=== PATIENT | female | born 2000 | race Caucasian/White ===

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

== ENCOUNTER 2020-01-24 13:31 | Emergency (ER) | payer MEDICAID, OTHER ==
--- OUTSIDE RECORDS SUMMARY | 2020-01-24 13:38 | XMS REPORT | Continuity of Care Document ---
:2000 Author Organization [facility] Address [address] [place] [address] Phone Care Team Providers Name Role Phone Ignacio Pickens STAFFING RN, Steffanie Unavailable Unavailable Allergies, Adverse Reactions, Alerts Substance Reaction Status morphine Active lorazepam SeizureStop breathing Active Medications Medication Instructions Dosage Effective Dates Status Comments (start - stop) MAGNESIUM (unknown Not Available - Active strength) LANTUS (unknown Not Available - Active strength) Humalog 100 unit/mL inject by - Active subcutaneous subcutaneous route solution as per insulin sliding scale protocol Problems Condition Effective Dates (start - Clinical Status Comments stop) Human immunodeficiency virus [HIV] - counseling Encounter for test, result negative Human immunodeficiency virus [HIV] - counseling Encounter for test, result negative Human immunodeficiency virus [HIV] - counseling Encounter [...] PREVENTIVE COUNSELING, Under 8 Minutes URINE TEST MA ONLY VISIT EST OTHER Medical Services Contraceptive 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 Other 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 STI Results Test Name Date and Time Measure Units Reference Range Abnormal Flag Status Comments Panel Description: High Sensitivity Urine Test Final High Sensitivity Urine 14:39:56 NegativeInternal Quality Final Test Control: Positive Advance Directives Directive Yes / No Effective Date File Name No information Encounters Encounter Practice Location Reason(s) Diagnoses Date Provider Providers Description For Visit Copied on Encounter [facility] [place] [facility] [place] Test immunodeficienc [facility] Provider: Of [facility] (chief y virus [HIV] 0 [facility]. [address] [place], [facility] counselingEncou [address], [place] [address] [place], [place], [facility], , [place], [address]. [address] [place], [place], result negative tel:[phone], [id number], [address] [place], [place] [address]. tel:[phone] tel:[phone] [facility] Charissa Nell. Referring [facility] [place] immunodeficienc [address] Provider: Of Greater y virus [HIV] 0 [facility], [place], [address], [place], [address] for [place]. [address], [place], , [place], [place], [place], [id number], [id number].Consu [place] lting tel:[phone] Provider: [id number] [place] [facility]. [facility]- Charissa Camejo. Referring [facility] [place] immunodeficienc [address] Provider: Of Greater y virus [HIV] 9 , [facility], [place], [address], [place], [address] for [place]. [address], [place], , [place], [place], [place], [id number], [address].Consu [place] l[place] tel:+ Provider: [id number] [place] [facility]. [facility] Encounter for Charissa Camejo. Referring [facility] [place] test, [address] Provider: Of Greater result [address], [place], [place], [address], [place], [address] for oth [place]. [address], [address], [place], [place], [place], [place], [address]. [id number], contraceptionEn [place] cntr screen for tel:[phone] w [phone] sexl mode of transmissCandid iasis of vulva and vaginaType 1 diabetes mellitus with unspecified complicationsDy suriaFrequency of micturition [facility] Encounter for Charissa Camejo. [facility] [place] [facility], [address] Of Greater [address], [place], [place], [place], [address], [address] [place], [place], [place], and advice on [id number], contraceptionEn [place] cntr screen for tel:[phone] infections w [phone] sexl mode of transmissUlcera tion of vulvaCandidiasi s of vulva and vagina [facility] Encounter for Charissa Camejo. [facility] [place] test, [address] Provider: Of Greater result negative [address], [place], [place], [address], [facility]. [address], [place], [place], [id number], [place] tel:[phone] [facility] Encounter for Jose L Referring [facility] [place] test, Julia. [address] Provider: Of Greater result [address], [place], negativeEncntr [place], [place], [place]anksha R, [address] [place] [address], New infections w tel:[phone] [address] , [place], [place], [place] [address] [place], [place], [id number], transmissEncoun [address] for initial tel:[phone] tel:[phone] prescription of [id number] injectable contracep [facility] Encounter for Charissa Camejo. [facility] [place] [facility], [address] Provider: Of [facility] result negative [address], [place], [place], [address], [facility]. [address] [place], [place], [id number], tel:[phone] [facility] PT, NegativeSTI [place] José. [facility] [place] Screening [address] Provider: Of [facility] [address], [place], [address]. [facility]. [address] tel:[phone], [id number], tel:[phone] Family History Family Member Diagnosis Age At [...] information Payers Payer name Insurance type Covered democrat ID Authorization(s) [facility] CI [id number] Social History Type Description Quantity Date Captured Comments Alcohol Use Details Unknown Caffeine Use Details Unknown Tobacco Use Status Unknown Smoking Status Former smoker Non-Smoking Tobacco : No Details Available : No Details Available 2019 Use Details Sex Female Vital Signs Date / Height Weight BMI Pulse Blood Temperature Respiratory Body Head BMI Pulse Inhaled Time: Rate Pressure Rate Surface Circumference percentile Ox Ox Area No information Chief Complaint And Reason For Visit Most recent encounter only, dated '01/18/2020 14:30'. Test ( chief complaint) Reason For Referral Reason For Referral No information Plan Of Treatment Date Type Action Status Appointment ZHANG COOK, PUMA. CHCitlaly BOOKED History Of Present Illness Encounter Date Complaint [...] Date No information Medical Equipment Description Device [place] Device Identifier Effective Dates (start - stop ) Status No information Mental Status Date Cognitive Assessment No information Health Concerns Observation Date No information Concern Status Date No information
--- OUTSIDE RECORDS SUMMARY | 2020-01-24 13:39 | XMS REPORT | Continuity of Care Document ---
:2000 External Reference #:[id number] Author Name Jaci Chowdhury Care Team Providers Name Role Phone Ac Espinoza DO - Family Care Team Information [employer] Medicine Problems Active Problems Provider Date Ketoacidosis [...] SIG Qnty Indications Ordering Date Provider Admelog for use in Insulin 30ml E10.65 Yogesh Mejia MD 01/01/2020 100Unit/ML pump, MDD 100 units Solution Humalog use with insulin 30ml Yogesh Mejia MD 10/10/2019 100Unit/ML pump, sliding scale Solution Minimed Guardian use with insulin 8units E10.65 Yogesh Mejia MD 10/10/2019 Sensor 3 pump, change every Misc 3-4 days as needed Minimed Pump use with insulin 10units E10.65 Yogesh Mejia MD 10/10/2019 Archbald 3ML pump every 3 days Res 3ML Misc Guardian Link 3 use with guardian 1units E10.65 Yogesh Mejia MD 10/10/2019 Transmitter sensors Link 3 Misc Freestyle Lite use to check your 1units E10.9 Nadine Umaña, 09/12/2019 Blood Glucose glucose 4 x/day DOORPERSON OR LU[employer]AGE PORTER-Cde Monitoring System Device Freestyle Precision test sugar as 75units E10.9 Nadine Fabiankins, 09/12/2019 Tacho Blood Glucose needed at least DOORPERSON OR LUGGAGE PORTER-Cde Test Strips 4x/day Strips Freestyle Unistick Use 4x/day 100units E10.9 Nadine Fabiankins, 09/12/2019 II Lancets DOORPERSON OR LUGGAGE PORTER-Cde Misc Freestyle Lite Test test blood sugar 4 200units E10.9 Nadine Chasidy, 09/12 times daily and as DOORPERSON OR LUGGAGE PORTER-Cde Strips needed Contour Next Link use to check blood 1units Yogesh Mejia MD 02/17/2019 Wireless Blood 6-8 times daily. Glucose Monitoring for use with Neronote 670g w/Device Kit insulin pump. Contour Next [...] (5000 Ut) Capsules seven capsules once weekly [place] Carbonate 1 capsule by mouth Unknown 3 times a day for 300mg Capsules manic-depression Thrivite 19 1 tablet by mouth Unknown 29-1mg once daily Tablets History Medications Admelog per day as 20ml Yogesh Mejia MD 09/26/2019 - 100Unit/ML directed in 10/04/2019 Solution insulin pump MDD 40 units daily Humalog Kwikpen 1:8 carb ratio, 30ml E10.9 Nadine Chasidy, 08/30/2019 - use with meals and DOORPERSON [employer] LU[employer]AGE PORTER-Cde 09/26/2019 100Unit/ML Solution snacks MDD 40 Pen-Inject [...] % Weight Percentile >97th Results Test Acquired Facility Test Result H/L Range Note Date Laboratory 01/03/2020 [facility] D Dimer < 200 Normal Less Than 1 test finding [address] Quantitative ng/mL [address] [place] [address] [phone] Troponin-I (TnI) 0.00 ng/mL <0.03 2 Lipid Panel - 01/03/2020 [facility] Creatine 71 U/L Normal 10- [address] Kinase(CK) [place] [address] [phone] Comp Metabolic 01/03/2020 [facility] Sodium 136 Normal 135- [address] mmol/[place] [address] [phone] Potassium 4.3 mmol/L Normal 3.5-5.0 Chloride 103 mmol/L Normal 101-111 Co2 Carbon Dioxide 26 mmol/L Normal 22-32 Anion Gap 7 mmol/L Normal 2-11 Glucose 230 mg/dL High 70-100 Blood Urea Nitrogen 15 mg/dL Normal 6-24 Creatinine 0.65 mg/dL Normal 0.51-0.95 BUN/Creatinine Ratio 23.1 High 8-20 Calcium 9.4 mg/dL Normal 8.6-10.3 Total Protein 6.5 g/dL Normal 6.4-8.9 Albumin 4.2 g/dL Normal 3.2-5.2 Globulin 2.3 g/dL Normal 2-4 Albumin/Globulin Ratio 1.8 Normal 1-3 Total Bilirubin 0.80 mg/dL Normal 0.2-1.0 Alkaline Phosphatase 81 U/L Normal 34-104 Alt 22 U/L Normal 7-52 Ast 17 U/L Normal 13-39 Egfr Non- 117.4 >60 Egfr 142.1 >60 3 Lipid Profile 01/03/2020 [facility] Triglycerides 118 mg/dL 4 (Trig/Chol/HDL) [address] [place] [address] [phone] Cholesterol 170 mg/dL 5 HDL Cholesterol 46.9 mg/dL 6 LDL Cholesterol 100 mg/dL 7 Laboratory test 01/03/2020 [facility] Phosphorus 4.2 mg/dL Normal 2.5-5.[address] [place] [address] [phone] Magnesium 1.9 mg/dL Normal 1.9-2.7 [place] 0.84 mmol/L Normal 0.6-1.2 Laboratory 12/15/2019 [facility] D Dimer < 200 Normal Less [address] Quantitative ng/mL Than [address] [place] [address] [phone] CBC Auto Diff 12/15/2019 [facility] White Blood 11.2 High 3.5- 10.8 101 Count 10^3/[place] [address] [phone] Red Blood Count 4.76 10^6/uL Normal 3.70-4.87 Hemoglobin 14.3 g/dL Normal 12.0-16.0 Hematocrit 41 % Normal 35-47 Mean Corpuscular Volume 85 fL Normal 80-97 Mean Corpuscular Hemoglobin 30 pg Normal 27-31 Mean Corpuscular HGB Conc 35 g/dL Normal 31-36 Red Cell Distribution Width 13 % Normal 10-15 Platelet Count 271 10^3/uL Normal 150-450 Mean Platelet Volume 9.3 fL Normal 7.4-10.4 Abs Neutrophils 8.2 10^3/uL High 1.5-7.7 Abs Lymphocytes 2.2 10^3/uL Normal 1.0-4.8 Abs Monocytes 0.7 10^3/uL Normal 0-0.8 Abs Eosinophils 0.1 10^3/uL Normal 0-0.6 Abs Basophils 0.0 10^3/uL Normal 0-0.2 Abs Nucleated RBC 0.0 10^3/uL Granulocyte % 72.7 % Lymphocyte % 19.6 % Monocyte % 6.4 % Eosinophil % 0.9 % Basophil % 0.4 % Nucleated Red Blood Cells % 0.1 Laboratory test 12/15/2019 [facility] Troponin-I (TnI) 0.01 ng/ mL <0.[address] [place] [address] [phone] Lipid Profile 12/15/2019 [facility] Triglycerides 116 mg/dL 10 (Trig/Chol/HDL) [address] [place] [address] [phone] Cholesterol 176 mg/dL 11 HDL Cholesterol 57.9 mg/dL 12 LDL Cholesterol 95 mg/dL 13 Laboratory test 12/15/2019 [facility] Creatine 133 U/L Normal 10-[address] Kinase(CK) [place] [address] [phone] Comp Metabolic 12/15/2019 [facility] Sodium 137 Normal 135- [address] mmol/[place] [address] [phone] Potassium 4.5 mmol/L Normal 3.5-5.0 Chloride 102 mmol/L Normal 101-111 Co2 Carbon Dioxide 27 mmol/L Normal 22-32 Anion Gap 8 mmol/L Normal 2-11 Glucose 323 mg/dL High 70-100 Blood Urea Nitrogen 12 mg/dL Normal 6-24 Creatinine 0.68 mg/dL Normal 0.51-0.95 BUN/Creatinine Ratio 17.6 Normal 8-20 Calcium 9.4 mg/dL Normal 8.6-10.3 Total Protein 6.6 g/dL Normal 6.4-8.9 Albumin 4.2 g/dL Normal 3.2-5.2 Globulin 2.4 g/dL Normal 2-4 Albumin/Globulin Ratio 1.8 Normal 1-3 Total Bilirubin 0.60 mg/dL Normal 0.2-1.0 Alkaline Phosphatase 93 U/L Normal 34-104 Alt 19 U/L Normal 7-52 Ast 13 U/L Normal 13-39 Egfr Non- 111.5 >60 Egfr 134.9 >60 14 Laboratory test 12/15/2019 [facility] Phosphorus 3.7 mg/dL Normal 2.5-5.0 finding [address] [place] [address] [phone] Magnesium 1.7 mg/dL Low 1.9-2.7 [place] < 0.10 mmol/L Low 0.6-1.2 HCG < 0.60 mIU/mL 15 Vitamin B12 485 pg/mL Normal 180-914 16 1 Please note: The following may produce a false positive D Dimer test: - Rheumatoid factor greater than 60 IU/ml - Plasma hemoglobin greater than 0.05 gm/dl - Bilirubin greater than 50 mg/dl - Lipids greater than 1000 mg/dl - FDP greater than 20 ug/ml 2 Troponin-I testing on Plasma Separator Tubes (PST) has a known false positive rate of 0.20-0.40%. All positive troponins reflex immediately to secondary confirmatory testing. Using the [employer] DxI 800 Access Immunoassay systems, the 99th percentile upper reference limit was demonstrated to be < 0.03 ng/mL. 3 Because ethnic data is not always readily [...] 15-29 5 Kidney failure <15 (or dialysis) 4 Desirable: <150 Borderline High: 150-199 High: 200-499 Very High: >500 5 Desirable: <200 Borderline High: 200-239 High: >239 6 Low: <40 Desirable: 40-60 High: >60 7 Desirable: <100 Near Optimal: 100-129 Borderline High: 130-159 High: 160-189 Very High: >189 8 Please note: The following may produce a false positive D Dimer test: - Rheumatoid factor greater than 60 IU/ml - Plasma hemoglobin greater than 0.05 gm/dl - Bilirubin greater than 50 mg/dl - Lipids greater than 1000 mg/dl - FDP greater than 20 ug/ml 9 Troponin-I testing on Plasma Separator Tubes (PST) has a known false positive rate of 0.20-0.40%. All positive troponins reflex immediately to secondary confirmatory testing. Using the [employer] DxI 800 Access Immunoassay systems, the 99th percentile upper reference limit was demonstrated to be < 0.03 ng/mL. 10 Desirable: <150 Borderline High: 150-199 High: 200-499 Very High: >500 11 Desirable: <200 Borderline High: 200-239 High: >239 12 Low: <40 Desirable: 40-60 High: >60 13 Desirable: <100 Near Optimal: 100-129 Borderline High: 130-159 High: 160-189 Very High: >189 14 Because ethnic data is not always readily [...] 15-29 5 Kidney failure <15 (or dialysis) 15 <5.0 Negative 5.0 - 25.0 Indeterminate (Repeat testing recommended after 72 hours) >25.0 Positive Perimenopausal women can display HCG levels of up to 20 mIU/mL 16 Normal Range 180 to 914 Indeterminate Range 145 to 180 Deficient Range <145 Procedures Date Code Description Status 12/13/2019 08887 EKG Tracing & Interpretation Completed 12/07/2019 19561 ECHO Transthoracic, Real-Time 2D With Doppler And Color Completed Flow 12/07/2019 43380 ECHO Transthoracic, Real-Time 2D With Doppler And Color Completed Flow 11/10/2019 50956 EEG Recording Awake & Asleep Completed Medical Devices Description No Information Available Encounters Type Date Location Provider Dx Diagnosis Office Visit 12/13/2019 [facility] Jose Perez R55 Syncope and 10:20a Pj Scruggs collapse E10.65 Type 1 diabetes mellitus with hyperglycemia Z79.4 director information security (current) use of insulin F31.31 Bipolar disorder, current episode depressed, mild R07.89 Other chest pain E83.39 Other disorders of phosphorus metabolism E83.42 Hypomagnesemia E66.9 Obesity, unspecified Office Visit 11/10/2019 [facility] 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 Office Visit 10/10/2019 [facility] Yogesh E10.65 Type 1 diabetes 3:40p [facility] MD Roberto mellitus with hyperglycemia Z79.4 director information security (current) use of insulin F31.31 Bipolar disorder, current episode depressed, mild Office Visit 09/26/2019 [facility] and Yogesh Mejia, E10.65 Type 1 diabetes 9:20a Endocrinology of mellitus with Semiautomatic Taper Operator hyperglycemia Z79.4 director information security (current) use of insulin F53.0 depression Office Visit 09/12/2019 [facility] and Nadine Umaña, E10.9 Type 1 diabetes 11:00a Endocrinology of [employer]PERSON [employer]AGE PORTER-Cde mellitus without Semiautomatic Taper Operator complications Office Visit 08/09/2019 [facility] and Yogesh Mejia, E10.9 Type 1 diabetes 3:13p Endocrinology of mellitus without Semiautomatic Taper Operator complications Assessments Date Code Description Provider 12/13/2019 R55 Syncope and collapse Jose Scruggs M.D. 12/13/2019 E10.65 Type 1 diabetes mellitus with Jose Scruggs M.D. hyperglycemia 12/13/2019 Z79.4 director information security (current) use of insulin Jose Scruggs M.D. 12/13/2019 F31.31 Bipolar disorder, current episode Jose Scruggs M.D. depressed, mild 12/13/2019 R07.89 Chest discomfort Jose Scruggs M.D. 12/13/2019 E83.39 Hypophosphatemia Jose Scruggs M.D. 12/13/2019 E83.42 Hypomagnesemia Jose Scruggs M.D. 12/13/2019 E66.9 Obesity, unspecified Jose Scruggs M.D. 12/07/2019 R55 Syncope and collapse Jose Scruggs M.D. 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 10/10/2019 E10.65 Type 1 diabetes mellitus with Yogesh Mejia MD hyperglycemia 10/10/2019 Z79.4 alf (current) use of insulin Yogesh Mejia MD 10/10/2019 F31.31 Bipolar disorder, current episode Yogesh Mejia MD depressed, mild 09/26/2019 E10.65 Type 1 diabetes mellitus with Yogesh Mejia MD hyperglycemia 09/26/2019 Z79.4 director information security (current) use of insulin Yogesh Mejia MD 09/26/2019 F53.0 depression Yogesh Mejia MD 09/12/2019 E10.9 Type 1 diabetes mellitus without KATHRYN Hanna-Tani complications 08/09/2019 E10.9 Type 1 diabetes mellitus without Yogesh Mejia MD complications 08/08/2019 O24.019 Pre-existing type 1 diabetes mellitus, in Abi Aguilera D.O. , unspecified trimester Plan of Treatment Future Appointment(s):01/09/2020 1:20 pm - Yogesh Mejia MD at [facility]01/18/2020 11:00 am - [place] ECHO Schedule at [facility]01/18/2020 11:30 am - Jose Scruggs M.D. at [facility] - Jose Scruggs M.D.R55 Syncope and vdnueyjwG90.65 Type 1 diabetes mellitus with qtmapmklqcalhO90.4 director information security (current) use of pmdxopfX58.31 Bipolar disorder, current episode depressed, mildR07.89 Chest discomfortNew Orders:Stress Test, Exercise Echocardiogram, Scheduled: E83.39 NklebnsshwzvobjpA61.42 KcjgdmfncsuwazJ52.9 Obesity, unspecified Functional Status Description No Information Available Mental Status Description No Information Available Referrals Description No Information Available
--- OUTSIDE RECORDS SUMMARY | 2020-01-24 13:39 | XMS REPORT | Continuity of Care Document ---
:2000 Author Organization [facility] Address [address] [place] [address] Phone Care Team Providers Name Role Phone Charissa SPOT REMOVERNell Unavailable Unavailable [facility], NURSE [place] Unavailable [...] ONLY VISIT EST OTHER Medical Services Contraceptive Harvester Operator.Svc. Other Harvester Operator.Svc. STI Results Test Name Date and Time Measure Units Reference Range Abnormal Flag Status Comments Panel Description: High Sensitivity Urine Test Final High Sensitivity Urine 11:45:03 NegativeInternal Quality Final Test Control: Positive Advance Directives Directive Yes / No Effective Date File Name No information Encounters Encounter Practice Location Reason(s) Diagnoses Date Provider Providers Description For Visit Copied on Encounter [facility] Charissa Camejo. [facility] [place] Test immunodeficienc [address] Provider: Of Greater (chief y virus [HIV] 0 , [place], [facility], complaint) [place], [address], [place], [address] for [address], [place], [place], [place], [place], [id number], [address].Consu [place] lting tel:[phone] Provider: [id number] NURSE [place] [facility]. [facility] Charissa Camejo. [facility] [place] immunodeficienc 3 [address] Provider: Of Greater y virus [HIV] [address] St, [place], [facility], [place], [address], [place], [address] for [place], [place], [place], [place], [place], [id number], [address].Consu [place] lting tel:[phone] Provider: [id number] NURSE [place] [facility]. [facility] Encounter for Charissa Camejo. [facility]erring [facility] [place] test, 2-201 [address] Provider: Of Greater result 8 , [facility], [place], [address], [place], [address] for oth [address], [facility] , [facility], [place], [place], [address]. [id number], contraceptionEn [place] cntr screen for tel:[phone] infections w [phone] sexl mode of transmissCandid iasis of vulva and vaginaType 1 diabetes mellitus with unspecified complicationsDy suriaFrequency of micturition [facility] Encounter for Charissa Camejo. [facility] [place] test, [address] Of Greater result [address], [place], [place], [place], [address], [address] for oth [place], [place] [facility] [place], [place], and advice on [id number], contraceptionEn [place] cntr screen for tel:[phone] infections w [phone] sexl mode of transmissUlcera tion of vulvaCandidiasi s of vulva and vagina [facility] Encounter for [facility]amejo. [facility], [address] Provider: Of Greater result negative [address], [place], [place], [address], [facility]. [address] [place], [id number], [place] tel:[phone] [facility] Encounter for Jose L Referring [facility] [place] test, Julia. [address] Provider: Of Greater result [address], [facility], negativeEncntr [place], [place], Akanksha R, [address] [place] [address], New infections w tel:[phone], [place], [place], [place] [address] [place], [place], [id number], transmissEncoun [address] for initial tel:[phone] tel:[phone] prescription of [phone] injectable contracep [facility] Encounter for Charissa Camejo. Consulting [facility] test, [address] Provider: Of Greater result negative [address], [place], [place], [address], [facility]. [address], [place], [place], [id number], [place] tel:[phone] [facility] PT, NegativeSTI Chilango José. Consulting [facility] Screening [address] Provider: Of Greater [address], [place], [place], [address]. [facility]PS[facility]. [address] tel:[phone] [facility] [id number] [place] [address], [id number], tel:[phone] Family History Family Member Diagnosis Age At [...] information Payers Payer name Insurance type Covered green party ID Authorization(s) Geraldo [facility] CI [id number] Social History Type Description Quantity Date Captured Comments Alcohol Use Details Unknown Caffeine Use Details Unknown Tobacco Use Status Unknown Smoking Status Unknown if ever smoked Non-Smoking Tobacco : No Details Available : No Details Available 2019 Use Details Sex Female Vital Signs Date / Height Weight BMI Pulse Blood Temperature Respiratory Body Head BMI Pulse Inhaled Time: Rate Pressure Rate Surface Circumference percentile [place] Area No information Chief Complaint And Reason For Visit Most recent encounter only, dated '12/21/2019 11:00'. Test ( chief complaint) Reason For Referral Reason For Referral No information Plan Of Treatment Date Type Action Status Appointment ZHANG COOK CANCELLED History Of Present Illness Encounter Date Complaint [...] Date No information Medical Equipment Description Device [place] Device Identifier Effective Dates (start - stop ) Status No information Mental Status Date Cognitive Assessment No information Health Concerns Observation Date No information Concern Status Date No information
--- OUTSIDE RECORDS SUMMARY | 2020-01-24 13:39 | XMS REPORT | Continuity of Care Document ---
:2000 External Reference #:[id number] Author Name Ac Espinoza D.O. Address [address] [place] [address] Care Team Providers Name Role Phone HCP given Care Team Information Head Of Human Resources Unavailable HCP given Care Team Information Head Of Human Resources Unavailable Problems Active Problems Provider Date Bipolar disorder Ac Espinoza D.O. Onset: 11/03/2019 Type 1 diabetes mellitus Ac Espinoza D.O. Onset: 11/03/2019 Attention deficit hyperactivity disorder Ac Espinoza D.O. Onset: 2018 Social History Type Date Description Comments Sex Unknown Tobacco Use Start: Unknown Patient is a current smoker, smokes every day Smoking Status Reviewed: 12/21/19 Patient is a current smoker, smokes every day Allergies, Adverse Reactions, Alerts Active Allergies Reaction Severity Comments Date Morphine difficulty breathing 11/03/2019 Medications Active Medications SIG Qnty Indications Ordering Date Provider Phospha 250 Neutral 2 by mouth every 180tabs Ac Espinoza, 12/21/2019 day D.O. [phone] Tablets Vitamin D3 take one capsule 90caps E55.9 [...] food as D.O. Tablets needed for pain [place] Carbonate take 2 capsules by 120caps F31.9 Ac Espinoza, 2018 mouth 2 times per D.O. 300mg Capsules day for manic-depression Amphetamine-Dextroam 1 by mouth twice 60tabs F90.9 Ac Espinoza, 2018 phetamine daily morning and D.O. 5mg Tablets night Formula 1 by mouth daily 90caps F31.9 Ac Espinoza, 11/03/2019 ok to switch to D.O. 28-0.8-235mg formulary Capsules formulation. Admelog for insulin pump Unknown 11/01/2019 100Unit/ML Solution Hall-Linyah Unknown 0.25-35mg-mcg Tablets History Medications Amoxicillin/Clavulanate 1 by mouth 20tabs K04.01 Olga, 11/17/2019 - Potassium twice a day Ac D.O. 11/27/2019 875-125mg Tablets Immunizations CPT Code Status Date Vaccine Lot # [id number] Given 09/07/2019 Influenza Virus Vaccine, Quadrivalent, Split, Preservative Free 73596 Given 07/22/2018 Influenza Virus Vaccine, Quadrivalent, Split, Preservative Free 15937 Given 08/07/2017 Influenza Virus Vaccine, Quadrivalent, Split, Preservative Free 96379 Given 07/06/2011 Varicella (Chicken Pox) Immunization 34670 Given 07/06/2011 Adacel or Boostrix, TDaP 63621 Given 07/03/2010 Rabies Immunization 86655 Given 06/29/2010 Rabies Immunization 87915 Given 06/26/2010 Rabies Immunization 00777 Given 06/26/2010 Rabies Immunization 71060 Given 03/12/2009 Hep A, Ped/Adolscent, 2 Dose 31687 Given 03/12/2009 Varicella (Chicken Pox) Immunization 27016 Given 02/22/2008 Menactra Menningitis Vaccine 13215 Given 02/22/2008 Hep A, Ped/Adolscent, 2 Dose 75538 Given 06/19/2005 Poliomyelitis Immunization 96338 Given 06/19/2005 MMR Virus Immunization 33558 Given 06/19/2005 Dtap Immunization (Tripedia) (Infanrix) 14500 Given 02/02/2002 MMR Virus Immunization 24184 Given 02/02/2002 Hib,HbOC,4 Dose Schedule 16246 Given 01/24/2002 Dtap Immunization (Tripedia) (Infanrix) 51959 Given 10/25/2001 Poliomyelitis Immunization 80399 Given 10/25/2001 Prevnar (Pneumococcal Conjugate) 79022 Given 04/27/2001 Prevnar (Pneumococcal Conjugate) 38867 Given 04/27/2001 Hib,HbOC,4 Dose Schedule 14315 Given 04/15/2001 Hep B Immunization, Ped/Adolescent To 11 Yrs 29342 Given 03/01/2001 Poliomyelitis Immunization 22407 Given 02/13/2001 Hib,HbOC,4 Dose Schedule 60498 Given 02/13/2001 Dtap Immunization (Tripedia) (Infanrix) 85802 Given 02/13/2001 Hep B Immunization, Ped/Adolescent To 11 Yrs 05084 Given 2000 Hep B Immunization, Ped/Adolescent To 11 Yrs 03411 Given 2000 Poliomyelitis Immunization 61571 Given 2000 Dtap Immunization (Tripedia) (Infanrix) 13918 Given 2000 Prevnar (Pneumococcal Conjugate) 25033 Given 2000 Hib,HbOC,4 Dose Schedule 99919 Given 2000 Dtap Immunization (Tripedia) (Infanrix) 71334 Given 2000 Hep B Immunization, Ped/Adolescent To 11 Yrs 45131 Given Unknown Prevnar (Pneumococcal Conjugate) Vital Signs Date Vital Result Comment 12/21/2019 2:38pm BP Systolic 120 mmHg BP Diastolic 70 mmHg Height 66 inches 5'6" Weight 262.00 lb BMI (Body Mass Index) 42.3 kg/m2 Body Mass Index Percentile 99 % 12/01/2019 3:22pm BP Systolic 126 mmHg BP Diastolic 80 mmHg Results Test Acquired Date Facility Test Result H/L Range Note Laboratory test 12/15/2019 [facility] [place] < 0.10 Low 0.6-1.2 finding [phone] mmol/L CBC Auto Diff 12/15/2019 [facility] White Blood 11.2 High 3.5-10.8 [phone] Count 10^3/uL Red Blood Count 4.76 10^6/uL Normal 3.70-4.87 [...] % Nucleated Red Blood Cells % 0.1 Comp Metabolic Panel 12/15/2019 [facility] Sodium 137 mmol/L Normal 135-145 [phone] Potassium 4.5 mmol/L Normal 3.5-5.0 Chloride 102 [...] Egfr Non- 111.5 >60 Egfr 134.9 >60 1 Laboratory test 12/15/2019 [facility] Vitamin B12 485 pg/mL Normal 180-914 2 finding [phone] Magnesium 1.7 mg/dL Low 1.9-2.7 HCG < 0.60 mIU/mL 3 Phosphorus 3.7 mg/dL Normal 2.5-5.0 D Dimer Quantitative < 200 ng/mL Normal Less Than 230 4 Troponin-I (TnI) 0.01 ng/mL <0.03 5 Lipid Profile (Trig/Chol/HDL) 12/15/2019 [facility] Triglycerides 116 mg/dL 6 [phone] Cholesterol 176 mg/dL 7 HDL Cholesterol 57.9 mg/dL 8 LDL Cholesterol 95 mg/dL 9 Laboratory test 12/15/2019 [facility] Creatine 133 U/L Normal 10-223 finding [phone] Kinase(CK) Laboratory test 12/13/2019 [facility] Point of Care 311 mg/dL High 70 -100 10 finding [phone] Glucose Laboratory test 12/12/2019 [facility] Point of Care 119 mg/dL High 70 -100 11 finding [phone] Glucose Laboratory test 12/12/2019 [facility] Point of Care 292 mg/dL High 70 -100 12 finding [phone] Glucose Urinalysis 12/12/2019 [facility] Urine Color Straw Profile [phone] Urine Appearance Clear Urine Specific Adolphus 1.031 High 1.010-1.030 Urine pH 5.0 Normal 5-9 Urine Urobilinogen Negative Negative Urine Ketones Negative Negative Urine Protein Negative Negative Urine Leukocytes Negative Negative Urine Blood Negative Negative Urine Nitrite Negative Negative Urine Bilirubin Negative Negative Urine Glucose 3+(>=500 mg/dL) Abnormal Negative Urine Drug 12/12/2019 [facility] Urine Amphetamine None Detected None Detect SCR ED & [phone] Screen Pain Clinic Urine Barbiturates Screen None Detected None Detect Urine Benzodiazepine Screen None Detected None Detect Urine Cannabinoids Screen None Detected None Detect Urine Cocaine Screen None Detected None Detect Urine Opiates Screen None Detected None Detect Urine Phencyclidine Screen None Detected None Detect 13 CBC Auto Diff 12/12/2019 [facility] White Blood 10.3 10^3/uL Normal 3.5-10.8 [phone] Count Red Blood Count 4.66 10^6/uL Normal 3.70-4.87 Hemoglobin 14.3 g/dL Normal 12.0-16.0 Hematocrit 39 % Normal 35-47 Mean Corpuscular Volume 84 fL Normal 80-97 Mean Corpuscular Hemoglobin 31 pg Normal 27-31 Mean Corpuscular HGB Conc 36 g/dL Normal 31-36 Red Cell Distribution Width 13 % Normal 10-15 Platelet Count 264 10^3/uL Normal 150-450 Mean Platelet Volume 8.9 fL Normal 7.4-10.4 Abs Neutrophils 6.2 10^3/uL Normal 1.5-7.7 Abs Lymphocytes 3.0 10^3/uL Normal 1.0-4.8 Abs Monocytes 0.7 10^3/uL Normal 0-0.8 Abs Eosinophils 0.3 10^3/uL Normal 0-0.6 Abs Basophils 0.1 10^3/uL Normal 0-0.2 Abs Nucleated RBC 0.0 10^3/uL Granulocyte % 60.3 % Lymphocyte % 28.9 % Monocyte % 7.0 % Eosinophil % 2.9 % Basophil % 0.9 % Nucleated Red Blood Cells % 0.0 Venous Blood Gas 12/12/2019 [facility] Venous Blood pH 7.39 Normal 7.32-7.43 [phone] Venous Pco2 37 mmHg Low 41-51 Venous Po2 54.0 mmHg High 35-45 Venous O2 Saturation 89.9 % High 70-80 Venous Blood Base Excess -2.2 mmol/L Low 0.0-4.0 14 Venous Bicarbonate Hco3 22.9 mmol/L Low 24-28 Laboratory 12/12/2019 [facility] Lactic Acid 2.2 mmol/L Critical 0.5- 2.0 15 test finding [phone] high Laboratory 11/20/2019 [facility] [place] 0.11 Low 0.6-1.2 test finding [phone] mmol/L CBC Auto Diff 11/20/2019 [facility] White Blood 10.1 Normal 3.5-10.8 [phone] Count 10^3/uL Red Blood Count 4.73 10^6/uL [...] Cells % 0.0 Comp Metabolic Panel 11/20/2019 [facility] Sodium 138 mmol/L Normal 135-145 [phone] Potassium 4.2 mmol/L Normal 3.5-5.0 Chloride 106 [...] Egfr Non- 133.9 >60 Egfr 162.0 >60 16 Laboratory test 11/20/2019 [facility] TSH (Thyroid 2.82 mcIU/mL Normal 0.34-5.60 finding [phone] Stim Horm) HCG < 0.60 mIU/mL 17 Vitamin B12 530 pg/mL Normal 180-914 18 Vitamin D Total 25(Oh) 14.5 ng/mL Low 20-50 19 Celiac Hla 11/20/2019 [facility] [id number] SEE BELOW 20 [phone] [id number] SEE BELOW 21 Celiac Gene Pairs Present? Yes Celiac Gene Interpretation See Comment 22 Celiac Panel 11/20/2019 [facility] Gliadin IgG <10.0 U 23 [phone] Gliadin IgA <10.0 U 24 Tissue Transglutaminase IgG Ab 1.6 U/mL 25 Tissue Transglutaminase IgA Ab <1.2 U/mL 26 Immunoglobulin A 55 mg/dL Abnormal 61 - 356 Celiac Interpretation See Comment 27 Laboratory test 11/20/2019 [facility] Magnesium 1.6 mg/dL Low 1.9- 2.7 finding [phone] Laboratory test 11/19/2019 [facility] Point of Care 235 mg/dL High 70 -100 28 finding [phone] Glucose Laboratory test 11/17/2019 In House Hemoglobin [...] 5 Kidney failure <15 (or dialysis) 2 Normal Range 180 to 914 Indeterminate Range 145 to 180 Deficient Range <145 3 <5.0 Negative 5.0 - 25.0 Indeterminate (Repeat testing recommended after 72 hours) >25.0 Positive Perimenopausal women can display HCG levels of up to 20 mIU/mL 4 Please note: The following may produce a false positive D Dimer test: - Rheumatoid factor greater than 60 IU/ml - Plasma hemoglobin greater than 0.05 gm/dl - Bilirubin greater than 50 mg/dl - Lipids greater than 1000 mg/dl - FDP greater than 20 ug/ml 5 Troponin-I testing on Plasma Separator Tubes (PST) has a known false positive rate of 0.20-0.40%. All positive troponins reflex immediately to secondary confirmatory testing. Using the [employer] DxI 800 Access Immunoassay systems, the 99th percentile upper reference limit was demonstrated to be < 0.03 ng/mL. 6 Desirable: <150 Borderline High: 150-199 High: 200-499 Very High: >500 7 Desirable: <200 Borderline High: 200-239 High: >239 8 Low: <40 Desirable: 40-60 High: >60 9 Desirable: <100 Near Optimal: 100-129 Borderline High: 130-159 High: 160-189 Very High: >189 10 Mandarin Tutor: [id number] Mandarin Tutor: [id number] Mandarin Tutor: [id number] 13 The urine specimen was tested at the listed cutoffs: Drug class test level (ng/mL) Amphetamines 500 Barbiturates 200 Benzodiazepine metabolites 200 Cocaine metabolites 150 Cannabinoids 50 Opiates 300 Pcp 25 Specimen was received without chain of custody. Results should be used for medical purposes only. 14 Reference ranges based on room air. 15 Critical Result LACT:2.2 Called to [id number] at: 23:09:07 by:[id number] Read back by:[id number] [facility] Severe Sepsis and Septic Shock Management Bundle Measure requires all lactic acids initially measuring >2.0 mmol/L be repeated. 16 Because ethnic data is not always readily [...] 15-29 5 Kidney failure <15 (or dialysis) 17 <5.0 Negative 5.0 - 25.0 Indeterminate (Repeat testing recommended after 72 hours) >25.0 Positive Perimenopausal women can display HCG levels of up to 20 mIU/mL 18 Normal Range 180 to 914 Indeterminate Range 145 to 180 Deficient Range <145 19 Total 25-Hydroxyvitamin D2 and D3 (25-OH-VitD) <10 ng/mL (severe deficiency) 10-19 ng/mL (mild to moderate deficiency) 20-50 ng/mL (optimum levels) 51-80 ng/mL (increased risk of hypercalciuria) >80 ng/mL (toxicity possible) 20 RESULT: 01:03,03 REFERENCE VALUE Not Applicable 21 RESULT: 03:02,06:03 DQ Serologic Equivalent: 8,6 REFERENCE VALUE Not Applicable 22 These genes are permissive for celiac disease. The absence of HLA celiac permissive genes would make the presence of celiac disease unlikely. However, these genes can also be present in the normal population. ADDITIONAL INFORMATION Method: Molecular typing of HLA antigens performed using reverse SSOP and/or SSP methods, reported as serological equivalents and low to medium resolution molecular values. Test Performed by: [facility] [address] [place] [address] Pattern Data Operator: Geovanni Forte M.D. Ph.D.; CLIA# [id number] 23 REFERENCE VALUE <20.0 (Negative) Test Performed by: [facility] [address] [place] [address] Pattern Data Operator: Geovanni Forte M.D. Ph.D.; CLIA# [id number] 24 REFERENCE VALUE <20.0 (Negative) Test Performed by: [place] [address] Pattern Data Operator: Geovanni Forte M.D. Ph.D.; CLIA# [id number] 25 REFERENCE VALUE <6.0 (Negative) Test Performed by: [place] [address] Pattern Data Operator: Geovanni Forte M.D. Ph.D.; CLIA# [id number] 26 REFERENCE VALUE <4.0 (Negative) Test Performed by: [place] [address] Pattern Data Operator: Geovanni Forte M.D. Ph.D.; CLIA# [id number] 27 Negative serology. Celiac disease unlikely. However, approximately 10% of patients with celiac disease are seronegative. Also, patients who are already adhering to a gluten-free diet may be seronegative. If celiac disease is highly clinically suspected, consider HLA-DQ typing. Test Performed by: [place] [address] Pattern Data Operator: Geovanni Forte M.D. Ph.D.; CLIA# [id number] 28 Mandarin Tutor: [id number] Procedures Description No Information Available Medical Devices Description No Information Available Encounters Type Date Location Provider Dx Diagnosis Office Visit 12/21/2019 Main Office Ac Espinoza, E10.9 Type 1 diabetes 2:30p D.O. mellitus without complications F31.9 Bipolar disorder, unspecified F90.9 Attention-deficit hyperactivity disorder, unspecified type Z96.41 Presence of insulin pump (external) (internal) R51 Headache R53.83 Other fatigue G40.89 Other seizures Z63.79 Other stressful life events affecting family and household Z68.41 Body mass index (BMI) 40.0-44.9, adult Office Visit 12/01/2019 2:45p Main Office Tj Espinozaon, E10.9 Type 1 diabetes D.O. mellitus without complications F31.9 Bipolar disorder, unspecified F90.9 Attention-deficit hyperactivity disorder, unspecified type Z96.41 Presence of insulin pump (external) (internal) R51 Headache R53.83 Other fatigue G40.89 Other seizures Office Visit 11/17/2019 4:00p Main Office Tj Espinozaon, E10.9 Type 1 diabetes D.O. mellitus without [...] 40.0-44.9, adult Assessments Date Code Description Provider 12/21/2019 E10.9 Type 1 diabetes mellitus without complications Nanik Ac, D.O. 12/21/2019 F31.9 Bipolar disorder, unspecified Sopchak, Ac, D.O. 12/21/2019 F90.9 Attention-deficit hyperactivity disorder, Sopchak, Ac, D.O. unspecified type 12/21/2019 Z96.41 Presence of insulin pump (external) (internal) Sopchak, Ac, D.O. 12/21/2019 R51 Headache Sopchak, Ac, D.O. 12/21/2019 R53.83 Other fatigue Sopchak, Ac, D.O. 12/21/2019 G40.89 Other seizures Sopchak, Ac, D.O. 12/21/2019 Z63.79 Other stressful life events affecting family Sopchak, Ac, D.O. and household 12/21/2019 Z68.41 Body mass index (BMI) 40.0-44.9, adult Tj Espinozaon, D.O. 12/01/2019 E10.9 Type 1 diabetes mellitus without complications Tj Espinozaon, D.O. 12/01/2019 F31.9 Bipolar disorder, unspecified Sopchak, Ac, D.O. 12/01/2019 F90.9 Attention-deficit hyperactivity disorder, SoprandakTjon, D.O. unspecified type 12/01/2019 Z96.41 Presence of insulin pump (external) (internal) TraychakTjon, D.O. 12/01/2019 R51 Headache SopchakTjon, D.O. 12/01/2019 R53.83 Other fatigue NanikTjon, D.O. 12/01/2019 G40.89 Other seizures SoprandakTjon, D.O. 11/17/2019 E10.9 Type 1 diabetes mellitus without complications Tj Espinozaon, D.O. 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 11/17/2019 F31.9 Bipolar disorder, unspecified Sopchak Ac, D.O. 11/17/2019 F90.9 Attention-deficit hyperactivity disorder, SoprandakTjon, D.O. unspecified type 11/17/2019 Z96.41 Presence of insulin pump (external) (internal) Tj Espinozaon, D.O. 11/03/2019 F31.9 Bipolar disorder, unspecified SopchakTjon, D.O. 11/03/2019 E10.9 Type 1 diabetes mellitus without complications NanikTjon, D.O. 11/03/2019 F90.9 Attention-deficit hyperactivity disorder, SoprandakTjon, D.O. unspecified type 11/03/2019 E66.9 Obesity, unspecified NanikTjon, D.O. 11/03/2019 Z68.41 Body mass index (BMI) 40.0-44.9, adult Ac Espinoza, D.O. Plan of Treatment Future Appointment(s):01/04/2020 2:45 pm - Ac Espinoza D.O. at Main Dxtpzn4912/21/2019 - Ac Espinoza D.O.E10.9 Type 1 diabetes mellitus without complicationsNew Labs:Phosphorus, Scheduled: 12/27/19F31.9 Bipolar disorder, unspecifiedNew Labs:[place], Scheduled: 12/27/19CBC Auto Diff, Scheduled: Comp Metabolic Panel, Scheduled: 12/27/19Vitamin B12, Scheduled: Magnesium, Scheduled: 12/27/19Phosphorus, Scheduled: 12/27/19Follow up:1 week labs drawn 2 weeks recheck bipolar, adhd, t1d Follow up with neurologist in [place] Attention-deficit hyperactivity disorder, unspecified typeNew Labs:Phosphorus, Scheduled: 12/27/19Z96.41 Presence of insulin pump (external) ( internal)R51 LidutpniV27.83 Other frlifhpS00.89 Other seizuresReferral:[facility], InohkqmtoE47.79 Other stressful life events affecting family and adglxzhygH13.41 Body mass index (BMI) 40.0-44.9, adult Functional Status Description No Information Available Mental Status Description No Information Available Referrals Refer to Dr Reason for Referral Status Appt Date [facility] recurrent episodes unsure if they are Created related to epileptic episodes. consider extended monitoring/eeg. [address] [place], [place] [id number] [phone] [facility] Syncopal episodes preceded by chest pain - Sent Originally seen in 2019. Frequency has increased about 1 month after of daughter Jul 2019. frequency daily - weekly. Consult and Treat [facility] [place] of [address] [address] [phone]
--- OUTSIDE RECORDS SUMMARY | 2020-01-24 13:39 | XMS REPORT | Continuity of Care Document ---
:2000 External Reference #:[id number] Author Name Jose Scruggs M.D. (transmitted by agent of provider Teodora Jacinto ) Address [address] [place] [id number] Care Team Providers Name Role Phone Ac Espinoza DO - Family Care Team Information [place] Supervisor [phone] Medicine Problems Active Problems Provider Date Ketoacidosis [...] insulin 10units E10.65 Yogesh Mejia MD 10/10/2019 [place] 3ML pump every 3 days Res 3ML Misc Guardian Link 3 use with guardian 1units E10.65 Yogesh Mejia MD 10/10/2019 Transmitter sensors Link 3 Misc Freestyle Lite use to check your 1units E10.9 Nadine Umaña, 09/12/2019 Blood Glucose glucose 4 x/day BRIM [employer] CROWN PRESSER-Cde Monitoring System Device Freestyle Precision test sugar as 75units E10.9 Nadine Umaña, 09/12/2019 Tacho Blood Glucose needed at least BRIM [employer] CROWN PRESSER-Cde Test Strips 4x/day Strips Freestyle Unistick Use 4x/day 100units E10.9 Nadine Fabiankins, 09/12/2019 II Lancets BRIM [employer] CROWN PRESSER-Cde Misc Freestyle Lite Test test blood sugar 4 200units E10.9 Nadine Fabiankins, 09/12 times daily and as BRIM AND CROWN PRESSER-Cde Strips needed Contour Next Link use to check blood 1units Yogesh Mejia MD 02/17/2019 Wireless Blood 6-8 times daily. Glucose Monitoring for use with [employer] 670g w/Device Kit insulin pump. Contour Next [...] (5000 Ut) Capsules seven capsules once weekly [place] Carbonate 1 capsule by mouth Unknown 3 times a day for 300mg Capsules manic-depression Thrivite 19 1 tablet by mouth Unknown 29-1mg once daily Tablets History Medications Admelog per day as 20ml Yogesh Mejia MD 09/26/2019 - 100Unit/ML directed in 10/04/2019 Solution insulin pump MDD 40 units daily Humalog Kwikpen 1:8 carb ratio, 30ml E10.9 Nadine Fabiankins, 08/30/2019 - use with meals and BRIM [employer] CROWN PRESSER-Cde 09/26/2019 100Unit/ML Solution snacks MDD 40 Pen-Inject [...] Result H/L Range Note Date Laboratory 01/03/2020 [facility] D Dimer < 200 Normal Less Than 1 test finding [address] Quantitative ng/mL 230 [place] [address] [phone] Troponin-I (TnI) 0.00 ng/mL <0.03 2 Lipid Panel - 01/03/2020 [facility] Creatine 71 U/L Normal 10- [address] Kinase(CK) [place] [address] [phone] Comp Metabolic 01/03/2020 [facility] Sodium 136 Normal 135- [address] mmol/[place] [address] [phone] Potassium 4.3 mmol/L Normal 3.5-5.0 Chloride 103 [...] Egfr 142.1 >60 3 Lipid Profile 01/03/2020 [facility] Triglycerides 118 mg/dL 4 (Trig/Chol/HDL) [address] [place] [address] [phone] Cholesterol 170 mg/dL 5 HDL Cholesterol 46.9 mg/dL 6 LDL Cholesterol 100 mg/dL 7 Laboratory test 01/03/2020 [facility] Phosphorus 4.2 mg/dL Normal 2.5-5.[address] [place] [address] [phone] Magnesium 1.9 mg/dL Normal 1.9-2.7 [place] 0.84 mmol/L Normal 0.6-1.2 Laboratory 12/15/2019 [facility] D Dimer < 200 Normal Less [address] Quantitative ng/mL Than [address] [place] [address] [phone] CBC Auto Diff 12/15/2019 [facility] White Blood 11.2 High 3.5- 10.[address] Count 10^3/[place] [address] [phone] Red Blood Count 4.76 10^6/uL Normal 3.70-4.87 [...] Blood Cells % 0.1 Laboratory test 12/15/2019 [facility] Troponin-I (TnI) 0.01 ng/ mL <0.[address] [place] [address] [phone] Lipid Profile 12/15/2019 [facility] Triglycerides 116 mg/dL 10 (Trig/Chol/HDL) [address] [place] [address] [phone] Cholesterol 176 mg/dL 11 HDL Cholesterol 57.9 mg/dL 12 LDL Cholesterol 95 mg/dL 13 Laboratory test 12/15/2019 [facility] Creatine 133 U/L Normal 10-223 finding 101 Kinase(CK) [place] [address] [phone] Comp Metabolic 12/15/2019 [facility] Sodium 137 Normal 135- [address] mmol/[place] [address] [phone] Potassium 4.5 mmol/L Normal 3.5-5.0 Chloride 102 [...] Egfr 134.9 >60 14 Laboratory test 12/15/2019 [facility] Phosphorus 3.7 mg/dL Normal 2.5-5.0 finding [address] [place] [address] [phone] Magnesium 1.7 mg/dL Low 1.9-2.7 [place] < 0.10 mmol/L Low 0.6-1.2 HCG < [...] immediately to secondary confirmatory testing. Using the [employer] 800 Access Immunoassay systems, the 99th percentile [...] immediately to secondary confirmatory testing. Using the [employer] DxI 800 Access Immunoassay systems, the 99th [...] Range <145 Procedures Date Code Description Status 01/18/2020 94861 ECHO Stress Test Incl Perf Contiuous ekg Monitoring W/Phys Completed Superv 12/13/2019 47655 EKG Tracing & Interpretation Completed 12/07/2019 00023 Mobile Cardiovascular Telemetry Over 24 HR Up To 30 Days Completed 12/07/2019 22098 ECHO Transthoracic, Real-Time 2D With Doppler And Color Completed Flow 12/07/2019 80771 ECHO Transthoracic, Real-Time 2D With Doppler And Color Completed Flow 11/10/2019 55067 EEG Recording Awake & Asleep Completed Medical Devices Description No Information Available Encounters Type Date Location Provider Dx Diagnosis Office Visit 12/13/2019 [facility] Jose Perez R55 Syncope and 10:20a Pj Scruggs collapse E10.65 Type 1 diabetes mellitus with hyperglycemia Z79.4 lobsterman (current) use of insulin F31.31 Bipolar disorder, current episode depressed, mild R07.89 Other chest pain E83.39 Other disorders of phosphorus metabolism E83.42 Hypomagnesemia E66.9 Obesity, unspecified Office Visit 11/10/2019 [facility] 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 Office Visit 10/10/2019 [facility] Yogesh E10.65 Type 1 diabetes 3:40p [facility] of [facility] MD Roberto mellitus with hyperglycemia Z79.4 intermediate (current) use of insulin F31.31 Bipolar disorder, current episode depressed, mild Office Visit 09/26/2019 [facility] Yogesh Mejia, E10.65 Type 1 diabetes 9:20a Endocrinology of MD mellitus with Acetylene Operator hyperglycemia Z79.4 lobsterman (current) use of insulin F53.0 depression Office Visit 09/12/2019 [facility] Nadine Umaña, E10.9 Type 1 diabetes 11:00a Endocrinology of [employer]OWN [employer]ESSER-Cde mellitus without Acetylene Operator complications Office Visit 08/09/2019 [facility] Yogesh Mejia, E10.9 Type 1 diabetes 3:13p Endocrinology of mellitus without Acetylene Operator complications Assessments Date Code Description Provider 01/18/2020 E10.65 Type 1 diabetes mellitus with [facility] hyperglycemia 01/18/2020 R06.00 Dyspnea, unspecified [facility] 01/18/2020 R07.89 Other chest pain [facility] 01/18/2020 R55 Syncope and collapse [facility] 12/13/2019 R55 Syncope and collapse Jose Scruggs M.D. 12/13/2019 E10.65 Type 1 diabetes mellitus with Jose Scruggs M.D. hyperglycemia 12/13/2019 Z79.4 lobsterman (current) use of insulin Jose Scruggs M.D. 12/13/2019 F31.31 Bipolar disorder, current episode Jose Scrgugs M.D. depressed, mild 12/13/2019 R07.89 Chest discomfort Jose Scruggs M.D. 12/13/2019 E83.39 Hypophosphatemia Jose Scruggs M.D. 12/13/2019 E83.42 Hypomagnesemia Jose Scruggs M.D. 12/13/2019 E66.9 Obesity, unspecified Jose Scruggs M.D. 12/07/2019 R55 Syncope and collapse Jose Scruggs M.D. 12/07/2019 R55 Syncope and collapse Jose Scruggs M.D. 12/07/2019 R00.0 Tachycardia, unspecified Jose Scruggs M.D. 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 10/10/2019 E10.65 Type 1 diabetes mellitus with Yogesh Mejia MD hyperglycemia 10/10/2019 Z79.4 intermediate (current) use of insulin Yogesh Mejia MD 10/10/2019 F31.31 Bipolar disorder, current episode Yogesh Mejia MD depressed, mild 09/26/2019 E10.65 Type 1 diabetes mellitus with Yogesh Mejia MD hyperglycemia 09/26/2019 Z79.4 lobsterman (current) use of insulin Yogesh Mejia MD 09/26/2019 F53.0 depression Yogesh Mejia MD 09/12/2019 E10.9 Type 1 diabetes mellitus without KATHRYN Hanna-Tani complications 08/09/2019 E10.9 Type 1 diabetes mellitus without Yogesh Mejia MD complications 08/08/2019 O24.019 Pre-existing type 1 diabetes mellitus, in Abi Aguilera D.O. , unspecified trimester Plan of Treatment 12/13/2019 - Jose Scruggs M.D.R55 Syncope and bzfdlqfwW56.65 Type 1 diabetes mellitus with poplmbusrdrkbT81.4 lobsterman (current) use of tqnenlqI32.31 Bipolar disorder, current episode depressed, mildR07.89 Chest discomfortNew Orders:Stress Test, Exercise Echocardiogram, Scheduled: E83.39 LpfcpkyujcnevxeoQ13.42 GzomjsiooracawP43.9 Obesity, unspecified Functional Status Description No Information Available Mental Status Description No Information Available Referrals Description No Information Available
--- OUTSIDE RECORDS SUMMARY | 2020-01-24 13:39 | XMS REPORT | Continuity of Care Document ---
:2000 External Reference #:[id number] Author Name Jose Scruggs M.D. (transmitted by agent of provider Yasmin Villar) Address [address] [place] [phone] Care Team Providers Name Role Phone Ac Espinoza DO - Family Care Team Information Envelope Sealer Operator [phone] Medicine Problems Active Problems Provider Date Ketoacidosis [...] insulin 10units E10.65 Yogesh Mejia MD 10/10/2019 [place] 3ML pump every 3 days Res 3ML Misc Guardian Link 3 use with guardian 1units E10.65 Yogesh Mejia MD 10/10/2019 Transmitter sensors Link 3 Misc Freestyle Lite use to check your 1units E10.9 Nadine Umaña, 09/12/2019 Blood Glucose glucose 4 x/day SECURITY ASSURANCE ANALYST-Cde Monitoring System Device Freestyle Precision test sugar as 75units E10.9 Nadine Umaña, 09/12/2019 [place] Blood Glucose needed at least SECURITY ASSURANCE ANALYST-Cde Test Strips 4x/day Strips Freestyle Unistick Use 4x/day 100units E10.9 Nadine Fabiankins, 09/12/2019 II Lancets SECURITY ASSURANCE ANALYST-Cde Misc Freestyle Lite Test test blood sugar 4 200units E10.9 Nadine Fabiankins, 09/12 times daily and as SECURITY ASSURANCE ANALYST-Cde Strips needed Contour Next Link use to check blood 1units Yogesh Mejia MD 02/17/2019 Wireless Blood 6-8 times daily. Glucose Monitoring for use with [employer] 670g w/Device Kit insulin pump. Contour Next [...] (5000 Ut) Capsules seven capsules once weekly [place] Carbonate 1 capsule by mouth Unknown 3 times a day for 300mg Capsules manic-depression Thrivite 19 1 tablet by mouth Unknown 29-1mg once daily Tablets History Medications Admelog per day as 20ml Yogesh Mejia MD 09/26/2019 - 100Unit/ML directed in 10/04/2019 Solution insulin pump MDD 40 units daily Humalog Kwikpen 1:8 carb ratio, 30ml E10.9 Nadine Fabiankins, 08/30/2019 - use with meals and SECURITY ASSURANCE ANALYST-Cde 09/26/2019 100Unit/ML Solution snacks MDD 40 Pen-Inject [...] Result H/L Range Note Date Laboratory 01/03/2020 [facility] D Dimer < 200 Normal Less Than 1 test finding [address] Quantitative ng/mL [address] [place] [address] [phone] Troponin-I (TnI) 0.00 ng/mL <0.03 2 Lipid Panel - 01/03/2020 [facility] Creatine 71 U/L Normal 10- [address] Kinase(CK) [place] [address] [phone] Comp Metabolic 01/03/2020 [facility] Sodium 136 Normal 135- [address] mmol/[place] [address] [phone] Potassium 4.3 mmol/L Normal 3.5-5.0 Chloride 103 [...] Egfr 142.1 >60 3 Lipid Profile 01/03/2020 [facility] Triglycerides 118 mg/dL 4 (Trig/Chol/HDL) [address] [place] [address] [phone] Cholesterol 170 mg/dL 5 HDL Cholesterol 46.9 mg/dL 6 LDL Cholesterol 100 mg/dL 7 Laboratory test 01/03/2020 [facility] Phosphorus 4.2 mg/dL Normal 2.5-5.[address] [place] [address] [phone] Magnesium 1.9 mg/dL Normal 1.9-2.7 [place] 0.84 mmol/L Normal 0.6-1.2 Laboratory 12/15/2019 [facility] D Dimer < 200 Normal Less [address] Quantitative ng/mL Than [address] [place] [address] [phone] CBC Auto Diff 12/15/2019 [facility] White Blood 11.2 High 3.5- 10.[address] Count 10^3/[place] [address] [phone] Red Blood Count 4.76 10^6/uL Normal 3.70-4.87 [...] Blood Cells % 0.1 Laboratory test 12/15/2019 [facility] Troponin-I (TnI) 0.01 ng/ mL <0.[address] [place] [address] [phone] Lipid Profile 12/15/2019 [facility] Triglycerides 116 mg/dL 10 (Trig/Chol/HDL) [address] [place] [address] [phone] Cholesterol 176 mg/dL 11 HDL Cholesterol 57.9 mg/dL 12 LDL Cholesterol 95 mg/dL 13 Laboratory test 12/15/2019 [facility] Creatine 133 U/L Normal 10-223 finding 101 [facility] Kinase(CK) [place] [address] [phone] Comp Metabolic 12/15/2019 [facility] Sodium 137 Normal 135- [address] mmol/[place] [address] [phone] Potassium 4.5 mmol/L Normal 3.5-5.0 Chloride 102 [...] Egfr 134.9 >60 14 Laboratory test 12/15/2019 [facility] Phosphorus 3.7 mg/dL Normal 2.5-5.0 finding [address] [place] [address] [phone] Magnesium 1.7 mg/dL Low 1.9-2.7 [place] < 0.10 mmol/L Low 0.6-1.2 HCG < [...] immediately to secondary confirmatory testing. Using the [employer] 800 Access Immunoassay systems, the 99th percentile [...] immediately to secondary confirmatory testing. Using the [employer] DxI 800 Access Immunoassay systems, the 99th [...] <145 Procedures Date Code Description Status 12/13/2019 72511 EKG Tracing & Interpretation Completed 12/07/2019 45304 Mobile Cardiovascular Telemetry Over 24 HR Up To 30 Days Completed 12/07/2019 47338 ECHO Transthoracic, Real-Time 2D With Doppler And Color Completed Flow 12/07/2019 71232 ECHO Transthoracic, Real-Time 2D With Doppler And Color Completed Flow 11/10/2019 14471 EEG Recording Awake & Asleep Completed Medical Devices Description No Information Available Encounters Type Date Location Provider Dx Diagnosis Office Visit 12/13/2019 [facility] Jose Perez R55 Syncope and 10:20a Pj Scruggs collapse E10.65 Type 1 diabetes mellitus with hyperglycemia Z79.4 [facility] (current) use of insulin F31.31 Bipolar disorder, current episode depressed, mild R07.89 Other chest pain E83.39 Other disorders of phosphorus metabolism E83.42 Hypomagnesemia E66.9 Obesity, unspecified Office Visit 11/10/2019 [facility] 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 Office Visit 10/10/2019 [facility] Zuñiga E10.65 Type 1 diabetes 3:40p [facility] MD Roberto mellitus with hyperglycemia Z79.4 MCC (current) use of insulin F31.31 Bipolar disorder, current episode depressed, mild Office Visit 09/26/2019 [facility] and Yogesh Mejia, E10.65 Type 1 diabetes 9:20a Endocrinology of MD mellitus with Parcel Post Truck Driver hyperglycemia Z79.4 MCC (current) use of insulin F53.0 depression Office Visit 09/12/2019 [facility] and Nadine Umaña, E10.9 Type 1 diabetes 11:00a Endocrinology of SECURITY ASSURANCE ANALYST-Cde mellitus without [employer] Truck Driver complications Office Visit 08/09/2019 [facility] Yogesh Mejia, E10.9 Type 1 diabetes 3:13p Endocrinology of MD mellitus without Parcel Post Truck Driver complications Assessments Date Code Description Provider 12/13/2019 R55 Syncope and collapse Jose Scruggs M.D. 12/13/2019 E10.65 Type 1 diabetes mellitus with Jose Scruggs M.D. hyperglycemia 12/13/2019 Z79.4 remote computer terminal operator (current) use of insulin Jose Scruggs M.D. [...] Scruggs M.D. 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 10/10/2019 E10.65 Type 1 diabetes mellitus with Yogesh Mejia MD hyperglycemia 10/10/2019 Z79.4 MCC (current) use of insulin Yogesh Mejia MD 10/10/2019 F31.31 Bipolar disorder, current episode Yogesh Mejia MD depressed, mild 09/26/2019 E10.65 Type 1 diabetes mellitus with Yogesh Mejia MD hyperglycemia 09/26/2019 Z79.4 MCC (current) use of insulin Yogesh Mejia MD 09/26/2019 F53.0 depression Yogesh Mejia MD 09/12/2019 E10.9 Type 1 diabetes mellitus without KATHRYN Hanna-Cdrosalba complications 08/09/2019 E10.9 Type 1 diabetes mellitus without Yogesh Mejia MD complications 08/08/2019 O24.019 Pre-existing type 1 diabetes mellitus, in Abi Aguilera D.O. , unspecified trimester Plan of Treatment Future Appointment(s):01/18/2020 11:00 am - [place] [facility] Schedule at [facility]01/18/2020 11:30 am - Jose Scruggs M.D. at [facility] - Jose Scruggs M.D.R55 Syncope and poqtajuuY08.65 Type 1 diabetes mellitus with mwflvlxfnkaytI35.4 remote computer terminal operator (current) use of gfnxjxiP94.31 Bipolar disorder, current episode depressed, mildR07.89 Chest discomfortNew Orders:Stress Test, Exercise Echocardiogram, Scheduled: E83.39 NullssvplucwpmlmC27.42 SceajlgljervtkN19.9 Obesity, unspecified Functional Status Description No Information Available Mental Status Description No Information Available Referrals Description No Information Available
--- OUTSIDE RECORDS SUMMARY | 2020-01-24 13:39 | XMS REPORT | Continuity of Care Document ---
:2000 External Reference #:[id number] Author Name Jaci Chowdhury Care Team Providers Name Role Phone Ac Espinoza DO - Family Care Team Information Cassandra Consultant Medicine Problems Active Problems Provider Date Ketoacidosis [...] insulin 10units E10.65 Yogesh Mejia MD 10/10/2019 [place] 3ML pump every 3 days Res 3ML Misc Guardian Link 3 use with guardian 1units E10.65 Yogesh Mejia MD 10/10/2019 Transmitter sensors Link 3 Misc Freestyle Lite use to check your 1units E10.9 Nadine Umaña, 09/12/2019 Blood Glucose glucose 4 x/day [employer] SERVICEPERSON-Cde Monitoring System Device Freestyle Precision test sugar as 75units E10.9 Nadine Fabiankins, 09/12/2019 [place] Blood Glucose needed at least [employer] SERVICEPERSON-Cde Test Strips 4x/day Strips Freestyle Unistick Use 4x/day 100units E10.9 Nadine Fabiankins, 09/12/2019 II Lancets [employer] SERVICEPERSON-Cde Misc Freestyle Lite Test test blood sugar 4 200units E10.9 Nadine Chasidy, 09/12 times daily and as [employer]IM[employer] SERVICEPERSON-Cde Strips needed Contour Next Link use to check blood 1units Yogesh Mejia MD 02/17/2019 Wireless Blood 6-8 times daily. Glucose Monitoring for use with Jobzella 670g w/Device Kit insulin pump. Contour Next [...] (5000 Ut) Capsules seven capsules once weekly [place] Carbonate 1 capsule by mouth Unknown 3 times a day for 300mg Capsules manic-depression Thrivite 19 1 tablet by mouth Unknown 29-1mg once daily Tablets History Medications Admelog per day as 20ml Yogesh Mejia MD 09/26/2019 - 100Unit/ML directed in 10/04/2019 Solution insulin pump MDD 40 units daily Humalog Kwikpen 1:8 carb ratio, 30ml E10.9 Nadine Chasidy, 08/30/2019 - use with meals and [employer] SERVICEPERSON-Cde 09/26/2019 100Unit/ML Solution snacks MDD 40 Pen-Inject [...] Test Result H/L Range Note Date Laboratory 12/15/2019 [facility] D Dimer < 200 Normal Less Than 1 test finding [address] Quantitative ng/mL [address] [place] [address] [phone] CBC Auto Diff 12/15/2019 [facility] White Blood 11.2 High 3.5- 10.[address] Count 10^3/[place] [address] [phone] Red Blood Count 4.76 10^6/uL Normal 3.70-4.87 [...] Blood Cells % 0.1 Laboratory test 12/15/2019 [facility] Troponin-I (TnI) 0.01 ng/ mL <0.[address] [place] [address] [phone] Lipid Profile 12/15/2019 [facility] Triglycerides 116 mg/dL 3 (Trig/Chol/HDL) [address] [place] [address] [phone] Cholesterol 176 mg/dL 4 HDL Cholesterol 57.9 mg/dL 5 LDL Cholesterol 95 mg/dL 6 Laboratory test 12/15/2019 [facility] Creatine 133 U/L Normal 10-[address] Kinase(CK) [place] [address] [phone] Comp Metabolic 12/15/2019 [facility] Sodium 137 Normal 135- [address] mmol/[place] [address] [phone] Potassium 4.5 mmol/L Normal 3.5-5.0 Chloride 102 [...] Egfr Non- 111.5 >60 Egfr 134.9 >60 7 Laboratory test 12/15/2019 [facility] Phosphorus 3.7 mg/dL Normal 2.5-5.[address] [place] [address] [phone] Magnesium 1.7 mg/dL Low 1.9-2.7 [place] < 0.10 mmol/L Low 0.6-1.2 HCG < 0.60 mIU/mL 8 Vitamin B12 485 pg/mL Normal 180-914 9 1 Please note: The following may produce [...] immediately to secondary confirmatory testing. Using the [employer] Card Access Immunoassay systems, the 99th percentile upper reference limit was demonstrated to be < 0.03 ng/mL. 3 Desirable: <150 Borderline High: 150-199 High: 200-499 Very High: >500 4 Desirable: <200 Borderline High: 200-239 High: >239 5 Low: <40 Desirable: 40-60 High: >60 6 Desirable: <100 Near Optimal: 100-129 Borderline High: 130-159 High: 160-189 Very High: >189 7 Because ethnic data is not always readily [...] 15-29 5 Kidney failure <15 (or dialysis) 8 <5.0 Negative 5.0 - 25.0 Indeterminate (Repeat testing recommended after 72 hours) >25.0 Positive Perimenopausal women can display HCG levels of up to 20 mIU/mL 9 Normal Range 180 to 914 Indeterminate Range 145 to 180 Deficient Range <145 Procedures Date Code Description Status 12/13/2019 93137 EKG Tracing & Interpretation Completed 12/07/2019 31760 ECHO Transthoracic, Real-Time 2D With Doppler And Color Completed Flow 12/07/2019 13839 ECHO Transthoracic, Real-Time 2D With Doppler And Color Completed Flow 11/10/2019 04033 EEG Recording Awake & Asleep Completed Medical Devices Description No Information Available Encounters Type Date Location Provider Dx Diagnosis Office Visit 12/13/2019 [facility] Jose Perez R55 Syncope and 10:20a Pj Scruggs collapse E10.65 Type 1 diabetes mellitus with hyperglycemia Z79.4 continuous churn buttermaker (current) use of insulin F31.31 Bipolar disorder, current episode depressed, mild R07.89 Other chest pain E83.39 Other disorders of phosphorus metabolism E83.42 Hypomagnesemia E66.9 Obesity, unspecified Office Visit 11/10/2019 [facility] 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 Office Visit 10/10/2019 [facility] Ismael E10.65 Type 1 diabetes 3:40p [facility] MD Roberto mellitus with hyperglycemia Z79.4 continuous churn buttermaker (current) use of insulin F31.31 Bipolar disorder, current episode depressed, mild Office Visit 09/26/2019 [facility] and Yogesh Mejia, E10.65 Type 1 diabetes 9:20a Endocrinology of MD mellitus with Aircraft Skin Burnisher hyperglycemia Z79.4 continuous churn buttermaker (current) use of insulin F53.0 depression Office Visit 09/12/2019 [facility] Yuliya and Nadine Umaña, E10.9 Type 1 diabetes 11:00a Endocrinology of [employer]-Cde mellitus without [employer]isher complications Office Visit 08/09/2019 [facility] Ismael Mejia, E10.9 Type 1 diabetes 3:13p Endocrinology of mellitus without [employer]isher complications Assessments Date Code Description Provider 12/13/2019 R55 Syncope and collapse Jose Scruggs M.D. 12/13/2019 E10.65 Type 1 diabetes mellitus with Jose Scruggs M.D. hyperglycemia 12/13/2019 Z79.4 shelter (current) use of insulin Jose Scruggs M.D. 12/13/2019 F31.31 Bipolar disorder, current episode Jose Scruggs M.D. depressed, mild 12/13/2019 R07.89 Chest discomfort Jose Scruggs M.D. 12/13/2019 E83.39 Hypophosphatemia Jose Scruggs M.D. 12/13/2019 E83.42 Hypomagnesemia Jose Scruggs M.D. 12/13/2019 E66.9 Obesity, unspecified Jose Scruggs M.D. 12/07/2019 R55 Syncope and collapse Jose Scruggs M.D. 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 10/10/2019 E10.65 Type 1 diabetes mellitus with Yogesh Mejia MD hyperglycemia 10/10/2019 Z79.4 continuous churn buttermaker (current) use of insulin Yogesh Mejia MD 10/10/2019 F31.31 Bipolar disorder, current episode Yogesh Mejia MD depressed, mild 09/26/2019 E10.65 Type 1 diabetes mellitus with Yogesh Mejia MD hyperglycemia 09/26/2019 Z79.4 continuous churn buttermaker (current) use of insulin Yogesh Mejia MD 09/26/2019 F53.0 depression Yogesh Mejia MD 09/12/2019 E10.9 Type 1 diabetes mellitus without Nadine Umaña, [employer] SERVICEPERSON-Cde complications 08/09/2019 E10.9 Type 1 diabetes mellitus without Yogesh Mejia MD complications 08/08/2019 O24.019 Pre-existing type 1 diabetes mellitus, in Abi Aguilera D.O. , unspecified trimester Plan of Treatment Future Appointment(s):01/18/2020 11:00 am - [place] [facility] Schedule at [facility]01/18/2020 11:30 am - Jose Scruggs M.D. at [facility] - Jose Scruggs M.D.R55 Syncope and ochpwosaV46.65 Type 1 diabetes mellitus with yxtrrsrejtvcsE96.4 shelter (current) use of osfohfmZ09.31 Bipolar disorder, current episode depressed, mildR07.89 Chest discomfortNew Orders:Stress Test, Exercise Echocardiogram, Scheduled: E83.39 ZaqhotunvoyejlguK56.42 PnuljbtummfnzpD53.9 Obesity, unspecified Functional Status Description No Information Available Mental Status Description No Information Available Referrals Description No Information Available
[2020-01-24 13:49] VITALS: BP 121/45
--- NOTE | 2020-01-24 14:15 | UC ---
Abdominal Pain Female HPI - HPI Summary HPI Summary: Pt presents with c/o sudden onset of RLQ pain that began this morning. Pt has had a BM is morning. Denies fever, or UTI like symptoms. - History of Current Complaint Chief Complaint: UCAbdominalPain Stated Complaint: RIGHT LOWER ABD PAIN Time Seen by Provider: 01/24/20 14:10 Hx Obtained From: Patient Hx Last Menstrual Period: ~November "Really irregular after my baby." ?: No Onset/Duration: Sudden Onset, Lasting Days, Still Present Timing: Constant Severity Initially: Mild Severity Currently: Moderate Pain Intensity: 4 Location: Discrete At: RUQ Radiates: No Character: Dull, Sharp Aggravating Factor(s): Movement Alleviating Factor(s): Nothing Associated Signs and Symptoms: Positive: Negative - Risk Factors Ectopic Risk Factor: Negative Ovarian Torsion Risk Factor: Reproductive Age Allergies/Adverse Reactions: Allergies Allergy/AdvReac Type Severity Reaction Status Date / Time lorazepam [From Ativan] Allergy Unknown Verified 01/24/20 13:42 Reaction Details morphine Allergy See Comment Verified 01/24/20 13:42 Home Medications: Home Medications Insulin Lispro [Admelog 100 units/ml 10 ml VIAL] 0 unit SQ DAILY 10/06/19 [ History Confirmed 01/24/20] [place] Carbonate TAB* 300 mg PO TID 11/10/19 [History Confirmed 01/24/20] Cholecalciferol (Vitamin D3) [Vitamin D3] 125 mcg PO DAILY 12/12/19 [History Confirmed 01/24/20] Magnesium Oxide TAB* [MagOx 400 TAB*] 800 mg PO DAILY 12/12/19 [History Confirmed 01/24/20] Mv, Min 59/Iron/Folic/Docusate [Thrivite 19 29-1 mg] 1 tab PO DAILY 12/12/19 [ History Confirmed 01/24/20] PMH/Surg Hx/FS Hx/Imm Hx Previously Healthy: Yes Other History Of: Negative For: Anticoagulant Therapy - Surgical History Surgical History: Yes Surgery Procedure, Year, and Place: C-Sections, 2018 1019, [place]; T&A, 2008, [place]; [place] Teeth, Abscesses - Family History Known Family History: Positive: Hypertension, Other - depression, Non- Contributory - Social History Occupation: Employed Full-time Lives: With Family Alcohol Use: None Alcohol Amount: varies Substance Use Type: Marijuana Substance Use Comment - Amount & Last Used: Occasionally Smoking Status (MU): Heavy Every Day Tobacco Smoker Type: Cigarettes Amount Used/How Often: 1/2 PPD Length of Time of Smoking/Using Tobacco: Since Age 13 Have You Smoked in the Last Year: Yes When Did the Patient Quit Smoking/Using Tobacco: NOVEMBER 2015 Household Exposure Type: Cigarettes - Immunization History Most Recent Influenza Vaccination: NOT IN THE LAST FEW YEARS Most Recent Tetanus Shot: UTD Most Recent Pneumonia Vaccination: never Vaccination Up to Date: Yes Review of Systems All Other Systems Reviewed And Are Negative: Yes Constitutional: Positive: Negative Skin: Positive: Negative Eyes: Positive: Negative ENT: Positive: Negative Respiratory: Positive: Negative Cardiovascular: Positive: Negative Gastrointestinal: Positive: Abdominal Pain Genitourinary: Positive: Negative Motor: Positive: Negative Neurovascular: Positive: Negative Musculoskeletal: Positive: Negative Neurological/Mental Status: Positive: Negative Psychological: Positive: Negative Is Patient Immunocompromised?: No Physical Exam Triage Information Reviewed: Yes Appearance: Ill-Appearing, Pain Distress Vital Signs: Initial Vital Signs Temp 98.7 F 01/24/20 13:36 Pulse 100 01/24/20 13:36 Resp 18 01/24/20 13:36 BP 121/45 01/24/20 13:36 Pulse Ox 100 01/24/20 13:36 Vital Signs Reviewed: Yes Eye Exam: Normal ENT Exam: Normal ENT: Positive: Hearing grossly normal Dental Exam: Normal Neck exam: Normal Respiratory Exam: Normal Cardiovascular Exam: Normal Cardiovascular: Positive: Tachycardia Abdomen Description: Positive: Other: - RLQ pain Bowel Sounds: Positive: Present Musculoskeletal Exam: Normal Neurological Exam: Normal Psychological Exam: Normal Skin Exam: Normal Abd Pain Female Course/Dx - Differential Dx/Diagnosis Differential Diagnosis: Ectopic , Urinary Tract Infection Provider Diagnosis: Right lower quadrant abdominal pain Discharge ED - Sign-Out/Discharge Documenting (check all that apply): Patient Departure All imaging exams completed and their final reports reviewed: No Studies - Discharge Plan Condition: Stable Disposition: HOME-RECOMMEND TO ED Patient Education Materials: Acute Abdominal Pain (ED) Referrals: Ac Espinoza DO [Primary Care Provider] - If Needed Additional Instructions: Please go directly to the closest emergency room immediately. - Billing Disposition and Condition Condition: STABLE Disposition: Home-Recommend to ED
== END 2020-01-24 14:38 | disposition home health service (06) ==
LOC: UCCORT 13:31
DX: R10.31 Right lower quadrant pain (principal); F17.210 Nicotine dependence, cigarettes, uncomplicated; Z88.5 Allergy status to narcotic agent
CPT/HCPCS: 81003; 84702; 99212; G0463

== ENCOUNTER 2020-01-30 11:06 | Emergency (ER) | payer OTHER ==
--- NOTE | 2020-01-30 11:34 | ED ---
Complex/Multi-Sys Presentation - HPI Summary HPI Summary: 19 year old F presenting to [facility] with a chief complaint of right foot pain since 2 weeks ago. She is unable to put pressure on her foot. There is no drainage. She was seen today at a clinic and was sent to the emergency department because she had a fever of 101 degrees, a cough, nasal congestion, and a sore throat. She has a history of diabetes and MRSA infections. The patient reports travelling to [facility], and [place] recently. She has no known contacts with anyone being tested for COVID-19. She lives at home with her boyfriend who feels more sick than she does, and two children under the age of 5 in a 3 bedroom 1 bath house. Medication list reviewed. Allergy list reviewed. Home Medications Medication Instructions Recorded Confirmed Type Insulin Lispro [Admelog 100 0 unit SQ DAILY 10/06/19 01/24/20 History units/ml 10 ml VIAL] [place] Carbonate TAB* 300 mg PO TID 11/10/19 01/24/20 History Cholecalciferol (Vitamin D3) 125 mcg PO DAILY 12/12/19 01/24/20 History [Vitamin D3] Magnesium Oxide TAB* [MagOx 400 800 mg PO DAILY 12/12/19 01/24/20 History TAB*] Mv, Min 59/Iron/Folic/Docusate 1 tab PO DAILY 12/12/19 01/24/20 History [Thrivite 19 29-1 mg] DOXYcycline CAP(*) [DOXYcycline 100 mg PO BID 7 Days #14 cap 01/30/20 Rx 100MG CAP(*)] - History Of Current Complaint Chief Complaint: EDFluSymptoms Time Seen by Provider: 01/30/20 11:10 Hx Obtained From: Patient Onset/Duration: Lasting Weeks, Still Present Timing: Constant Aggravating Factor(s): Pressure Associated Signs And Symptoms: Positive: Cough, Fever, Other - Congestion, sore throat - Allergies/Home Medications Allergies/Adverse Reactions: Allergies Allergy/AdvReac Type Severity Reaction Status Date / Time lorazepam [From Ativan] Allergy Unknown Verified 01/24/20 13:42 Reaction Details morphine Allergy See Comment Verified 01/24/20 13:42 Home Medications: Home Medications Insulin Lispro [Admelog 100 units/ml 10 ml VIAL] 0 unit SQ DAILY 10/06/19 [ History Confirmed 01/24/20] [place] Carbonate TAB* 300 mg PO TID 11/10/19 [History Confirmed 01/24/20] Cholecalciferol (Vitamin D3) [Vitamin D3] 125 mcg PO DAILY 12/12/19 [History Confirmed 01/24/20] Magnesium Oxide TAB* [MagOx 400 TAB*] 800 mg PO DAILY 12/12/19 [History Confirmed 01/24/20] Mv, Min 59/Iron/Folic/Docusate [Thrivite 19 29-1 mg] 1 tab PO DAILY 12/12/19 [ History Confirmed 01/24/20] DOXYcycline CAP(*) [DOXYcycline 100MG CAP(*)] 100 mg PO BID 7 Days #14 cap 01/29 [Rx] PMH/Surg Hx/FS Hx/Imm Hx Endocrine/Hematology History: Reports: Hx Diabetes Denies: Hx Anticoagulant Therapy, Hx Blood Disorders, Hx Blood Transfusions, Hx Bone Marrow Disease, Hx Systemic Lupus Erythematosus, Hx Sickle Cell Disease , Hx Thyroid Disease, Hx Anemia, Hx Unexplained Bleeding, Other Endocrine/ Hematological Disorders Cardiovascular History: Denies: Hx Hypertension, Hx Pacemaker/ICD Respiratory History: Reports: Hx Pneumonia - couple years ago Denies: Hx Asthma, Hx Chronic Obstructive Pulmonary Disease (COPD) GI History: Denies: Hx Ulcer History: Denies: Hx Dialysis, Hx Kidney Stones, Hx Renal Disease Sensory History: Denies: Hx Contacts or Glasses, Hx Legally Blind, Hx Deafness, Hx Hearing Aid Opthamlomology History: Denies: Hx Contacts or Glasses, Hx Legally Blind Neurological History: Denies: Hx Dementia, Hx Seizures Psychiatric History: Reports: Hx Anxiety, Hx Depression, Hx Panic Disorder, Hx Inpatient Treatment, Hx Community Mental Health Tx, Hx Suicide Attempt, Hx of Violent Episodes Against Others, Hx Substance Abuse, Other Psychiatric Issues/ Disorders Denies: Hx Eating Disorder - Surgical History Surgery Procedure, Year, and Place: C-Sections, 2018 1019, [place]; T&A, 2008, [place]; [place] Teeth, Abscesses Hx Anesthesia Reactions: No - Immunization History Date of Tetanus Vaccine: UNK Date of Influenza Vaccine: UNK Infectious Disease History: Reports: Hx of Known/Suspected MRSA - "I had it spread throughout [body]." Denies: Hx Clostridium Difficile, Hx Hepatitis, Hx Human Immunodeficiency Virus (HIV), Hx Shingles, Hx Tuberculosis, Hx Known/Suspected VRE, Hx Known/ Suspected VRSA, History Other Infectious Disease - Family History Known Family History: Positive: Hypertension, Other - depression - Social History Alcohol Use: None Alcohol Amount: varies Hx Substance Use: Yes Substance Use Type: Reports: Marijuana Substance Use Comment - Amount & Last Used: Occasionally Hx Tobacco Use: Yes Smoking Status (MU): Heavy Every Day Tobacco Smoker Type: Cigarettes Amount Used/How Often: 1/2 PPD Length of Time of Smoking/Using Tobacco: Since Age 13 Have You Smoked in the Last Year: Yes Review of Systems Positive: Fever Positive: Sore Throat, Other - Nasal congestion Positive: Cough Positive: Other - Right foot pain All Other Systems Reviewed And Are Negative: Yes Physical Exam - Summary Physical Exam Summary: Constitutional: Well-developed, Well-nourished, Alert. (-) Distressed, speaking in full sentences, sitting comfortably in bed. Skin: Warm, Dry HENT: Normocephalic; Atraumatic Eyes: Conjunctiva normal Neck: Musculoskeletal ROM normal neck. (-) JVD, (-) Stridor, (-) Tracheal deviation Cardio: Rhythm regular, rate normal, Heart sounds normal; Intact distal pulses; Radial pulses are 2+ and symmetric. (-) Murmur Pulmonary/Chest wall: Effort normal. (-) Respiratory distress, (-) Wheezes, (-) Rales Abd: Soft, (-) tenderness, (-) Distension, (-) Guarding, (-) Rebound Musculoskeletal: (-) Edema, right foot has an area of thickened skin, very tender on the plantar surface; no erythema, no fluctuance or induration. Lymph: (-) Cervical adenopathy Neuro: Alert, Oriented x3 Psych: Mood and affect Normal Triage Information Reviewed: Yes Vital Signs Reviewed: Yes Procedures - Sedation Patient Received Moderate/Deep Sedation with Procedure: No Complex Multi-Symp Course/Dx Course Of Treatment: Patient is here with right foot pain. Patient has diabetes. Patient has obvious erythema can skin on her foot that is very tender to palpation. Patient has no erythema, fluctuance, induration. However , patient's very high risk given her point controlled diabetes and was started on antibiotics. In addition, patient's had fever and cough. Patient is overall well-appearing for rest were status. Given patient's comorbid conditions, living with 2 very young children, patient will be tested for covid 19 - Diagnoses Provider Diagnoses: Foot infection, Fever, Cough, Runny nose, Diabetes Discharge ED - Sign-Out/Discharge Documenting (check all that apply): Patient Departure - Discharge Plan Condition: Stable Disposition: HOME Prescriptions: DOXYcycline CAP(*) [DOXYcycline 100MG CAP(*)] 100 mg PO BID 7 Days #14 cap Patient Education Materials: Cellulitis (ED), Upper Respiratory Infection (ED) Referrals: Ac Espinoza DO [Primary Care Provider] - Additional Instructions: Take your antibiotics as prescribed. Return to the emergency department if you have pus coming from your foot or if your foot is getting more red. Call 911 if you have severe trouble breathing or you feel that you need to be hospitalized for your breathing. Do your best to clean and quarantine at home. - Billing Disposition and Condition Condition: STABLE Disposition: Home - Attestation Statements Document Initiated by Jian: Yes Documenting Scribe: Shila José Provider For Whom Jian is Documenting (Include Credential): Roby Dia MD Scribe Attestation: Shila Merritt scribed for Roby Dia MD on 01/30/20 at 2134. Scribe Documentation Reviewed: Yes Provider Attestation: The documentation as recorded by the Shila castro accurately reflects the service I personally performed and the decisions made by , Roby Dia MD Status of Scribe Document: Viewed
--- OUTSIDE RECORDS SUMMARY | 2020-01-30 12:00 | XMS REPORT | Continuity of Care Document ---
:2000 External Reference #:[id number] Author Name Jose Scruggs M.D. (transmitted by agent of provider Yasmin Villar) Address [address] [place] [id number] Care Team Providers Name Role Phone Ac Espinoza DO - Family Care Team Information Behaviorist Medicine Problems Active Problems Provider Date Ketoacidosis [...] insulin 10units E10.65 Yogesh Mejia MD 10/10/2019 [place] 3ML pump every 3 days Res 3ML Misc Guardian Link 3 use with guardian 1units E10.65 Yogesh Mejia MD 10/10/2019 Transmitter sensors Link 3 Misc Freestyle Lite use to check your 1units E10.9 Nadine Umaña, 09/12/2019 Blood Glucose glucose 4 x/day [employer] Monitoring System Device Freestyle Precision test sugar as 75units E10.9 Nadine Umaña, 09/12/2019 [place] Blood Glucose needed at least [employer] OPER[employer]-Cde Test Strips 4x/day Strips Freestyle Unistick Use 4x/day 100units E10.9 Nadine Fabiankins, 09/12/2019 II Lancets [employer]-Cde Misc Freestyle Lite Test test blood sugar 4 200units E10.9 Nadine Fabiankins, 09/12 times daily and as [employer] OPER[employer]-Cde Strips needed Contour Next Link use to check blood 1units Yogesh Mejia MD 02/17/2019 Wireless Blood 6-8 times daily. Glucose Monitoring for use with Mindscore 670g w/Device Kit insulin pump. Contour Next [...] (5000 Ut) Capsules seven capsules once weekly [place] Carbonate 1 capsule by mouth Unknown 3 times a day for 300mg Capsules manic-depression Thrivite 19 1 tablet by mouth Unknown 29-1mg once daily Tablets History Medications Admelog per day as 20ml Yogesh Mejia MD 09/26/2019 - 100Unit/ML directed in 10/04/2019 Solution insulin pump MDD 40 units daily Humalog Kwikpen 1:8 carb ratio, 30ml E10.9 Nadine Fabiankins, 08/30/2019 - use with meals and [employer] OPER[employer]-Cde 09/26/2019 100Unit/ML Solution snacks MDD 40 Pen-Inject [...] Result H/L Range Note Date Laboratory 01/03/2020 [facility] D Dimer < 200 Normal Less Than 1 test finding [address] Quantitative ng/mL [address] [place] [address] [phone] Troponin-I (TnI) 0.00 ng/mL <0.03 2 Lipid Panel - 01/03/2020 [facility] Creatine 71 U/L Normal 10- [address] Kinase(CK) [place] [address] [phone] Comp Metabolic 01/03/2020 [facility] Sodium 136 Normal 135- [address] mmol/[place] [address] [phone] Potassium 4.3 mmol/L Normal 3.5-5.0 Chloride 103 [...] Egfr 142.1 >60 3 Lipid Profile 01/03/2020 [facility] Triglycerides 118 mg/dL 4 (Trig/Chol/HDL) [address] [place] [address] [phone] Cholesterol 170 mg/dL 5 HDL Cholesterol 46.9 mg/dL 6 LDL Cholesterol 100 mg/dL 7 Laboratory test 01/03/2020 [facility] Phosphorus 4.2 mg/dL Normal 2.5-5.[address] [place] [address] [phone] Magnesium 1.9 mg/dL Normal 1.9-2.7 [place] 0.84 mmol/L Normal 0.6-1.2 Laboratory 12/15/2019 [facility] D Dimer < 200 Normal Less [address] Quantitative ng/mL Than [address] [place] [address] [phone] CBC Auto Diff 12/15/2019 [facility] White Blood 11.2 High 3.5- 10.[address] Count 10^3/[place] [address] [phone] Red Blood Count 4.76 10^6/uL Normal 3.70-4.87 [...] Blood Cells % 0.1 Laboratory test 12/15/2019 [facility] Troponin-I (TnI) 0.01 ng/ mL <0.[address] [place] [address] [phone] Lipid Profile 12/15/2019 [facility] Triglycerides 116 mg/dL 10 (Trig/Chol/HDL) [address] [place] [address] [phone] Cholesterol 176 mg/dL 11 HDL Cholesterol 57.9 mg/dL 12 LDL Cholesterol 95 mg/dL 13 Laboratory test 12/15/2019 [facility] Creatine 133 U/L Normal 10-223 finding 101 [facility] Kinase(CK) [place] [address] [phone] Comp Metabolic 12/15/2019 [facility] Sodium 137 Normal 135- [address] mmol/[place] [address] [phone] Potassium 4.5 mmol/L Normal 3.5-5.0 Chloride 102 [...] Egfr 134.9 >60 14 Laboratory test 12/15/2019 [facility] Phosphorus 3.7 mg/dL Normal 2.5-5.0 finding [address] [place] [address] [phone] Magnesium 1.7 mg/dL Low 1.9-2.7 [place] < 0.10 mmol/L Low 0.6-1.2 HCG < [...] immediately to secondary confirmatory testing. Using the [employer] 800 Access Immunoassay systems, the 99th percentile [...] immediately to secondary confirmatory testing. Using the [employer] [place] Access Immunoassay systems, the 99th percentile upper [...] <145 Procedures Date Code Description Status 01/18/2020 02183 ECHO Stress Test Incl Perf Contiuous ekg Monitoring W/Phys Completed Superv 01/18/2020 43456 ECHO Stress Test Incl Perf Contiuous ekg Monitoring W/Phys Completed Superv 12/13/2019 12109 EKG Tracing & Interpretation Completed 12/07/2019 64662 Mobile Cardiovascular Telemetry Over 24 HR Up To 30 Days Completed 12/07/2019 35205 ECHO Transthoracic, Real-Time 2D With Doppler And Color Completed Flow 12/07/2019 75029 ECHO Transthoracic, Real-Time 2D With Doppler And Color Completed Flow 11/10/2019 61807 EEG Recording Awake & Asleep Completed Medical Devices Description No Information Available Encounters Type Date Location Provider Dx Diagnosis Office Visit 12/13/2019 [facility] Jose Perez R55 Syncope and 10:20a Pj Scruggs collapse E10.65 Type 1 diabetes mellitus with hyperglycemia 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.4 terminal 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 F31.31 Bipolar disorder, current episode depressed, mild R07.89 Other chest pain E83.39 Other disorders of phosphorus metabolism E83.42 Hypomagnesemia E66.9 Obesity, unspecified Office Visit 11/10/2019 [facility] 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 Office Visit 10/10/2019 [facility] natalie Zuñiga E10.65 Type 1 diabetes 3:40p [facility] MD Roberto mellitus with hyperglycemia Z79.4 prison (current) use of insulin F31.31 Bipolar disorder, current episode depressed, mild Office Visit 09/26/2019 [facility] and Yogesh Mejia, E10.65 Type 1 diabetes 9:20a [facility] of MD mellitus with [place] hyperglycemia Z79.4 prison (current) use of insulin F53.0 depression Office Visit 09/12/2019 [facility] and Nadine Umaña, E10.9 Type 1 diabetes 11:00a Endocrinology of [employer]Cde mellitus without [place] complications Office Visit 08/09/2019 [facility] Herman Mejia, E10.9 Type 1 diabetes 3:13p Endocrinology of mellitus without [place] complications Assessments Date Code Description Provider 01/18/2020 R07.9 Chest pain, unspecified Jose Scruggs M.D. 01/18/2020 E10.65 Type 1 diabetes mellitus with [place] [facility] Schedule hyperglycemia 01/18/2020 R06.00 Dyspnea, unspecified [place] [facility] Schedule 01/18/2020 R07.89 Other chest pain [place] ECHO Schedule 01/18/2020 R55 Syncope and collapse [facility] Schedule 12/13/2019 R55 Syncope and collapse Jose Scruggs M.D. 12/13/2019 E10.65 Type 1 diabetes mellitus with Jose Scruggs M.D. hyperglycemia 12/13/2019 Z79.4 prison (current) use of insulin Jose Scruggs M.D. [...] Jose Scruggs M.D. 12/07/2019 R00.0 Tachycardia, unspecified Joes Scruggs M.D. 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 , unspecified trimester Plan of Treatment No Information Available Functional Status Description No Information Available Mental Status Description No Information Available Referrals Description No Information Available
[2020-01-30 12:04] VITALS: BP 00/0
== END 2020-01-30 12:00 | disposition home or self-care (01) ==
LOC: ED 11:06
DX: L08.9 Local infection of the skin and subcutaneous tissue, unspecified (principal); R05 Cough; R50.9 Fever, unspecified; M79.671 Pain in right foot; E11.8 Type 2 diabetes mellitus with unspecified complications; J02.9 Acute pharyngitis, unspecified; R09.81 Nasal congestion; F17.210 Nicotine dependence, cigarettes, uncomplicated; F41.9 Anxiety disorder, unspecified; Z79.4 Long term (current) use of insulin; Z88.6 Allergy status to analgesic agent; Z20.828 Contact with and (suspected) exposure to other viral communicable diseases
CPT/HCPCS: 99282; U0002

== ENCOUNTER 2020-02-07 19:26 | Emergency (ER) | payer OTHER ==
[2020-02-07] MEDS ORDERED: NS 0.9% 1000 ML** 2,000 ML IV ONE (19:43)
--- NOTE | 2020-02-07 19:45 | ED ---
HPI Diabetic - HPI Summary HPI Summary: 19 year old female presents with ketones in her urine and high sugars for the past 2 days. States she's had some dysuria and urgency. She has had some lower abdominal pain. She has a history of DKA. She states that she has been using her insulin but her sugars will not come down. She denies any nausea vomiting. States that she was tested for covid many days ago but the results have not come back yet. She had a fever and sore throat at that time that has resolved. She was placed on doxycycline at her last visit for a potential cellulitis of her foot. States that has gotten but is not currently on the doxycycline. She denies any fevers. No flank pain. she also states her period is late but she took an at home test and it was negative. - History Of Current Complaint Time Seen by Provider: 02/07/20 19:36 Hx Last Menstrual Period: ~November "Really irregular after my baby." - Allergies/Home Medications Allergies/Adverse Reactions: Allergies Allergy/AdvReac Type Severity Reaction Status Date / Time lorazepam [From Ativan] Allergy Unknown Verified 01/24/20 13:42 Reaction Details morphine Allergy See Comment Verified 01/24/20 13:42 Home Medications: Home Medications Insulin Lispro [Admelog 100 units/ml 10 ml VIAL] 0 unit SQ DAILY 10/06/19 [ History Confirmed 02/07/20] [address] Carbonate TAB* 300 mg PO TID 11/10/19 [History Confirmed 02/07/20] Cholecalciferol (Vitamin D3) [Vitamin D3] 125 mcg PO DAILY 12/12/19 [History Confirmed 02/07/20] Magnesium Oxide TAB* [MagOx 400 TAB*] 800 mg PO DAILY 12/12/19 [History Confirmed 02/07/20] Mv, Min 59/Iron/Folic/Docusate [Thrivite 19 29-1 mg] 1 tab PO DAILY 12/12/19 [ History Confirmed 02/07/20] Amoxicillin/Clavulanate TAB* [Augmentin TAB 500 mg*] 500 mg PO BID #10 tab 02/06 [Rx] PMH/Surg Hx/FS Hx/Imm Hx Endocrine/Hematology History: Reports: Hx Diabetes Denies: Hx Anticoagulant Therapy, Hx Blood Disorders, Hx Blood Transfusions, Hx Bone Marrow Disease, Hx Systemic Lupus Erythematosus, Hx Sickle Cell Disease , Hx Thyroid Disease, Hx Anemia, Hx Unexplained Bleeding, Other Endocrine/ Hematological Disorders Cardiovascular History: Denies: Hx Hypertension, Hx Pacemaker/ICD Respiratory History: Reports: Hx Pneumonia - couple years ago Denies: Hx Asthma, Hx Chronic Obstructive Pulmonary Disease (COPD) GI History: Denies: Hx Ulcer History: Denies: Hx Dialysis, Hx Kidney Stones, Hx Renal Disease Sensory History: Denies: Hx Contacts or Glasses, Hx Legally Blind, Hx Deafness, Hx Hearing Aid Opthamlomology History: Denies: Hx Contacts or Glasses, Hx Legally Blind Neurological History: Denies: Hx Dementia, Hx Seizures Psychiatric History: Reports: Hx Anxiety, Hx Depression, Hx Panic Disorder, Hx Inpatient Treatment, Hx Community Mental Health Tx, Hx Suicide Attempt, Hx of Violent Episodes Against Others, Hx Substance Abuse, Other Psychiatric Issues/ Disorders Denies: Hx Eating Disorder - Surgical History Surgery Procedure, Year, and Place: C-Sections, 2018 1019, [place]; T[place]A, 2008, [place]; [place] Teeth, Abscesses Hx Anesthesia Reactions: No - Immunization History Date of Tetanus Vaccine: UNK Date of Influenza Vaccine: UNK Infectious Disease History: Reports: Hx of Known/Suspected MRSA - "I had it spread throughout [body]." Denies: Hx Clostridium Difficile, Hx Hepatitis, Hx Human Immunodeficiency Virus (HIV), Hx Shingles, Hx Tuberculosis, Hx Known/Suspected VRE, Hx Known/ Suspected VRSA, History Other Infectious Disease - Family History Known Family History: Positive: Hypertension, Other - depression, Non- Contributory - Social History Alcohol Use: None Alcohol Amount: varies Hx Substance Use: Yes Substance Use Type: Reports: Marijuana Substance Use Comment - Amount & Last Used: Occasionally Hx Tobacco Use: Yes Smoking Status (MU): Heavy Every Day Tobacco Smoker Type: Cigarettes Amount Used/How Often: 1/2 PPD Length of Time of Smoking/Using Tobacco: Since Age 13 Have You Smoked in the Last Year: Yes Review of Systems Negative: Fever Negative: Chest Pain Negative: Shortness Of Breath Positive: Abdominal Pain Positive: dysuria All Other Systems Reviewed And Are Negative: Yes Physical Exam Triage Information Reviewed: Yes Vital Signs Reviewed: Yes Appearance: Positive: Well-Appearing Skin: Positive: Warm, Dry Head/Face: Positive: Normal Head/Face Inspection Eyes: Positive: Normal, Conjunctiva Clear Respiratory/Lung Sounds: Positive: Breath Sounds Present Cardiovascular: Positive: Normal, RRR Abdomen Description: Positive: Soft, Other: - tenderness suprapubic Bowel Sounds: Positive: Present Musculoskeletal: Positive: Normal Neurological: Positive: Normal Psychiatric: Positive: Normal Procedures - Sedation Patient Received Moderate/Deep Sedation with Procedure: No Diagnostics - Laboratory Result Diagrams: 02/07/20 20:32 02/07/20 20:32 Lab Statement: Any lab studies that have been ordered have been reviewed, and results considered in the medical decision making process. Re-Evaluation - Re-Evaluation First Eval Re-Evaluation Time: 23:34 Comment: sugar is 437. pain improved. Diabetic Course/Dx - Course Course Of Treatment: 19 year old female presents with ketones in her urine and high sugars for the past 2 days. States she's had some dysuria and urgency. She has had some lower abdominal pain. She has a history of DKA. She states that she has been using her insulin but her sugars will not come down. She denies any nausea vomiting. States that she was tested for covid many days ago but the results have not come back yet. She had a fever and sore throat at that time that has resolved. She was placed on doxycycline at her last visit for a potential cellulitis of her foot. States that has gotten but is not currently on the doxycycline. She denies any fevers. No flank pain. she also states her period is late but she took an at home test and it was negative. On exam tenderness suprapubic. wbc normal. glucose is 627. ph normal. anion gap normal. will give insulin and recheck. urine potential uti so gave rocephin. repeat sugar 437. repeat sugar 385. told needs to increase insulin. will place on augmentin. patient is still pending covid test. patient understand and agrees with plan. - Diagnoses Differential Dx: Diabetic Ketoacidosis, Hyperglycemia, Hyperosmolar State Provider Diagnoses: Hyperglycemia, UTI (urinary tract infection) Discharge ED - Sign-Out/Discharge Documenting (check all that apply): Patient Departure - Discharge Plan Condition: Good Disposition: HOME Prescriptions: Amoxicillin/Clavulanate TAB* [Augmentin TAB 500 mg*] 500 mg PO BID #10 tab Patient Education Materials: Urinary Tract Infection in Women (ED), Diabetic Hyperglycemia (ED) Referrals: Ac Espinoza DO [Primary Care Provider] - Additional Instructions: continue quarantine in house until told otherwise take Augmentin twice a day for 5 days check sugar more frequently and adjust insulin as needed drink plenty of fluids Return to ED if develop any new or worsening symptoms - Billing Disposition and Condition Condition: GOOD Disposition: Home
[2020-02-07 20:45] LABS: ABS Basophils 0.1 10^3/ul (0-0.2); ABS Eosinophils 0.1 10^3/ul (0-0.6); ABS Lymphocytes 2.4 10^3/ul (1.0-4.8); ABS Monocytes 0.6 10^3/ul (0-0.8); ABS Neutrophils 6.2 10^3/ul (1.5-7.7); Eosinophil % 1.3 %; Hematocrit 40 % (35-47); Hemoglobin 14.3 g/dL (12.0-16.0); Lymphocyte % 25.5 %; Mean Corpuscular HGB Conc 36 g/dL (31-36); Mean Corpuscular Hemoglobin 30 pg (27-31); Mean Corpuscular Volume 84 fL (80-97); Mean Platelet Volume 9.8 fL (7.4-10.4); Nucleated Red Blood Cells % 0.1; Platelet Count 254 10^3/uL (150-450); Red Blood Count 4.71 10^6 /uL (3.70-4.87); Red Cell Distribution Width 13 % (10-15); White Blood Count 9.4 10^3/uL (3.5-10.8)
[2020-02-07 21:02] LABS: ALT 17 U/L (7-52); AST 13 U/L (13-39); Albumin/Globulin Ratio 1.5 (1-3); Alkaline Phosphatase 88 U/L (34-104); Anion Gap 10 mmol/L (2-11); BUN/Creatinine Ratio 24.2 (8-20); Blood Urea Nitrogen 16 mg/dL (6-24); C Reactive Protein 16.38 mg/L (<8.01); CO2 Carbon Dioxide 22 mmol/L (22-32); Calcium 9.3 mg/dL (8.6-10.3); Chloride 97 mmol/L (101-111); EGFR African American 139.6 (>60); EGFR Non-African American 115.4 (>60); Globulin 2.7 g/dL (2-4); Potassium 4.4 mmol/L (3.5-5.0); Sodium 129 mmol/L (135-145); Total Protein 6.7 g/dL (6.4-8.9)
[2020-02-07 21:05] LABS: Glucose 627 mg/dL (70-100)
[2020-02-07 21:08] LABS: HCG Pregnancy < 0.60 mIU/mL
[2020-02-07] MEDS ORDERED: Insulin REGULAR(*) 1 UNITS UNIT IV PUSH ONE (21:28)
[2020-02-07] MEDS ORDERED: NS 0.9% 1000 ML** 1,000 ML IV ONE (21:31)
[2020-02-07] MEDS ORDERED: Insulin Infusion 100unit/100mL 100 UNIT/100 ML BAG IV SCH (22:00)
[2020-02-07 22:05] LABS: Urine Appearance Clear; Urine Bilirubin Negative (Negative); Urine Blood Negative (Negative); Urine Color Colorless; Urine Glucose 3+(>=500 mg/dL) (Negative); Urine Ketones Trace (Negative); Urine Nitrite Negative (Negative); Urine Protein Negative (Negative); Urine Specific Gravity 1.027 (1.010-1.030); Urine Urobilinogen Negative (Negative)
[2020-02-07 22:08] LABS: Urine Bacteria Absent (Absent); Urine Red Blood Cell Trace(0-2/hpf) (Absent); Urine Squamous Epithelial Cell Present (Absent); Urine White Blood Cell Trace(0-5/hpf) (Absent)
[2020-02-07] MEDS ORDERED: cefTRIAXone(*) 1 GM in NS 0.9% 50 ML* 50 ML IVPB ONE (22:10)
[2020-02-07] MEDS ORDERED: Ketorolac INJ* 30 MG/ML 1 ML VIAL IV PUSH ONE (22:10)
[2020-02-07] MEDS ORDERED: Insulin REGULAR(*) 1 UNITS UNIT SUBCUT ONE (23:11)
[2020-02-07] MEDS ORDERED: Insulin REGULAR(*) 1 UNITS UNIT ONE (23:48)
[2020-02-08 01:10] VITALS: BP 148/83
== END 2020-02-08 01:09 | disposition home or self-care (01) ==
LOC: ED 19:26
DX: E11.65 Type 2 diabetes mellitus with hyperglycemia (principal); N39.0 Urinary tract infection, site not specified; R10.30 Lower abdominal pain, unspecified; R30.0 Dysuria; F41.9 Anxiety disorder, unspecified; F32.9 Major depressive disorder, single episode, unspecified; F17.210 Nicotine dependence, cigarettes, uncomplicated; Z79.4 Long term (current) use of insulin; Z88.6 Allergy status to analgesic agent
CPT/HCPCS: 36415; 80053; 81003; 81015; 82803; 83605; 84702; 85025; 86140; 87077; 87086; 96361; 96365; 96375; 99284; J0696; J1885

== ENCOUNTER 2020-08-14 13:26 | Observation (INO) ==
[2020-08-14] MEDS ORDERED: NS 0.9% 1000 ml BAG 1,000 ML IV ONE ×2 (14:33→16:41)
[2020-08-14 15:54] LABS: Rapid Strep Molecular Negative (Negative)
[2020-08-14 15:56] LABS: ABS Eosinophils 0.1 10^3/ul (0-0.6); ABS Lymphocytes 2.3 10^3/ul (1.0-4.8); ABS Monocytes 0.5 10^3/ul (0-0.8); ABS Neutrophils 7.5 10^3/ul (1.5-7.7); Eosinophil % 0.9 %; Hematocrit 42 % (35-47); Hemoglobin 14.5 g/dL (12.0-16.0); Lymphocyte % 22.4 %; Mean Corpuscular HGB Conc 34 g/dL (31-36); Mean Corpuscular Hemoglobin 29 pg (27-31); Mean Corpuscular Volume 85 fL (80-97); Nucleated Red Blood Cells % 0.1; Platelet Count 276 10^3/uL (150-450); Red Blood Count 5.01 10^6 /uL (3.70-4.87); Red Cell Distribution Width 12 % (10-15); White Blood Count 10.4 10^3/uL (3.5-10.8)
[2020-08-14 16:00] LABS: Urine Appearance Cloudy; Urine Bilirubin Negative (Negative); Urine Blood Negative (Negative); Urine Color Straw; Urine Glucose 3+(>=500 mg/dL) (Negative); Urine Ketones 1+ (Negative); Urine Nitrite Negative (Negative); Urine Protein Negative (Negative); Urine Specific Gravity 1.027 (1.010-1.030); Urine Urobilinogen Negative (Negative)
[2020-08-14 16:00] LABS: ALT 20 U/L (7-52); AST 12 U/L (13-39); Albumin 4.5 g/dL (3.2-5.2); Albumin/Globulin Ratio 1.6 (1-3); Alkaline Phosphatase 148 U/L (34-104); Anion Gap 11 mmol/L (2-11); BUN/Creatinine Ratio 23.6 (8-20); Blood Urea Nitrogen 17 mg/dL (6-24); CO2 Carbon Dioxide 23 mmol/L (22-32); Calcium 9.4 mg/dL (8.6-10.3); Chloride 92 mmol/L (101-111); EGFR African American 126.3 (>60); EGFR Non-African American 104.3 (>60); Globulin 2.9 g/dL (2-4); Magnesium 1.7 mg/dL (1.9-2.7); Potassium 4.3 mmol/L (3.5-5.0); Sodium 126 mmol/L (135-145); Total Protein 7.4 g/dL (6.4-8.9)
[2020-08-14 16:01] LABS: Glucose 719 mg/dL (70-100); Glucose Confirmatory 719 mg/dL (70-100)
[2020-08-14 16:02] LABS: Influenza A Molecular Negative (Negative); Influenza B Molecular Negative (Negative)
[2020-08-14 16:03] LABS: HCG Pregnancy < 0.60 mIU/mL
[2020-08-14 16:05] LABS: Urine Bacteria 1+ (Absent); Urine Red Blood Cell Trace(0-2/hpf) (Absent); Urine Squamous Epithelial Cell Present (Absent); Urine White Blood Cell 2+(11-20/hpf) (Absent)
[2020-08-14] MEDS ORDERED: cefTRIAXone 1 gm/50 mL NS BAG 1 GM/50 ML BAG IV ONE (16:40)
[2020-08-14] MEDS ORDERED: Al Hydrox/Mg Hydrox/Simet LIQ 30 ML UDC PO PRN (17:40)
[2020-08-14] MEDS ORDERED: Ondansetron 4 mg VIAL 2 MG/ML 2 ml VIAL IV PRN (17:40)
[2020-08-14] MEDS ORDERED: NS 0.9% 1000 ml BAG 1,000 ML IV SCH (17:45)
[2020-08-14 17:51] LABS: Resp Syncytial Virus Molecular Negative (Negative)
[2020-08-14] MEDS ORDERED: Dextrose 50% Syringe 50 ml 25 GM/50 ML SYRINGE IV PUSH PRN (17:56)
[2020-08-14] MEDS ORDERED: Insulin GLARGINE 100 un/ml 10 ml VIAL SUBCUT SCH ×2 (18:00→21:00)
[2020-08-14] MEDS ORDERED: cefTRIAXone 1 gm/50 mL NS BAG 1 GM/50 ML BAG IVPB SCH (19:00)
[2020-08-14] MEDS: Amphetamine MIXED SALT 10mgTAB PO SCH (22:37)
[2020-08-15 06:33] LABS: ABS Basophils 0.1 10^3/ul (0-0.2); ABS Eosinophils 0.3 10^3/ul (0-0.6); ABS Lymphocytes 2.7 10^3/ul (1.0-4.8); ABS Monocytes 0.7 10^3/ul (0-0.8); ABS Neutrophils 5.1 10^3/ul (1.5-7.7); Eosinophil % 3.9 %; Hematocrit 37 % (35-47); Hemoglobin 13.2 g/dL (12.0-16.0); Lymphocyte % 30.2 %; Mean Corpuscular HGB Conc 36 g/dL (31-36); Mean Corpuscular Hemoglobin 30 pg (27-31); Mean Corpuscular Volume 83 fL (80-97); Mean Platelet Volume 8.6 fL (7.4-10.4); Nucleated Red Blood Cells % 0.1; Platelet Count 237 10^3/uL (150-450); Red Blood Count 4.47 10^6 /uL (3.70-4.87); Red Cell Distribution Width 13 % (10-15); White Blood Count 8.8 10^3/uL (3.5-10.8)
[2020-08-15 06:44] LABS: Albumin 3.7 g/dL (3.2-5.2); Albumin/Globulin Ratio 1.4 (1-3); BUN/Creatinine Ratio 25.5 (8-20); Calcium 8.6 mg/dL (8.6-10.3); EGFR African American 206.6 (>60); EGFR Non-African American 170.7 (>60); Globulin 2.6 g/dL (2-4); Potassium 3.8 mmol/L (3.5-5.0); Total Bilirubin 1.3 mg/dL (0.2-1.0); Total Protein 6.3 g/dL (6.4-8.9)
[2020-08-15] MEDS: Amphetamine MIXED SALT 10mgTAB PO SCH ×2 (08:44→14:55)
[2020-08-15] MEDS ORDERED: cefTRIAXone 1 gm/50 mL NS BAG 1 GM/50 ML BAG IVPB SCH (15:00)
[2020-08-15] MEDS: Insulin GLARGINE 100 un/ml 10 ml VIAL SUBCUT SCH ×2 (15:51→16:51)
[2020-08-15 16:38] VITALS: BP 137/67
== END 2020-08-15 17:00 | disposition home or self-care (01) ==
LOC: MED 13:26 → ED 13:26 → MED 20:05
PROVIDERS: ADMIT Student in an Organized Health Care Education/Training Program; ATTEND Internal Medicine

== ENCOUNTER 2020-12-10 16:35 | Inpatient (IN) ==
[2020-12-10] MEDS ORDERED: Ondansetron 4 mg VIAL 2 MG/ML 2 ml VIAL IV ONE (16:42)
[2020-12-10] MEDS ORDERED: NS 0.9% 1000 ml BAG 2,000 ML IV ONE (16:52)
[2020-12-10] MEDS ORDERED: HYDROmorphone 1 MG/1 ML SYRINGE IV SLOW PU ONE (16:53)
[2020-12-10 16:59] LABS: ABS Lymphocytes 2.9 10^3/ul (1.0-4.8); ABS Monocytes 0.9 10^3/ul (0-0.8); ABS Neutrophils 14.1 10^3/ul (1.5-7.7); Hematocrit 49 % (35-47); Mean Corpuscular HGB Conc 35 g/dL (31-36); Mean Corpuscular Hemoglobin 30 pg (27-31); Mean Corpuscular Volume 86 fL (80-97); Mean Platelet Volume 8.7 fL (7.4-10.4); Platelet Count 442 10^3/uL (150-450); Red Blood Count 5.71 10^6 /uL (3.70-4.87); Red Cell Distribution Width 13 % (10-15); White Blood Count 17.9 10^3/uL (3.5-10.8)
[2020-12-10 17:24] LABS: HCG Pregnancy < 0.60 mIU/mL
[2020-12-10 17:25] LABS: Activated Partial Thrombo Time 32.7 seconds (26.0-38.0); INR 0.96 (0.82-1.09)
[2020-12-10 17:26] LABS: Influenza A Molecular Negative (Negative); Influenza B Molecular Negative (Negative)
[2020-12-10 17:54] LABS: Ferritin 236.5 ng/mL (11-307)
[2020-12-10 18:02] LABS: ALT 17 U/L (7-52); AST 11 U/L (13-39); Albumin 5.4 g/dL (3.2-5.2); Albumin/Globulin Ratio 1.5 (1-3); Alkaline Phosphatase 112 U/L (34-104); BUN/Creatinine Ratio 18.1 (8-20); Blood Urea Nitrogen 19 mg/dL (6-24); C Reactive Protein 10.61 mg/L (<8.01); Chloride 100 mmol/L (101-111); EGFR African American 80.8 (>60); EGFR Non-African American 66.8 (>60); Globulin 3.6 g/dL (2-4); Glucose 273 mg/dL (70-100); LDH 183 U/L (140-271); Lipase 17 U/L (11.0-82.0); Sodium 134 mmol/L (135-145)
[2020-12-10 18:03] LABS: Anion Gap 26 mmol/L (2-11); CO2 Carbon Dioxide 8 mmol/L (22-32)
[2020-12-10] MEDS ORDERED: Insulin Infusion 100unit/100mL 100 UNIT/100 ML BAG IV ONE (18:04)
[2020-12-10 18:54] LABS: Urine Appearance Cloudy; Urine Bilirubin Negative (Negative); Urine Blood Negative (Negative); Urine Color Yellow; Urine Glucose 3+(>=500 mg/dL) (Negative); Urine Ketones 2+ (Negative); Urine Nitrite Negative (Negative); Urine Protein 3+(>=500 mg/dL) (Negative); Urine Specific Gravity 1.023 (1.010-1.030); Urine Urobilinogen Negative (Negative)
[2020-12-10 19:05] LABS: Urine Bacteria Absent (Absent); Urine Red Blood Cell Absent (Absent); Urine Squamous Epithelial Cell Present (Absent); Urine White Blood Cell 1+(6-10/hpf) (Absent)
[2020-12-10] MEDS ORDERED: Iodixanol (CONTRAST) 320 MG/ML 100 ML SDV IV ONE (19:20)
[2020-12-10] MEDS ORDERED: D5W 1/2 NS KCl 20 meq 1000 ml 1,000 ML IV ONE (19:59)
[2020-12-10] MEDS ORDERED: NS 0.9% 1000 ml BAG 1,000 ML IV ONE (20:00)
[2020-12-10] MEDS: Dextrose 50% Syringe 50 ml 25 GM/50 ML SYRINGE IV PUSH ONE ×2 (20:02→21:10)
[2020-12-10] MEDS ORDERED: Dextrose 50% Syringe 50 ml 25 GM/50 ML SYRINGE IV PUSH PRN (20:37)
[2020-12-10] MEDS ORDERED: Ondansetron 4 mg VIAL 2 MG/ML 2 ml VIAL IV PRN (20:37)
[2020-12-10 20:58] LABS: Albumin 3.8 g/dL (3.2-5.2); Calcium 7.6 mg/dL (8.6-10.3); Potassium 3.4 mmol/L (3.5-5.0); Total Bilirubin 0.9 mg/dL (0.2-1.0)
[2020-12-10] MEDS ORDERED: Insulin Infusion 100unit/100mL 100 UNIT/100 ML BAG IV SCH (21:00)
[2020-12-10] MEDS ORDERED: D5W 1/2 NS KCl 20 meq 1000 ml 1,000 ML IV SCH ×2 (21:00)
[2020-12-10 21:03] LABS: Albumin/Globulin Ratio 1.8 (1-3); BUN/Creatinine Ratio 23.1 (8-20); EGFR African American 140.6 (>60); EGFR Non-African American 116.2 (>60); Globulin 2.1 g/dL (2-4); Total Protein 5.9 g/dL (6.4-8.9)
[2020-12-10] MEDS: KCL 10 MEQ/50 ML IVPREMIX 10 MEQ/50 ML BAG IV SCH (22:22)
[2020-12-11] MEDS: KCL 10 MEQ/50 ML IVPREMIX 10 MEQ/50 ML BAG IV SCH (00:03)
[2020-12-11 02:08] LABS: BUN/Creatinine Ratio 18.6 (8-20); Calcium 8.3 mg/dL (8.6-10.3); EGFR African American 129.1 (>60); EGFR Non-African American 106.7 (>60); Potassium 4.8 mmol/L (3.5-5.0)
[2020-12-11 07:57] LABS: ABS Basophils 0.1 10^3/ul (0-0.2); ABS Eosinophils 0.2 10^3/ul (0-0.6); ABS Lymphocytes 3.5 10^3/ul (1.0-4.8); ABS Monocytes 0.8 10^3/ul (0-0.8); ABS Neutrophils 4.5 10^3/ul (1.5-7.7); Eosinophil % 2.1 %; Hematocrit 37 % (35-47); Lymphocyte % 38.9 %; Mean Corpuscular HGB Conc 35 g/dL (31-36); Mean Corpuscular Hemoglobin 30 pg (27-31); Mean Corpuscular Volume 86 fL (80-97); Mean Platelet Volume 8.7 fL (7.4-10.4); Nucleated Red Blood Cells % 0.1; Platelet Count 244 10^3/uL (150-450); Red Blood Count 4.28 10^6 /uL (3.70-4.87); Red Cell Distribution Width 13 % (10-15)
[2020-12-11 08:07] LABS: Calcium 8.7 mg/dL (8.6-10.3); Potassium 3.8 mmol/L (3.5-5.0)
[2020-12-11 08:11] LABS: INR 0.99 (0.82-1.09)
[2020-12-11 08:13] LABS: BUN/Creatinine Ratio 19.4 (8-20); EGFR African American 148.5 (>60); EGFR Non-African American 122.7 (>60)
[2020-12-11 10:37] VITALS: BP 119/78
[2020-12-11] MEDS ORDERED: Dextran 70/Hypromellose Tears Eye Drops 15 ml BTL (for Artificials Tears) BOTH EYES SCH (11:12)
[2020-12-11] MEDS ORDERED: Amphetamine MIXED SALT 10mgTAB PO SCH (12:00)
== END 2020-12-11 13:30 | disposition home or self-care (01) | DRG 420 ==
LOC: ED 16:35 → ICU 20:58
PROVIDERS: ADMIT Internal Medicine; ATTEND Internal Medicine

== ENCOUNTER 2021-05-08 20:40 | Inpatient (IN) ==
[2021-05-08] MEDS ORDERED: NS 0.9% 1000 ml BAG 1,000 ML IV ONE (21:20)
[2021-05-08] MEDS ORDERED: Ondansetron 4 mg VIAL 2 MG/ML 2 ml VIAL IV ONE (21:23)
[2021-05-08 21:41] LABS: ABS Basophils 0.1 10^3/ul (0-0.2); ABS Lymphocytes 2.8 10^3/ul (1.0-4.8); ABS Monocytes 0.7 10^3/ul (0-0.8); ABS Neutrophils 9.6 10^3/ul (1.5-7.7); Eosinophil % 0.2 %; Hematocrit 44 % (35-47); Hemoglobin 15.3 g/dL (12.0-16.0); Lymphocyte % 21.2 %; Mean Corpuscular HGB Conc 35 g/dL (31-36); Mean Corpuscular Hemoglobin 30 pg (27-31); Mean Corpuscular Volume 87 fL (80-97); Mean Platelet Volume 9.4 fL (7.4-10.4); Platelet Count 366 10^3/uL (150-450); Red Blood Count 5.08 10^6 /uL (3.70-4.87); Red Cell Distribution Width 13 % (10-15); White Blood Count 13.2 10^3/uL (3.5-10.8)
[2021-05-08 21:56] LABS: ALT 17 U/L (7-52); AST 11 U/L (13-39); Albumin 5.2 g/dL (3.2-5.2); Albumin/Globulin Ratio 1.6 (1-3); Alkaline Phosphatase 107 U/L (35-149); Blood Urea Nitrogen 14 mg/dL (6-24); Calcium 10.2 mg/dL (8.6-10.3); Chloride 93 mmol/L (101-111); Creatine Kinase 52 U/L (10-223); EGFR African American 86.5 (>60); EGFR Non-African American 71.5 (>60); Globulin 3.3 g/dL (2-4); Lipase < 10 U/L (11.0-82.0); Potassium 4.2 mmol/L (3.5-5.0); Sodium 128 mmol/L (135-145); Total Protein 8.5 g/dL (6.4-8.9)
[2021-05-08 22:06] LABS: Anion Gap 25 mmol/L (2-11); CO2 Carbon Dioxide 10 mmol/L (22-32); Glucose 555 mg/dL (70-100)
[2021-05-08 22:11] LABS: Venous Bicarbonate HCO3 10.2 mmol/L (24-28)
[2021-05-08] MEDS ORDERED: Insulin Infusion 100unit/100mL 100 UNIT/100 ML BAG IV ONE (22:30)
[2021-05-08 22:47] LABS: Alcohol, S < 10 mg/dL (<10)
[2021-05-09 00:31] LABS: Glucose Confirmatory 435 mg/dL (70-100)
[2021-05-09] MEDS ORDERED: KCL 20 MEQ/100 ML IVPREMIX 20 MEQ/100 ML BAG IV ONE (00:33)
[2021-05-09] MEDS ORDERED: NS 0.9% 1000 ml BAG 1,000 ML IV SCH ×2 (00:45→01:07)
[2021-05-09 01:01] LABS: Urine Appearance Cloudy; Urine Bilirubin Negative (Negative); Urine Blood Negative (Negative); Urine Color Straw; Urine Glucose 3+(>=500 mg/dL) (Negative); Urine Ketones 2+ (Negative); Urine Nitrite Negative (Negative); Urine Protein 1+(30 mg/dL) (Negative); Urine Specific Gravity 1.028 (1.002-1.030); Urine Urobilinogen Negative (Negative)
[2021-05-09 01:14] LABS: Urine Bacteria 1+ (Absent); Urine Red Blood Cell Trace(0-2/hpf) (Absent); Urine Squamous Epithelial Cell Present (Absent); Urine White Blood Cell Trace(0-5/hpf) (Absent)
[2021-05-09 01:18] LABS: Urine Benzodiazepine Screen None Detected (None Detect); Urine Cannabinoids Screen None Detected (None Detect); Urine Opiates Screen None Detected (None Detect)
[2021-05-09] MEDS ORDERED: Insulin Infusion 100unit/100mL 100 UNIT/100 ML BAG IV SCH ×2 (01:25→19:00)
[2021-05-09] MEDS ORDERED: D5W 1/2 NS 1000 ml BAG 1,000 ML IV SCH ×4 (02:20→18:43)
[2021-05-09 03:21] LABS: Calcium 9.9 mg/dL (8.6-10.3); EGFR African American 96.6 (>60); EGFR Non-African American 79.8 (>60); Magnesium 1.9 mg/dL (1.9-2.7)
[2021-05-09] MEDS: DOXYcycline 100 MG in NS 0.9% 250 ml 250 ML IVPB SCH ×2 (03:44→14:44)
[2021-05-09] MEDS ORDERED: Magnesium Sulfate IV 1GM/100ML 1 GM/100 ML BAG IV ONE (04:02)
[2021-05-09 05:26] LABS: Phosphorus 2.7 mg/dL (2.5-5.0)
[2021-05-09 06:51] LABS: ABS Basophils 0.1 10^3/ul (0-0.2); Eosinophil % 0.2 %; Hematocrit 40 % (35-47); Lymphocyte % 28.1 %; Mean Corpuscular HGB Conc 35 g/dL (31-36); Mean Corpuscular Hemoglobin 30 pg (27-31); Mean Corpuscular Volume 85 fL (80-97); Mean Platelet Volume 8.8 fL (7.4-10.4); Platelet Count 361 10^3/uL (150-450); Red Blood Count 4.64 10^6 /uL (3.70-4.87); Red Cell Distribution Width 13 % (10-15); White Blood Count 14.1 10^3/uL (3.5-10.8)
[2021-05-09 07:08] LABS: Calcium 9.3 mg/dL (8.6-10.3); Magnesium 2.2 mg/dL (1.9-2.7); Phosphorus 2.3 mg/dL (2.5-5.0); Potassium 4.1 mmol/L (3.5-5.0)
[2021-05-09] MEDS ORDERED: Insulin GLARGINE 100 un/ml 10 ml VIAL SUBCUT ONE (07:38)
[2021-05-09] MEDS ORDERED: Dextrose 50% Syringe 50 ml 25 GM/50 ML SYRINGE IV PUSH ONE (07:39)
[2021-05-09] MEDS: KCL 20 MEQ/100 ML IVPREMIX 20 MEQ/100 ML BAG IV SCH ×2 (07:58→10:09)
[2021-05-09] MEDS ORDERED: Potassium Phosphate IV 15 MMOLE in NS 0.9% 250 ml 250 ML IVPB ONE (08:00)
[2021-05-09 11:18] LABS: Venous Bicarbonate HCO3 19.2 mmol/L (24-28)
[2021-05-09] MEDS ORDERED: Lidocaine 1% w EPI 1:100,000 MDV 20 ML VIAL ONE (11:19)
[2021-05-09 11:36] LABS: Calcium 9.2 mg/dL (8.6-10.3); EGFR African American 119.2 (>60); EGFR Non-African American 98.5 (>60); Magnesium 1.9 mg/dL (1.9-2.7); Phosphorus 2.7 mg/dL (2.5-5.0); Potassium 4.4 mmol/L (3.5-5.0)
[2021-05-09] MEDS ORDERED: Propofol 10 MG/ML 20 ML BTL ONE (11:55)
[2021-05-09] MEDS ORDERED: fentaNYL 250 mcg/5 ml 50 MCG/ML 5 ml VIAL (250 MCG) ONE (11:55)
[2021-05-09] MEDS ORDERED: Dextrose 50% Syringe 50 ml 25 GM/50 ML SYRINGE IV PUSH PRN (14:35)
[2021-05-09 18:06] LABS: Calcium 8.9 mg/dL (8.6-10.3); Potassium 4.1 mmol/L (3.5-5.0)
[2021-05-09 18:08] LABS: Venous Bicarbonate HCO3 15.1 mmol/L (24-28)
[2021-05-09] MEDS: cefTRIAXone 1 gm/50 mL NS BAG 1 GM/50 ML BAG IVPB SCH (18:20)
[2021-05-09] MEDS ORDERED: Glucose ORAL 15 GM TUBE PO ONE (18:49)
[2021-05-09] MEDS ORDERED: Ondansetron 4 mg VIAL 2 MG/ML 2 ml VIAL IV PRN (19:40)
[2021-05-09 23:56] LABS: Calcium 7.5 mg/dL (8.6-10.3); EGFR African American 163.6 (>60); EGFR Non-African American 135.2 (>60); Potassium 2.8 mmol/L (3.5-5.0)
[2021-05-10] MEDS ORDERED: Glucose ORAL 15 GM TUBE PO ONE (00:07)
[2021-05-10 00:48] LABS: Calcium 9.2 mg/dL (8.6-10.3); EGFR African American 154.2 (>60); EGFR Non-African American 127.5 (>60); Potassium 3.4 mmol/L (3.5-5.0)
[2021-05-10] MEDS ORDERED: KCL 20 MEQ/100 ML IVPREMIX 20 MEQ/100 ML BAG IV ONE ×2 (00:53→03:00)
[2021-05-10] MEDS ORDERED: Potassium Chlor 20 meq TAB.ER PO ONE (00:53)
[2021-05-10] MEDS ORDERED: Insulin Infusion 100unit/100mL 100 UNIT/100 ML BAG IV SCH (01:42)
[2021-05-10] MEDS ORDERED: D5W 1/2 NS 1000 ml BAG 1,000 ML IV SCH (03:05)
[2021-05-10 05:48] LABS: Hematocrit 37 % (35-47); Mean Corpuscular HGB Conc 35 g/dL (31-36); Mean Corpuscular Hemoglobin 30 pg (27-31); Mean Corpuscular Volume 86 fL (80-97); Mean Platelet Volume 8.9 fL (7.4-10.4); Platelet Count 275 10^3/uL (150-450); Red Blood Count 4.29 10^6 /uL (3.70-4.87); Red Cell Distribution Width 13 % (10-15); White Blood Count 11.1 10^3/uL (3.5-10.8)
[2021-05-10 06:05] LABS: Calcium 8.6 mg/dL (8.6-10.3); EGFR African American 174.2 (>60); EGFR Non-African American 143.9 (>60); Magnesium 1.6 mg/dL (1.9-2.7); Phosphorus 2.2 mg/dL (2.5-5.0); Potassium 4.3 mmol/L (3.5-5.0)
[2021-05-10] MEDS ORDERED: Magnesium Sulf 4 GM/100 ML IV 4,000 MG/100 ML BAG IVPB ONE (06:06)
[2021-05-10] MEDS ORDERED: Insulin GLARGINE 100 un/ml 10 ml VIAL SUBCUT ONE ×2 (06:18→10:58)
[2021-05-10] MEDS ORDERED: Dextrose 50% Syringe 50 ml 25 GM/50 ML SYRINGE IV PUSH PRN (06:19)
[2021-05-10] MEDS ORDERED: Magnesium Sulfate 2 gm BAG 2 GM/50 ML BAG IVPB ONE (08:14)
[2021-05-10 10:15] LABS: Blood Urea Nitrogen 8 mg/dL (6-24); CO2 Carbon Dioxide 18 mmol/L (22-32); Calcium 8.8 mg/dL (8.6-10.3); Chloride 110 mmol/L (101-111); EGFR African American 145.8 (>60); EGFR Non-African American 120.5 (>60); Glucose 248 mg/dL (70-100); Sodium 135 mmol/L (135-145)
[2021-05-10 10:37] LABS: Anion Gap 7 mmol/L (2-11)
[2021-05-10 17:46] LABS: Calcium 9.1 mg/dL (8.6-10.3); EGFR African American 133.5 (>60); EGFR Non-African American 110.3 (>60); Potassium 4.1 mmol/L (3.5-5.0)
[2021-05-10] MEDS: cefTRIAXone 1 gm/50 mL NS BAG 1 GM/50 ML BAG IVPB SCH (17:56)
[2021-05-11 05:57] LABS: Hematocrit 35 % (35-47); Hemoglobin 12.4 g/dL (12.0-16.0); Mean Corpuscular HGB Conc 35 g/dL (31-36); Mean Corpuscular Hemoglobin 31 pg (27-31); Mean Corpuscular Volume 89 fL (80-97); Mean Platelet Volume 9.4 fL (7.4-10.4); Platelet Count 247 10^3/uL (150-450); Red Blood Count 3.98 10^6 /uL (3.70-4.87); Red Cell Distribution Width 13 % (10-15); White Blood Count 9.5 10^3/uL (3.5-10.8)
[2021-05-11 08:43] LABS: Calcium 8.9 mg/dL (8.6-10.3); EGFR African American 181.9 (>60); EGFR Non-African American 150.3 (>60); Magnesium 1.8 mg/dL (1.9-2.7); Phosphorus 3.5 mg/dL (2.5-5.0); Potassium 3.6 mmol/L (3.5-5.0)
[2021-05-11] MEDS ORDERED: Insulin GLARGINE 100 un/ml 10 ml VIAL SUBCUT SCH (09:00)
[2021-05-11 12:08] VITALS: BP 133/76
== END 2021-05-11 12:10 | disposition home or self-care (01) | DRG 420 ==
LOC: ICU 20:40 → ED 20:40 → INTOOBSV 23:41 → OBSVTOIN 23:41 → MERGE 05-09 00:48 → ICU 05-09 04:05 → MEDTELE 05-11 01:58
PROVIDERS: ADMIT Internal Medicine; ATTEND Internal Medicine

== ENCOUNTER 2021-12-20 15:15 | Inpatient (IN) ==
[2021-12-20 16:30] LABS: Troponin I 0.01 ng/mL (<0.03)
[2021-12-20 16:32] LABS: Albumin 3.9 g/dL (3.2-5.2); Albumin/Globulin Ratio 1.4 (1-3); Calcium 9.2 mg/dL (8.6-10.3); Globulin 2.7 g/dL (2-4); Total Protein 6.6 g/dL (6.4-8.9); eGFR CKD-EPI 126.1 (>60)
[2021-12-20 16:43] LABS: Potassium 5.1 mmol/L (3.5-5.0)
[2021-12-20 16:52] LABS: INR 0.79 (0.86-1.15)
[2021-12-20 16:53] LABS: ABS Lymphocytes 1.8 10^3/ul (1.0-4.8); ABS Monocytes 0.4 10^3/ul (0-0.8); ABS Neutrophils 3.9 10^3/ul (1.5-7.7); Eosinophil % 0.4 %; Hematocrit 40 % (35-47); Hemoglobin 13.4 g/dL (12.0-16.0); Lymphocyte % 28.9 %; Mean Corpuscular HGB Conc 34 g/dL (31-36); Mean Corpuscular Hemoglobin 31 pg (27-31); Mean Corpuscular Volume 92 fL (80-97); Mean Platelet Volume 8.9 fL (7.4-10.4); Nucleated Red Blood Cells % 0.1; Platelet Count 253 10^3/uL (150-450); Red Blood Count 4.31 10^6 /uL (3.70-4.87); Red Cell Distribution Width 14 % (10-15); White Blood Count 6.2 10^3/uL (3.5-10.8)
[2021-12-20] MEDS ORDERED: Lactated Ringers 1000 ml BAG 1,000 ML IV ONE ×2 (17:00→21:04)
[2021-12-20 19:16] LABS: Venous Bicarbonate HCO3 19.9 mmol/L (24-28)
[2021-12-20] MEDS ORDERED: Insulin GLARGINE 100 un/ml 10 ml VIAL SUBCUT ONE (19:55)
[2021-12-20] MEDS ORDERED: Dextrose 50% Syringe 50 ml 25 GM/50 ML SYRINGE IV PUSH PRN ×2 (19:56→21:05)
[2021-12-20 21:29] LABS: Urine Appearance Cloudy; Urine Bilirubin Negative (Negative); Urine Blood Negative (Negative); Urine Color Straw; Urine Glucose 3+(>=500 mg/dL) (Negative); Urine Ketones 2+ (Negative); Urine Nitrite Negative (Negative); Urine Protein Negative (Negative); Urine Specific Gravity 1.028 (1.002-1.030); Urine Urobilinogen Negative (Negative)
[2021-12-20 21:32] LABS: Urine Bacteria Absent (Absent); Urine Red Blood Cell 1+(3-5/hpf) (Absent); Urine Squamous Epithelial Cell Present (Absent); Urine White Blood Cell Trace(0-5/hpf) (Absent)
[2021-12-20] MEDS ORDERED: Ondansetron 4 mg VIAL 2 MG/ML 2 ml VIAL IV PRN (22:07)
[2021-12-20] MEDS ORDERED: D5W 1/2 NS 1000 ml BAG 1,000 ML IV SCH (23:00)
[2021-12-21] MEDS ORDERED: Benzocaine (DENTAL) 10% TOP.GEL TOPICAL PRN (00:43)
[2021-12-21] MEDS ORDERED: Nicotine GUM 4MG FRUIT FLAVOR PO PRN (00:43)
[2021-12-21 02:15] LABS: Calcium 8.7 mg/dL (8.6-10.3); Magnesium 1.6 mg/dL (1.9-2.7); eGFR CKD-EPI 126.5 (>60)
[2021-12-21 02:33] LABS: Potassium 3.4 mmol/L (3.5-5.0)
[2021-12-21] MEDS ORDERED: Magnesium Sulfate IV 3 GM in NS 0.9% 100 ml BAG 100 ML IVPB ONE (03:02)
[2021-12-21] MEDS ORDERED: Potassium Chloride LIQUID 20 MEQ/15 ML LIQUID PO ONE (03:30)
[2021-12-21 08:29] LABS: ABS Basophils 0.1 10^3/ul (0-0.2); ABS Eosinophils 0.2 10^3/ul (0-0.6); ABS Lymphocytes 3.7 10^3/ul (1.0-4.8); ABS Monocytes 0.6 10^3/ul (0-0.8); Eosinophil % 2.6 %; Hematocrit 33 % (35-47); Hemoglobin 11.8 g/dL (12.0-16.0); Lymphocyte % 49.3 %; Mean Corpuscular HGB Conc 36 g/dL (31-36); Mean Corpuscular Hemoglobin 31 pg (27-31); Mean Corpuscular Volume 87 fL (80-97); Mean Platelet Volume 8.3 fL (7.4-10.4); Nucleated Red Blood Cells % 0.1; Platelet Count 246 10^3/uL (150-450); Red Blood Count 3.83 10^6 /uL (3.70-4.87); Red Cell Distribution Width 14 % (10-15); White Blood Count 7.5 10^3/uL (3.5-10.8)
[2021-12-21 08:48] LABS: Calcium 8.2 mg/dL (8.6-10.3); Magnesium 2.1 mg/dL (1.9-2.7); Phosphorus 3.3 mg/dL (2.5-5.0); Potassium 4.2 mmol/L (3.5-5.0); eGFR CKD-EPI 133.1 (>60)
[2021-12-21] MEDS ORDERED: Dextrose 50% Syringe 50 ml 25 GM/50 ML SYRINGE IV PUSH PRN (11:46)
[2021-12-21] MEDS: Insulin GLARGINE 100 un/ml 10 ml VIAL SUBCUT SCH (21:07)
[2021-12-22] MEDS ORDERED: Hydrocortisone 0.5% OINT 1 TUBE TOPICAL SCH (14:30)
[2021-12-22] MEDS ORDERED: buPROPion SR 100 mg TAB.SR PO SCH (15:00)
[2021-12-22 15:35] LABS: ALT 21 U/L (7-52); Albumin 3.7 g/dL (3.2-5.2); Albumin/Globulin Ratio 1.5 (1-3); Alkaline Phosphatase 64 U/L (35-149); Blood Urea Nitrogen 29 mg/dL (6-24); CO2 Carbon Dioxide 24 mmol/L (22-32); Calcium 8.7 mg/dL (8.6-10.3); Chloride 105 mmol/L (101-111); Globulin 2.4 g/dL (2-4); Glucose 150 mg/dL (70-100); Sodium 134 mmol/L (135-145); Total Protein 6.1 g/dL (6.4-8.9)
[2021-12-22 18:23] LABS: Anion Gap 5 mmol/L (2-11)
[2021-12-22 21:17] LABS: Glucose Confirmatory 493 mg/dL (70-100)
[2021-12-22 21:25] LABS: HCG Pregnancy < 0.60 mIU/mL
[2021-12-22] MEDS ORDERED: Dextrose 50% Syringe 50 ml 25 GM/50 ML SYRINGE IV PUSH PRN (21:43)
[2021-12-22] MEDS: Insulin GLARGINE 100 un/ml 10 ml VIAL SUBCUT SCH (22:04)
[2021-12-23] MEDS ORDERED: Dextrose 50% Syringe 50 ml 25 GM/50 ML SYRINGE IV PUSH PRN (21:57)
[2021-12-23] MEDS: Insulin GLARGINE 100 un/ml 10 ml VIAL SUBCUT SCH (22:05)
[2021-12-24] MEDS: Insulin GLARGINE 100 un/ml 10 ml VIAL SUBCUT SCH (20:42)
[2021-12-25 07:47] VITALS: BP 114/75
== END 2021-12-25 10:00 | DRG 776 ==
LOC: MEDTELE 15:15 → ED 15:15 → SUATTDRO 21:06 → OBSVTOIN 21:06 → INTOOBSV 21:06 → MEDTELE 23:58 → BSU 12-21 12:20
PROVIDERS: ADMIT Internal Medicine; ATTEND Student in an Organized Health Care Education/Training Program

== ENCOUNTER 2022-02-26 13:00 | Observation (INO) ==
[2022-02-26] MEDS ORDERED: NS 0.9% 1000 ml BAG 1,000 ML IV ONE (13:24)
[2022-02-26 13:45] LABS: Venous Bicarbonate HCO3 20.6 mmol/L (24-28)
[2022-02-26 13:45] LABS: ABS Eosinophils 0.1 10^3/ul (0-0.6); ABS Lymphocytes 1.7 10^3/ul (1.0-4.8); ABS Monocytes 0.3 10^3/ul (0-0.8); ABS Neutrophils 4.4 10^3/ul (1.5-7.7); Hematocrit 40 % (35-47); Hemoglobin 13.8 g/dL (12.0-16.0); Lymphocyte % 25.7 %; Mean Corpuscular HGB Conc 35 g/dL (31-36); Mean Corpuscular Hemoglobin 32 pg (27-31); Mean Corpuscular Volume 90 fL (80-97); Mean Platelet Volume 8.4 fL (7.4-10.4); Platelet Count 308 10^3/uL (150-450); Red Blood Count 4.39 10^6 /uL (3.70-4.87); Red Cell Distribution Width 14 % (10-15); White Blood Count 6.4 10^3/uL (3.5-10.8)
[2022-02-26 14:10] LABS: Urine Benzodiazepine Screen None Detected (None Detect); Urine Cannabinoids Screen None Detected (None Detect); Urine Opiates Screen None Detected (None Detect)
[2022-02-26 14:20] LABS: Urine Appearance Clear; Urine Bilirubin Negative (Negative); Urine Blood Negative (Negative); Urine Color Straw; Urine Glucose 3+(>=500 mg/dL) (Negative); Urine Ketones 2+ (Negative); Urine Nitrite Negative (Negative); Urine Protein Negative (Negative); Urine Urobilinogen Negative (Negative)
[2022-02-26 14:30] LABS: Albumin 3.8 g/dL (3.2-5.2); Anion Gap 11 mmol/L (2-11); Blood Urea Nitrogen 19 mg/dL (6-24); CO2 Carbon Dioxide 22 mmol/L (22-32); Calcium 8.8 mg/dL (8.6-10.3); Chloride 90 mmol/L (101-111); Magnesium 1.7 mg/dL (1.9-2.7); Potassium 4.6 mmol/L (3.5-5.0); Sodium 123 mmol/L (135-145); Total Protein 6.2 g/dL (6.4-8.9); eGFR CKD-EPI 114.3 (>60)
[2022-02-26 14:31] LABS: ALT 13 U/L (7-52); AST 10 U/L (13-39); Albumin/Globulin Ratio 1.6 (1-3); Alkaline Phosphatase 102 U/L (35-149); C Reactive Protein 1.24 mg/L (<8.01); Globulin 2.4 g/dL (2-4)
[2022-02-26 14:34] LABS: Urine Bacteria Absent (Absent); Urine Red Blood Cell Absent (Absent); Urine Squamous Epithelial Cell Present (Absent); Urine White Blood Cell Trace(0-5/hpf) (Absent)
[2022-02-26 14:35] LABS: HCG Pregnancy < 0.60 mIU/mL
[2022-02-26] MEDS ORDERED: Dextrose 50% Syringe 50 ml 25 GM/50 ML SYRINGE IV PUSH PRN ×2 (14:40→16:07)
[2022-02-26] MEDS ORDERED: NORMOSOL-R pH 7.4 1000 mL BAG 1,000 ML IV ONE (14:40)
[2022-02-26 14:51] LABS: Glucose 792 mg/dL (70-100)
[2022-02-26] MEDS ORDERED: Insulin Infusion 100unit/100mL 100 UNIT/100 ML BAG IV SCH (15:00)
[2022-02-26] MEDS: KCL 20 MEQ/100 ML IVPREMIX 20 MEQ/100 ML BAG IV SCH ×2 (15:19→18:15)
[2022-02-26] MEDS ORDERED: Magnesium Sulfate 2 gm BAG 2 GM/50 ML BAG IVPB ONE (15:39)
[2022-02-26] MEDS ORDERED: Lactated Ringers 1000 ml BAG 1,000 ML IV ONE (15:50)
[2022-02-26] MEDS ORDERED: NORMOSOL-R pH 7.4 1000 mL BAG 1,000 ML IV SCH (16:00)
[2022-02-26] MEDS: Lactated Ringers 1000 ml BAG 1,000 ML IV SCH (16:04)
[2022-02-26] MEDS ORDERED: Ondansetron 4 mg VIAL 2 MG/ML 2 ml VIAL IV PRN (16:04)
[2022-02-26] MEDS ORDERED: Insulin GLARGINE 100 un/ml 10 ml VIAL SUBCUT ONE (16:07)
[2022-02-26] MEDS ORDERED: Enoxaparin 40 MG/0.4 ML SYR SUBCUT SCH (17:00)
[2022-02-26] MEDS ORDERED: Potassium Chloride LIQUID 20 MEQ/15 ML LIQUID PO ONE (17:44)
[2022-02-26 21:47] LABS: Glucose Confirmatory 475 mg/dL (70-100)
[2022-02-26 22:04] LABS: Calcium 8.9 mg/dL (8.6-10.3); Potassium 4.5 mmol/L (3.5-5.0); eGFR CKD-EPI 74.9 (>60)
[2022-02-27] MEDS: Lactated Ringers 1000 ml BAG 1,000 ML IV SCH ×2 (00:32→06:12)
[2022-02-27 05:28] LABS: ABS Basophils 0.1 10^3/ul (0-0.2); ABS Eosinophils 0.2 10^3/ul (0-0.6); ABS Lymphocytes 4.3 10^3/ul (1.0-4.8); ABS Monocytes 0.4 10^3/ul (0-0.8); ABS Neutrophils 3.4 10^3/ul (1.5-7.7); Eosinophil % 2.4 %; Hematocrit 35 % (35-47); Hemoglobin 12.5 g/dL (12.0-16.0); Lymphocyte % 51.1 %; Mean Corpuscular HGB Conc 36 g/dL (31-36); Mean Corpuscular Hemoglobin 31 pg (27-31); Mean Corpuscular Volume 87 fL (80-97); Mean Platelet Volume 8.2 fL (7.4-10.4); Platelet Count 285 10^3/uL (150-450); Red Blood Count 4.02 10^6 /uL (3.70-4.87); Red Cell Distribution Width 14 % (10-15); White Blood Count 8.4 10^3/uL (3.5-10.8)
[2022-02-27 05:55] LABS: Calcium 8.4 mg/dL (8.6-10.3); Magnesium 1.7 mg/dL (1.9-2.7); Potassium 3.8 mmol/L (3.5-5.0); eGFR CKD-EPI 133.1 (>60)
[2022-02-27] MEDS ORDERED: Magnesium Sulfate 2 gm BAG 2 GM/50 ML BAG IVPB ONE (07:09)
[2022-02-27] MEDS ORDERED: Insulin GLARGINE 100 un/ml 10 ml VIAL SUBCUT SCH (09:00)
[2022-02-27 11:03] VITALS: BP 111/47
== END 2022-02-27 13:25 | disposition home or self-care (01) ==
LOC: ED 13:00 → EDHOLD 13:00 → MEDTELE 18:45
PROVIDERS: ADMIT Hospitalist; ATTEND Hospitalist

== ENCOUNTER 2022-06-24 13:46 | Inpatient (IN) ==
[2022-06-24] MEDS: Lactated Ringers 1000 ml BAG 1,000 ML IV SCH ×2 (15:00→15:25)
[2022-06-24 15:01] LABS: ABS Lymphocytes 1.3 10^3/ul (1.0-4.8); ABS Monocytes 0.6 10^3/ul (0-0.8); ABS Neutrophils 17.6 10^3/ul (1.5-7.7); Hematocrit 42 % (35-47); Hemoglobin 13.9 g/dL (12.0-16.0); Lymphocyte % 6.7 %; Mean Corpuscular HGB Conc 33 g/dL (31-36); Mean Corpuscular Hemoglobin 29 pg (27-31); Mean Corpuscular Volume 89 fL (80-97); Mean Platelet Volume 8.8 fL (7.4-10.4); Platelet Count 471 10^3/uL (150-450); Red Blood Count 4.75 10^6 /uL (3.70-4.87); Red Cell Distribution Width 13 % (10-15); White Blood Count 19.6 10^3/uL (3.5-10.8)
[2022-06-24 15:03] LABS: PO2 Arterial 141 mmHg (80-100)
[2022-06-24 15:05] LABS: PCO2 Arterial <20 mmHg (35-45)
[2022-06-24 15:16] LABS: Urine Appearance Clear; Urine Bilirubin Negative (Negative); Urine Blood Trace (Lysed) (Negative); Urine Color Yellow; Urine Glucose 2+ (500mg/dL) (Negative); Urine Ketones 4+ (>=160mg/dL) (Negative); Urine Nitrite Negative (Negative); Urine Protein Trace (Negative); Urine Urobilinogen 0.2 (Negative) (Negative); Urine pH 5.5 (5.0-9.0)
[2022-06-24 15:20] LABS: Urine Bacteria 1+ (Absent); Urine Red Blood Cell Trace(0-2/hpf) (Absent); Urine Squamous Epithelial Cell Present (Absent); Urine White Blood Cell Trace(0-5/hpf) (Absent)
[2022-06-24 15:34] LABS: Albumin 4.9 g/dL (3.2-5.2); Chloride 97 mmol/L (101-111); Magnesium 2.2 mg/dL (1.9-2.7); Sodium 132 mmol/L (135-145)
[2022-06-24] MEDS ORDERED: Dextrose 50% Syringe 50 ml 25 GM/50 ML SYRINGE IV PUSH PRN (15:35)
[2022-06-24 15:39] LABS: CO2 Carbon Dioxide < 7 mmol/L (22-32)
[2022-06-24 15:41] LABS: ALT 11 U/L (7-52); AST 9 U/L (13-39); Albumin/Globulin Ratio 1.6 (1-3); Alkaline Phosphatase 108 U/L (35-149); Blood Urea Nitrogen 41 mg/dL (6-24); Creatine Kinase 23 U/L (10-223); Globulin 3.1 g/dL (2-4); Glucose 673 mg/dL (70-100); Phosphorus 4.8 mg/dL (2.5-5.0); eGFR CKD-EPI 60.6 (>60)
[2022-06-24 15:46] LABS: HCG Pregnancy < 0.60 mIU/mL
[2022-06-24 15:55] LABS: TSH Ultra Thyroid Stim Horm 1.05 mcIU/mL (0.34-5.60)
[2022-06-24] MEDS ORDERED: Sodium Bicarb 8.4% Vial 50 ML 150 MEQ in D5W 1000 ml BAG 850 ML IV SCH (16:00)
[2022-06-24] MEDS: Insulin Infusion 100unit/100mL 100 UNIT/100 ML BAG IV SCH (16:16)
[2022-06-24 16:55] LABS: Glucose Confirmatory 407 mg/dL (70-100)
[2022-06-24] MEDS: Ondansetron 4 mg VIAL 2 MG/ML 2 ml VIAL IV PRN ×2 (17:13→20:30)
[2022-06-24] MEDS ORDERED: Potassium Chloride IV 20 MEQ in Lactated Ringers 1000 ml BAG 1,000 ML IVPB SCH (18:00)
[2022-06-24 18:23] LABS: Lipase 88 U/L (11.0-82.0)
[2022-06-24 18:34] LABS: Blood Urea Nitrogen 21 mg/dL (6-24); Glucose 302 mg/dL (70-100); Sodium 143 mmol/L (135-145); eGFR CKD-EPI 144.3 (>60)
[2022-06-24 18:42] LABS: Chloride 126 mmol/L (101-111)
[2022-06-24 18:47] LABS: CO2 Carbon Dioxide < 7 mmol/L (22-32); Calcium 4.1 mg/dL (8.6-10.3)
[2022-06-24 20:14] LABS: High Sensitivity Troponin 1 Hr < 3 pg/mL (<15)
[2022-06-24] MEDS: D5LR 20 MEQ KCL 1000 ml BAG 1,000 ML IV SCH (20:23)
[2022-06-24 23:25] LABS: Calcium 10.1 mg/dL (8.6-10.3)
[2022-06-24 23:31] LABS: eGFR CKD-EPI 75.8 (>60)
[2022-06-24 23:36] LABS: Potassium 6.9 mmol/L (3.5-5.0)
[2022-06-25] MEDS ORDERED: Dextrose 50% VIAL 50 ml IV ONE (00:09)
[2022-06-25 00:16] LABS: PCO2 Arterial 28 mmHg (35-45); PO2 Arterial 105 mmHg (80-100)
[2022-06-25] MEDS ORDERED: Morphine 2 MG/ML SYRINGE ONE (00:57)
[2022-06-25] MEDS: Ondansetron 4 mg VIAL 2 MG/ML 2 ml VIAL IV PRN ×4 (01:01→21:25)
[2022-06-25 01:03] LABS: Calcium 10.9 mg/dL (8.6-10.3); Potassium 4.6 mmol/L (3.5-5.0); eGFR CKD-EPI 74.1 (>60)
[2022-06-25] MEDS ORDERED: Morphine 2 MG/ML SYRINGE IV ONE (01:13)
[2022-06-25] MEDS: Insulin Infusion 100unit/100mL 100 UNIT/100 ML BAG IV SCH (01:25)
[2022-06-25] MEDS: D5LR 20 MEQ KCL 1000 ml BAG 1,000 ML IV SCH ×2 (01:29→08:18)
[2022-06-25 07:00] LABS: Calcium 10.3 mg/dL (8.6-10.3); Magnesium 1.7 mg/dL (1.9-2.7); Phosphorus 1.5 mg/dL (2.5-5.0); Potassium 4.5 mmol/L (3.5-5.0); eGFR CKD-EPI 83.2 (>60)
[2022-06-25 07:07] LABS: ABS Basophils 0.1 10^3/ul (0-0.2); ABS Lymphocytes 1.7 10^3/ul (1.0-4.8); ABS Monocytes 1.1 10^3/ul (0-0.8); ABS Neutrophils 16.2 10^3/ul (1.5-7.7); Hematocrit 37 % (35-47); Hemoglobin 13.5 g/dL (12.0-16.0); Lymphocyte % 9.1 %; Mean Corpuscular HGB Conc 36 g/dL (31-36); Mean Corpuscular Hemoglobin 31 pg (27-31); Mean Corpuscular Volume 86 fL (80-97); Mean Platelet Volume 8.3 fL (7.4-10.4); Platelet Count 386 10^3/uL (150-450); Red Blood Count 4.31 10^6 /uL (3.70-4.87); Red Cell Distribution Width 13 % (10-15)
[2022-06-25] MEDS ORDERED: Magnesium Sulfate 2 gm BAG 2 GM/50 ML BAG IVPB ONE (07:23)
[2022-06-25 07:26] LABS: Calcium 10.2 mg/dL (8.6-10.3); Potassium 4.4 mmol/L (3.5-5.0); eGFR CKD-EPI 84.2 (>60)
[2022-06-25] MEDS ORDERED: Insulin Infusion 100unit/100mL 100 UNIT/100 ML BAG IV SCH ×3 (08:01→10:30)
[2022-06-25] MEDS: D10W IVPB SCH ×4 (08:57→22:30)
[2022-06-25] MEDS: POTASSIUM CHLORIDE IVPB SCH ×4 (08:57→22:30)
[2022-06-25] MEDS ORDERED: SODIUM CHLORIDE IV SCH (09:00)
[2022-06-25] MEDS ORDERED: [UNRECOGNIZED DRUG - OTHER] IV SCH (09:00)
[2022-06-25] MEDS ORDERED: POTASSIUM CHLORIDE IV SCH (09:00)
[2022-06-25 09:07] LABS: Calcium 10.2 mg/dL (8.6-10.3); Potassium 4.1 mmol/L (3.5-5.0); eGFR CKD-EPI 93.3 (>60)
[2022-06-25] MEDS: cefTRIAXone 1 gm/50 mL D5W 1 GM/50 ML BAG IV SCH (09:17)
[2022-06-25 09:59] LABS: Albumin 4.2 g/dL (3.2-5.2); Albumin/Globulin Ratio 1.6 (1-3); Globulin 2.6 g/dL (2-4); Potassium 4.2 mmol/L (3.5-5.0); Total Bilirubin 1.1 mg/dL (0.2-1.0); Total Protein 6.8 g/dL (6.4-8.9); eGFR CKD-EPI 101.3 (>60)
[2022-06-25 10:48] LABS: PCO2 Arterial 36 mmHg (35-45)
[2022-06-25 10:55] LABS: PO2 Arterial < 38 mmHg (80-100)
[2022-06-25 12:23] LABS: Venous Bicarbonate HCO3 17.5 mmol/L (24-28)
[2022-06-25 13:18] LABS: Calcium 9.3 mg/dL (8.6-10.3); Potassium 3.9 mmol/L (3.5-5.0); eGFR CKD-EPI 107.4 (>60)
[2022-06-25 18:55] LABS: Calcium 9.1 mg/dL (8.6-10.3); Potassium 3.6 mmol/L (3.5-5.0)
[2022-06-25] MEDS ORDERED: Dextrose 50% Syringe 50 ml 25 GM/50 ML SYRINGE IV PUSH PRN (21:16)
[2022-06-25 22:46] LABS: Calcium 9.1 mg/dL (8.6-10.3); Potassium 3.3 mmol/L (3.5-5.0); eGFR CKD-EPI 126.1 (>60)
[2022-06-25] MEDS ORDERED: Insulin GLARGINE 100 un/ml 10 ml VIAL SUBCUT ONE (23:03)
[2022-06-25] MEDS: KCL 20 MEQ/100 ML IVPREMIX 20 MEQ/100 ML BAG IV SCH (23:26)
[2022-06-26] MEDS: KCL 20 MEQ/100 ML IVPREMIX 20 MEQ/100 ML BAG IV SCH (01:26)
[2022-06-26 03:31] LABS: Calcium 8.5 mg/dL (8.6-10.3); Potassium 4.3 mmol/L (3.5-5.0); eGFR CKD-EPI 127.9 (>60)
[2022-06-26] MEDS: POTASSIUM CHLORIDE IVPB SCH (03:33)
[2022-06-26] MEDS: D10W IVPB SCH (03:33)
[2022-06-26] MEDS: Ondansetron 4 mg VIAL 2 MG/ML 2 ml VIAL IV PRN ×2 (04:10→22:02)
[2022-06-26 06:16] LABS: ABS Lymphocytes 1.6 10^3/ul (1.0-4.8); ABS Monocytes 0.7 10^3/ul (0-0.8); ABS Neutrophils 7.6 10^3/ul (1.5-7.7); Eosinophil % 0.3 %; Hematocrit 32 % (35-47); Hemoglobin 11.3 g/dL (12.0-16.0); Lymphocyte % 15.8 %; Mean Corpuscular HGB Conc 36 g/dL (31-36); Mean Corpuscular Hemoglobin 31 pg (27-31); Mean Corpuscular Volume 86 fL (80-97); Mean Platelet Volume 7.8 fL (7.4-10.4); Platelet Count 234 10^3/uL (150-450); Red Blood Count 3.72 10^6 /uL (3.70-4.87); Red Cell Distribution Width 13 % (10-15); Venous Bicarbonate HCO3 18.7 mmol/L (24-28); White Blood Count 9.9 10^3/uL (3.5-10.8)
[2022-06-26 07:10] LABS: Calcium 8.8 mg/dL (8.6-10.3); Magnesium 1.6 mg/dL (1.9-2.7); Potassium 4.4 mmol/L (3.5-5.0); eGFR CKD-EPI 128.4 (>60)
[2022-06-26] MEDS ORDERED: Potassium Acid Phos 500 mg TAB PO ONE (08:00)
[2022-06-26] MEDS ORDERED: Magnesium Sulf 4 GM/100 ML IV 4,000 MG/100 ML BAG IVPB ONE (08:00)
[2022-06-26] MEDS ORDERED: Insulin GLARGINE 100 un/ml 10 ml VIAL SUBCUT ONE ×3 (08:39→21:00)
[2022-06-26] MEDS ORDERED: Dextrose 50% Syringe 50 ml 25 GM/50 ML SYRINGE IV PUSH PRN (08:40)
[2022-06-26 08:42] LABS: Glucose Confirmatory 483 mg/dL (70-100)
[2022-06-26 08:57] LABS: Urine Benzodiazepine Screen None Detected (None Detect); Urine Cannabinoids Screen None Detected (None Detect); Urine Opiates Screen None Detected (None Detect)
[2022-06-26] MEDS: cefTRIAXone 1 gm/50 mL D5W 1 GM/50 ML BAG IV SCH (09:07)
[2022-06-27 07:27] VITALS: BP 123/73
[2022-06-27] MEDS ORDERED: Insulin GLARGINE 100 un/ml 10 ml VIAL SUBCUT SCH ×2 (09:00→21:00)
[2022-06-27 09:08] LABS: ABS Lymphocytes 2.2 10^3/ul (1.0-4.8); ABS Monocytes 0.6 10^3/ul (0-0.8); ABS Neutrophils 3.2 10^3/ul (1.5-7.7); Eosinophil % 0.7 %; Hematocrit 35 % (35-47); Hemoglobin 12.6 g/dL (12.0-16.0); Lymphocyte % 36.7 %; Mean Corpuscular HGB Conc 36 g/dL (31-36); Mean Corpuscular Hemoglobin 31 pg (27-31); Mean Corpuscular Volume 86 fL (80-97); Mean Platelet Volume 8.4 fL (7.4-10.4); Platelet Count 241 10^3/uL (150-450); Red Blood Count 4.04 10^6 /uL (3.70-4.87); Red Cell Distribution Width 12 % (10-15); White Blood Count 6.1 10^3/uL (3.5-10.8)
[2022-06-27 09:29] LABS: Magnesium 1.9 mg/dL (1.9-2.7); Phosphorus 1.8 mg/dL (2.5-5.0); Potassium 4.4 mmol/L (3.5-5.0); eGFR CKD-EPI 134.2 (>60)
[2022-06-27] MEDS ORDERED: Insulin GLARGINE 100 un/ml 10 ml VIAL SUBCUT ONE (10:22)
[2022-06-27] MEDS: cefTRIAXone 1 gm/50 mL D5W 1 GM/50 ML BAG IV SCH (11:04)
== END 2022-06-27 10:50 | disposition left against medical advice (07) | DRG 420 ==
LOC: ED 13:46 → SUATTDRO 16:19 → EDHOLD 16:19 → ICU 17:01 → MED 06-26 12:36
PROVIDERS: ADMIT Internal Medicine; ATTEND Internal Medicine

== ENCOUNTER 2022-07-13 20:51 | Inpatient (IN) ==
[2022-07-13] MEDS ORDERED: NS 0.9% 1000 ml BAG 1,000 ML IV ONE ×2 (21:33→21:34)
[2022-07-13] MEDS ORDERED: Ondansetron 4 mg VIAL 2 MG/ML 2 ml VIAL IV ONE (21:35)
[2022-07-13 21:53] LABS: ABS Basophils 0.1 10^3/ul (0-0.2); ABS Lymphocytes 2.2 10^3/ul (1.0-4.8); ABS Monocytes 0.8 10^3/ul (0-0.8); ABS Neutrophils 10.1 10^3/ul (1.5-7.7); Hematocrit 40 % (35-47); Hemoglobin 13.3 g/dL (12.0-16.0); Lymphocyte % 16.9 %; Mean Corpuscular HGB Conc 33 g/dL (31-36); Mean Corpuscular Hemoglobin 31 pg (27-31); Mean Corpuscular Volume 92 fL (80-97); Mean Platelet Volume 8.8 fL (7.4-10.4); Platelet Count 265 10^3/uL (150-450); Red Blood Count 4.36 10^6 /uL (3.70-4.87); Red Cell Distribution Width 14 % (10-15); White Blood Count 13.2 10^3/uL (3.5-10.8)
[2022-07-13 22:14] LABS: High Sens Troponin Baseline < 3 pg/mL (<15)
[2022-07-13 22:24] LABS: ALT 13 U/L (7-52); AST 10 U/L (13-39); Albumin 4.5 g/dL (3.2-5.2); Albumin/Globulin Ratio 1.6 (1-3); Alkaline Phosphatase 88 U/L (35-149); Blood Urea Nitrogen 21 mg/dL (6-24); Calcium 9.3 mg/dL (8.6-10.3); Chloride 98 mmol/L (101-111); Creatine Kinase 85 U/L (10-223); Globulin 2.9 g/dL (2-4); Glucose 498 mg/dL (70-100); Phosphorus 3.7 mg/dL (2.5-5.0); Potassium 4.7 mmol/L (3.5-5.0); Sodium 133 mmol/L (135-145); Total Protein 7.4 g/dL (6.4-8.9); eGFR CKD-EPI 99.9 (>60)
[2022-07-13 22:26] LABS: Anion Gap 27 mmol/L (2-11); CO2 Carbon Dioxide 8 mmol/L (22-32)
[2022-07-13] MEDS ORDERED: Dextrose 50% Syringe 50 ml 25 GM/50 ML SYRINGE IV PUSH PRN (22:28)
[2022-07-13] MEDS ORDERED: NORMOSOL-R pH 7.4 1000 mL BAG 1,000 ML IV ONE (22:28)
[2022-07-13 22:30] LABS: HCG Pregnancy < 0.60 mIU/mL
[2022-07-13 22:39] LABS: TSH Ultra Thyroid Stim Horm 2.85 mcIU/mL (0.34-5.60)
[2022-07-13] MEDS ORDERED: Insulin Infusion 100unit/100mL 100 UNIT/100 ML BAG IV SCH (23:00)
[2022-07-13] MEDS ORDERED: Dextrose 50% Syringe 50 ml 25 GM/50 ML SYRINGE IV PUSH ONE (23:18)
[2022-07-13 23:36] LABS: High Sensitivity Troponin 1 Hr < 3 pg/mL (<15)
[2022-07-13] MEDS: Prochlorperazine 5 mg/ml 2 ml VIAL (10 mg) IV PRN (23:39)
[2022-07-13] MEDS ORDERED: NORMOSOL-R pH 7.4 1000 mL BAG 1,000 ML IV SCH (23:45)
[2022-07-14 00:19] LABS: Glucose Confirmatory 452 mg/dL (70-100)
[2022-07-14 00:46] LABS: PO2 Arterial 135 mmHg (80-100)
[2022-07-14 00:58] LABS: PCO2 Arterial <20 mmHg (35-45)
[2022-07-14] MEDS ORDERED: Piperacillin/Tazobac ADVAN 3.375 GM in NS 0.9% 100 ml BAG 100 ML IV ONE (01:21)
[2022-07-14] MEDS: D5W 1/2 NS 1000 ml BAG 1,000 ML IV SCH ×3 (01:24→14:36)
[2022-07-14] MEDS ORDERED: Zosyn per Pharmacy NOTE FOLLOW UP SCH (02:00)
[2022-07-14 02:15] LABS: ABS Basophils 0.1 10^3/ul (0-0.2); ABS Lymphocytes 1.6 10^3/ul (1.0-4.8); ABS Monocytes 0.5 10^3/ul (0-0.8); ABS Neutrophils 11.7 10^3/ul (1.5-7.7); Hematocrit 41 % (35-47); Hemoglobin 13.6 g/dL (12.0-16.0); Lymphocyte % 11.3 %; Mean Corpuscular HGB Conc 33 g/dL (31-36); Mean Corpuscular Hemoglobin 30 pg (27-31); Mean Corpuscular Volume 89 fL (80-97); Mean Platelet Volume 8.3 fL (7.4-10.4); Nucleated Red Blood Cells % 0.1; Platelet Count 273 10^3/uL (150-450); Red Cell Distribution Width 14 % (10-15)
[2022-07-14 02:45] LABS: Calcium 8.5 mg/dL (8.6-10.3); Magnesium 1.8 mg/dL (1.9-2.7); eGFR CKD-EPI 121.9 (>60)
[2022-07-14] MEDS ORDERED: Magnesium Sulfate 2 gm BAG 2 GM/50 ML BAG IVPB ONE ×2 (02:53→14:37)
[2022-07-14] MEDS ORDERED: Insulin Infusion 100unit/100mL 100 UNIT/100 ML BAG IV SCH (03:08)
[2022-07-14 04:47] LABS: Urine Appearance Clear; Urine Bilirubin 1+ (Small) (Negative); Urine Blood Negative (Negative); Urine Color Yellow; Urine Glucose 2+ (500mg/dL) (Negative); Urine Ketones 4+ (>=160mg/dL) (Negative); Urine Nitrite Negative (Negative); Urine Protein 1+ (30 mg/dL) (Negative); Urine Specific Gravity 1.028 (1.002-1.030); Urine Urobilinogen 0.2 (Negative) (Negative); Urine pH 5.5 (5.0-9.0)
[2022-07-14 05:01] LABS: Urine Benzodiazepine Screen None Detected (None Detect); Urine Cannabinoids Screen None Detected (None Detect); Urine Opiates Screen None Detected (None Detect)
[2022-07-14 05:10] LABS: Urine Bacteria Absent (Absent); Urine Red Blood Cell 1+(3-5/hpf) (Absent); Urine Squamous Epithelial Cell Present (Absent); Urine White Blood Cell Trace(0-5/hpf) (Absent)
[2022-07-14] MEDS: ZOSYN 3.375 GM Q8H per EXTENDED INFUSION IV SCH ×3 (07:45→20:15)
[2022-07-14] MEDS ORDERED: Dextrose 50% Syringe 50 ml 25 GM/50 ML SYRINGE IV PUSH PRN ×2 (08:41→20:33)
[2022-07-14 08:55] LABS: Calcium 8.5 mg/dL (8.6-10.3); Potassium 3.7 mmol/L (3.5-5.0); eGFR CKD-EPI 127.9 (>60)
[2022-07-14] MEDS: D10W IV PRN ×2 (13:08→15:02)
[2022-07-14] MEDS ORDERED: Vancomycin 1,000 MG in NS 0.9% 250 ml 250 ML IVPB ONE (13:10)
[2022-07-14 13:26] LABS: Calcium 8.5 mg/dL (8.6-10.3); Magnesium 1.8 mg/dL (1.9-2.7); Phosphorus 1.6 mg/dL (2.5-5.0); Potassium 3.3 mmol/L (3.5-5.0); eGFR CKD-EPI 128.4 (>60)
[2022-07-14 13:57] LABS: Magnesium 2.3 mg/dL (1.9-2.7)
[2022-07-14] MEDS ORDERED: Vancomycin per Pharmacy 1 EA NOTE FOLLOW UP SCH (14:00)
[2022-07-14 14:03] LABS: Phosphorus 2.4 mg/dL (2.5-5.0)
[2022-07-14] MEDS ORDERED: Insulin GLARGINE 100 un/ml 10 ml VIAL SUBCUT ONE ×2 (14:08→20:33)
[2022-07-14] MEDS ORDERED: Insulin GLARGINE 100 un/ml 10 ml VIAL ONE (14:26)
[2022-07-14] MEDS ORDERED: KCL 20 MEQ/100 ML IVPREMIX 20 MEQ/100 ML BAG ONE (14:27)
[2022-07-14] MEDS: KCL 20 MEQ/100 ML IVPREMIX 20 MEQ/100 ML BAG IV SCH ×3 (14:30→20:16)
[2022-07-14] MEDS ORDERED: D5W 1/2 NS 40 Meq KCL 1000 ml 1,000 ML IV SCH ×2 (15:00→18:09)
[2022-07-14 16:49] LABS: Calcium 7.5 mg/dL (8.6-10.3); Phosphorus 1.6 mg/dL (2.5-5.0); Potassium 3.5 mmol/L (3.5-5.0); eGFR CKD-EPI 135.5 (>60)
[2022-07-14] MEDS: Nicotine PATCH 21 MG/24 HR PATCH TRANSDERM SCH (17:53)
[2022-07-14] MEDS ORDERED: Potassium Phosphate IV 15 MMOLE in NS 0.9% 250 ml 250 ML IVPB ONE (18:00)
[2022-07-14 20:32] LABS: Calcium 7.2 mg/dL (8.6-10.3); Magnesium 1.9 mg/dL (1.9-2.7); Phosphorus 2.1 mg/dL (2.5-5.0); Potassium 3.8 mmol/L (3.5-5.0); eGFR CKD-EPI 134.2 (>60)
[2022-07-14] MEDS: Lidocaine PATCH 5% PATCH TRANSDERM SCH (21:42)
[2022-07-14 22:24] LABS: Glucose Confirmatory 413 mg/dL (70-100)
[2022-07-14] MEDS: Vancomycin 1,250 MG in NS 0.9% 250 ml 250 ML IVPB SCH (23:19)
[2022-07-15] MEDS ORDERED: Dextrose 50% Syringe 50 ml 25 GM/50 ML SYRINGE IV PUSH PRN ×2 (00:03→10:45)
[2022-07-15] MEDS ORDERED: D5W 1/2 NS KCl 20 meq 1000 ml 1,000 ML IV SCH (03:00)
[2022-07-15 04:42] LABS: ABS Basophils 0.1 10^3/ul (0-0.2); ABS Eosinophils 0.1 10^3/ul (0-0.6); ABS Monocytes 0.6 10^3/ul (0-0.8); ABS Neutrophils 6.5 10^3/ul (1.5-7.7); Hematocrit 36 % (35-47); Hemoglobin 12.6 g/dL (12.0-16.0); Lymphocyte % 21.3 %; Mean Corpuscular HGB Conc 35 g/dL (31-36); Mean Corpuscular Hemoglobin 31 pg (27-31); Mean Corpuscular Volume 87 fL (80-97); Mean Platelet Volume 8.1 fL (7.4-10.4); Platelet Count 265 10^3/uL (150-450); Red Blood Count 4.13 10^6 /uL (3.70-4.87); Red Cell Distribution Width 15 % (10-15); White Blood Count 9.3 10^3/uL (3.5-10.8)
[2022-07-15] MEDS: ZOSYN 3.375 GM Q8H per EXTENDED INFUSION IV SCH (05:18)
[2022-07-15 05:21] LABS: Calcium 8.5 mg/dL (8.6-10.3); Magnesium 1.9 mg/dL (1.9-2.7); eGFR CKD-EPI 133.7 (>60)
[2022-07-15] MEDS: Vancomycin 1,250 MG in NS 0.9% 250 ml 250 ML IVPB SCH (05:22)
[2022-07-15] MEDS: Lidocaine PATCH 5% PATCH TRANSDERM SCH (07:41)
[2022-07-15] MEDS: Nicotine PATCH 21 MG/24 HR PATCH TRANSDERM SCH (07:42)
[2022-07-15] MEDS: cefTRIAXone 2 gm/50 mL D5W 2 GM/50 ML BAG IV SCH ×2 (09:32→21:18)
[2022-07-15] MEDS ORDERED: Lidocaine 4% CREAM (LMX) 5 GM TUBE TOPICAL PRN (11:33)
[2022-07-15 12:18] LABS: Calcium 8.5 mg/dL (8.6-10.3); Magnesium 1.8 mg/dL (1.9-2.7)
[2022-07-15 12:24] LABS: Phosphorus 2.3 mg/dL (2.5-5.0); eGFR CKD-EPI 128.9 (>60)
[2022-07-15] MEDS: Prochlorperazine 5 mg/ml 2 ml VIAL (10 mg) IV PRN (13:06)
[2022-07-15] MEDS ORDERED: oxyCODONE/Acetamin 5/325 mg TAB PO ONE (13:11)
[2022-07-15] MEDS ORDERED: Vancomycin Trough Check NOTE FOLLOW UP ONE (13:30)
[2022-07-15] MEDS ORDERED: Buffered Lidocaine 1% SYRIN 1 ml INTRADERM ONE (17:02)
[2022-07-15] MEDS ORDERED: Lactated Ringers 1000 ml BAG 1,000 ML IV SCH (18:00)
[2022-07-15] MEDS ORDERED: Potassium Phosphate IV 10 MMOLE in NS 0.9% 250 ml 250 ML IVPB ONE (19:15)
[2022-07-16 05:24] LABS: ABS Basophils 0.1 10^3/ul (0-0.2); ABS Eosinophils 0.1 10^3/ul (0-0.6); ABS Lymphocytes 2.9 10^3/ul (1.0-4.8); ABS Monocytes 0.4 10^3/ul (0-0.8); ABS Neutrophils 2.2 10^3/ul (1.5-7.7); Hematocrit 34 % (35-47); Hemoglobin 11.7 g/dL (12.0-16.0); Lymphocyte % 51.7 %; Mean Corpuscular HGB Conc 34 g/dL (31-36); Mean Corpuscular Hemoglobin 30 pg (27-31); Mean Corpuscular Volume 88 fL (80-97); Nucleated Red Blood Cells % 0.1; Platelet Count 197 10^3/uL (150-450); Red Blood Count 3.89 10^6 /uL (3.70-4.87); Red Cell Distribution Width 14 % (10-15); White Blood Count 5.6 10^3/uL (3.5-10.8)
[2022-07-16 05:52] LABS: Calcium 8.4 mg/dL (8.6-10.3); Potassium 3.8 mmol/L (3.5-5.0)
[2022-07-16] MEDS ORDERED: Midazolam 2 mg/2 ml VIAL 1 mg/ml 2 ml VIAL (2 mg) ONE (07:07)
[2022-07-16] MEDS ORDERED: Insulin GLARGINE 100 un/ml 10 ml VIAL SUBCUT SCH ×3 (09:00)
[2022-07-16] MEDS: cefTRIAXone 2 gm/50 mL D5W 2 GM/50 ML BAG IV SCH (09:45)
[2022-07-16] MEDS: Lidocaine PATCH 5% PATCH TRANSDERM SCH (09:54)
[2022-07-16] MEDS: Nicotine PATCH 21 MG/24 HR PATCH TRANSDERM SCH (09:56)
[2022-07-16] MEDS ORDERED: DALBAVANCIN HCL (NF) 500 MG/25 ML VIAL IVPB ONE (12:00)
[2022-07-16] MEDS ORDERED: DALVANCE 1500 MG IV ONCE (for CrCl >/= 30 or regular HD) IVPB ONE (12:00)
[2022-07-16 12:54] VITALS: BP 107/67
[2022-07-16] MEDS ORDERED: Propofol 10 MG/ML 50 ML BTL ONE (13:00)
== END 2022-07-16 13:20 | disposition left against medical advice (07) | DRG 420 ==
LOC: ED 20:51 → EDHOLD 23:19 → ICU 07-14 00:33
PROVIDERS: ADMIT Internal Medicine; ATTEND Internal Medicine
PROC: O.CATEE (2022-07-16 08:00)

== ENCOUNTER 2022-08-08 10:39 | Inpatient (IN) ==
[2022-08-08] MEDS ORDERED: Dextrose 50% Syringe 50 ml 25 GM/50 ML SYRINGE IV PUSH PRN (10:43)
[2022-08-08] MEDS ORDERED: NORMOSOL-R pH 7.4 1000 mL BAG 1,000 ML IV ONE (10:43)
[2022-08-08] MEDS ORDERED: Vancomycin 1,500 MG in NS 0.9% 250 ml 250 ML IVPB ONE (10:52)
[2022-08-08] MEDS ORDERED: Lactated Ringers 1000 ml BAG 1,000 ML IV ONE ×2 (10:53→11:58)
[2022-08-08 11:16] LABS: Urine Appearance Cloudy; Urine Bilirubin Negative (Negative); Urine Blood 1+ (Negative); Urine Color Yellow; Urine Glucose 3+(>=500 mg/dL) (Negative); Urine Ketones 2+ (Negative); Urine Nitrite Negative (Negative); Urine Protein 2+(100 mg/dL) (Negative); Urine Specific Gravity 1.023 (1.002-1.030); Urine Urobilinogen Negative (Negative)
[2022-08-08 11:17] LABS: ABS Neutrophils 36.6 10^3/ul (1.5-7.7); Hematocrit 48 % (35-47); Hemoglobin 14.2 g/dL (12.0-16.0); Mean Corpuscular HGB Conc 30 g/dL (31-36); Mean Corpuscular Hemoglobin 30 pg (27-31); Mean Corpuscular Volume 102 fL (80-97); Mean Platelet Volume 9.4 fL (7.4-10.4); Platelet Count 466 10^3/uL (150-450); Red Blood Count 4.69 10^6 /uL (3.70-4.87); Red Cell Distribution Width 15 % (10-15); White Blood Count 48.4 10^3/uL (3.5-10.8)
[2022-08-08 11:26] LABS: Urine Red Blood Cell 1+(3-5/hpf) (Absent); Urine Squamous Epithelial Cell Present (Absent); Urine White Blood Cell Trace(0-5/hpf) (Absent)
[2022-08-08 11:33] LABS: High Sens Troponin Baseline 25 pg/mL (<15)
[2022-08-08 11:40] LABS: ALT 27 U/L (7-52); AST 23 U/L (13-39); Albumin 4.1 g/dL (3.2-5.2); Albumin/Globulin Ratio 1.5 (1-3); Alkaline Phosphatase 123 U/L (35-149); Blood Urea Nitrogen 55 mg/dL (6-24); Calcium 9.3 mg/dL (8.6-10.3); Chloride 90 mmol/L (101-111); Creatine Kinase 80 U/L (10-223); Globulin 2.7 g/dL (2-4); Magnesium 3.3 mg/dL (1.9-2.7); Phosphorus 14.5 mg/dL (2.5-5.0); Sodium 130 mmol/L (135-145); Total Protein 6.8 g/dL (6.4-8.9); eGFR CKD-EPI 35.1 (>60)
[2022-08-08 11:53] LABS: Potassium 5.3 mmol/L (3.5-5.0); TSH Ultra Thyroid Stim Horm 1.79 mcIU/mL (0.34-5.60)
[2022-08-08 11:57] LABS: CO2 Carbon Dioxide < 7 mmol/L (22-32); Glucose 1223 mg/dL (70-100)
[2022-08-08] MEDS ORDERED: Dextrose 50% Syringe 50 ml 25 GM/50 ML SYRINGE IV PUSH ONE (11:58)
[2022-08-08] MEDS ORDERED: Lactated Ringers 1000 ml BAG 1,000 ML IV SCH (12:00)
[2022-08-08] MEDS ORDERED: NORMOSOL-R pH 7.4 1000 mL BAG 1,000 ML IV SCH (12:00)
[2022-08-08 12:10] LABS: RBC Morphology Normal (Normal)
[2022-08-08 12:11] LABS: ABS Basophils 0.3 10^3/ul (0-0.2); ABS Eosinophils 0.2 10^3/ul (0-0.6); ABS Lymphocytes 8.3 10^3/ul (1.0-4.8); ABS Monocytes 2.9 10^3/ul (0-0.8); Eosinophil % 0.5 %; Lymphocyte % 17.1 %; Nucleated Red Blood Cells % 0.1
[2022-08-08 12:29] LABS: High Sensitivity Troponin 1 Hr 20 pg/mL (<15)
[2022-08-08] MEDS: Insulin Infusion 100unit/100mL 100 UNIT/100 ML BAG IV SCH (12:36)
[2022-08-08 12:41] LABS: C Reactive Protein 2.17 mg/L (<8.01)
[2022-08-08 12:59] LABS: Urine Bacteria Absent (Absent)
[2022-08-08] MEDS ORDERED: Pantoprazole VIAL 40 MG VIAL IV SCH (13:00)
[2022-08-08] MEDS: cefTRIAXone 2 gm/50 mL D5W 2 GM/50 ML BAG IV SCH ×2 (13:04→21:11)
[2022-08-08 14:17] LABS: Erythrocyte Sed Rate 4 mm/Hr (0-19)
[2022-08-08 15:07] LABS: Urine Benzodiazepine Screen None Detected (None Detect); Urine Cannabinoids Screen None Detected (None Detect); Urine Opiates Screen None Detected (None Detect)
[2022-08-08 15:10] LABS: Urine Creatinine Concentration 20.41 mg/dL
[2022-08-08 15:48] LABS: Blood Urea Nitrogen 50 mg/dL (6-24); Calcium 9.2 mg/dL (8.6-10.3); Chloride 98 mmol/L (101-111); Magnesium 2.6 mg/dL (1.9-2.7); Sodium 134 mmol/L (135-145); eGFR CKD-EPI 47.1 (>60)
[2022-08-08 15:50] LABS: Phosphorus 7.9 mg/dL (2.5-5.0); Potassium 4.1 mmol/L (3.5-5.0)
[2022-08-08 15:52] LABS: CO2 Carbon Dioxide < 7 mmol/L (22-32); Glucose 745 mg/dL (70-100)
[2022-08-08 16:16] LABS: Glucose Confirmatory 484 mg/dL (70-100)
[2022-08-08 18:47] LABS: Hematocrit 40 % (35-47); Hemoglobin 13.8 g/dL (12.0-16.0)
[2022-08-08] MEDS: D5W 1/2 NS KCl 20 meq 1000 ml 1,000 ML IV SCH (18:50)
[2022-08-08 19:16] LABS: Calcium 8.7 mg/dL (8.6-10.3); eGFR CKD-EPI 73.3 (>60)
[2022-08-08 19:34] LABS: Phosphorus 2.8 mg/dL (2.5-5.0); Potassium 3.8 mmol/L (3.5-5.0)
[2022-08-08] MEDS: Pantoprazole VIAL 40 MG VIAL IV SCH (20:19)
[2022-08-08 23:26] LABS: Hematocrit 37 % (35-47); Hemoglobin 12.7 g/dL (12.0-16.0)
[2022-08-08 23:43] LABS: Calcium 8.8 mg/dL (8.6-10.3); Magnesium 1.8 mg/dL (1.9-2.7); Phosphorus 2.9 mg/dL (2.5-5.0); Potassium 4.2 mmol/L (3.5-5.0); eGFR CKD-EPI 79.3 (>60)
[2022-08-09] MEDS: D5W 1/2 NS KCl 20 meq 1000 ml 1,000 ML IV SCH (03:22)
[2022-08-09 04:04] LABS: Calcium 6.7 mg/dL (8.6-10.3); Magnesium 1.3 mg/dL (1.9-2.7); Potassium 3.2 mmol/L (3.5-5.0)
[2022-08-09 04:10] LABS: Phosphorus 1.9 mg/dL (2.5-5.0); eGFR CKD-EPI 132.5 (>60)
[2022-08-09] MEDS ORDERED: Magnesium Sulf 4 GM/100 ML IV 4,000 MG/100 ML BAG IVPB ONE (05:33)
[2022-08-09 05:37] LABS: ABS Lymphocytes 0.9 10^3/ul (1.0-4.8); ABS Monocytes 1.1 10^3/ul (0-0.8); ABS Neutrophils 15.1 10^3/ul (1.5-7.7); Eosinophil % 0.2 %; Hematocrit 37 % (35-47); Hemoglobin 12.4 g/dL (12.0-16.0); Lymphocyte % 5.3 %; Mean Corpuscular HGB Conc 34 g/dL (31-36); Mean Corpuscular Hemoglobin 30 pg (27-31); Mean Corpuscular Volume 89 fL (80-97); Platelet Count 245 10^3/uL (150-450); Red Blood Count 4.13 10^6 /uL (3.70-4.87); Red Cell Distribution Width 15 % (10-15); White Blood Count 17.2 10^3/uL (3.5-10.8)
[2022-08-09] MEDS ORDERED: D5W 1/2 NS 40 Meq KCL 1000 ml 1,000 ML IV SCH ×2 (06:00→10:08)
[2022-08-09 06:27] LABS: Magnesium 1.2 mg/dL (1.9-2.7); Phosphorus 1.9 mg/dL (2.5-5.0); Potassium 2.8 mmol/L (3.5-5.0); eGFR CKD-EPI 140.3 (>60)
[2022-08-09 06:45] LABS: Calcium 5.6 mg/dL (8.6-10.3)
[2022-08-09] MEDS ORDERED: Potassium Phosphate IV 15 MMOLE in NS 0.9% 250 ml 250 ML IVPB ONE (06:48)
[2022-08-09] MEDS: cefTRIAXone 2 gm/50 mL D5W 2 GM/50 ML BAG IV SCH ×2 (10:15→20:57)
[2022-08-09] MEDS: Pantoprazole VIAL 40 MG VIAL IV SCH ×2 (10:15→20:57)
[2022-08-09 10:18] LABS: Calcium 8.9 mg/dL (8.6-10.3); Potassium 3.9 mmol/L (3.5-5.0); eGFR CKD-EPI 99.9 (>60)
[2022-08-09] MEDS ORDERED: KCL 20 MEQ/100 ML IVPREMIX 20 MEQ/100 ML BAG IV ONE (10:38)
[2022-08-09] MEDS: KCL 20 MEQ/100 ML IVPREMIX 20 MEQ/100 ML BAG IV SCH (10:50)
[2022-08-09 14:17] LABS: Calcium 8.5 mg/dL (8.6-10.3); Potassium 4.2 mmol/L (3.5-5.0); eGFR CKD-EPI 114.3 (>60)
[2022-08-09] MEDS: Insulin Infusion 100unit/100mL 100 UNIT/100 ML BAG IV SCH (15:11)
[2022-08-09] MEDS ORDERED: Insulin GLARGINE 100 un/ml 10 ml VIAL SUBCUT ONE (15:43)
[2022-08-09] MEDS ORDERED: Dextrose 50% Syringe 50 ml 25 GM/50 ML SYRINGE IV PUSH PRN ×2 (15:44→22:14)
[2022-08-09] MEDS ORDERED: Insulin GLARGINE 100 un/ml 10 ml VIAL ONE (15:59)
[2022-08-09 16:30] LABS: Magnesium 2.4 mg/dL (1.9-2.7)
[2022-08-09 18:18] LABS: eGFR CKD-EPI 119.9 (>60)
[2022-08-09 18:45] LABS: Potassium 4.2 mmol/L (3.5-5.0)
[2022-08-09 21:33] LABS: Calcium 8.3 mg/dL (8.6-10.3); Potassium 3.9 mmol/L (3.5-5.0); eGFR CKD-EPI 127.9 (>60)
[2022-08-10] MEDS ORDERED: Dextrose 50% Syringe 50 ml 25 GM/50 ML SYRINGE IV PUSH PRN (03:16)
[2022-08-10] MEDS: Pantoprazole VIAL 40 MG VIAL IV SCH (09:59)
[2022-08-10] MEDS: cefTRIAXone 2 gm/50 mL D5W 2 GM/50 ML BAG IV SCH (09:59)
[2022-08-10 11:47] LABS: ABS Lymphocytes 1.7 10^3/ul (1.0-4.8); ABS Monocytes 0.4 10^3/ul (0-0.8); ABS Neutrophils 5.8 10^3/ul (1.5-7.7); Eosinophil % 0.2 %; Hematocrit 34 % (35-47); Hemoglobin 11.4 g/dL (12.0-16.0); Lymphocyte % 21.3 %; Mean Corpuscular HGB Conc 34 g/dL (31-36); Mean Corpuscular Hemoglobin 30 pg (27-31); Mean Corpuscular Volume 88 fL (80-97); Mean Platelet Volume 7.9 fL (7.4-10.4); Nucleated Red Blood Cells % 0.1; Platelet Count 184 10^3/uL (150-450); Red Blood Count 3.86 10^6 /uL (3.70-4.87); Red Cell Distribution Width 15 % (10-15)
[2022-08-10 11:56] VITALS: BP 149/81
[2022-08-10 12:20] LABS: Glucose Confirmatory 440 mg/dL (70-100)
[2022-08-10 12:32] LABS: Calcium 8.5 mg/dL (8.6-10.3); Magnesium 1.9 mg/dL (1.9-2.7); Phosphorus 1.8 mg/dL (2.5-5.0); eGFR CKD-EPI 133.1 (>60)
[2022-08-10] MEDS ORDERED: Insulin GLARGINE 100 un/ml 10 ml VIAL SUBCUT SCH ×2 (21:00)
== END 2022-08-10 20:35 | disposition left against medical advice (07) | DRG 720 ==
LOC: ED 10:39 → EDHOLD 11:55 → ICU 20:02 → MEDTELE 08-10 08:20
PROVIDERS: ADMIT Internal Medicine Critical Care Medicine; ATTEND Internal Medicine Critical Care Medicine

== ENCOUNTER 2022-09-17 06:09 | Inpatient (IN) ==
[2022-09-17] MEDS ORDERED: NS 0.9% 1000 ml BAG 2,000 ML IV ONE (06:35)
[2022-09-17] MEDS ORDERED: NS 0.9% 1000 ml BAG 1,000 ML IV ONE (06:44)
[2022-09-17] MEDS ORDERED: NORMOSOL-R pH 7.4 1000 mL BAG 1,000 ML IV SCH ×4 (07:00→10:00)
[2022-09-17] MEDS ORDERED: NORMOSOL-R pH 7.4 1000 mL BAG 1,000 ML IV ONE (07:00)
[2022-09-17 07:01] LABS: ABS Basophils 0.1 10^3/ul (0-0.2); ABS Lymphocytes 1.7 10^3/ul (1.0-4.8); ABS Monocytes 0.4 10^3/ul (0-0.8); Eosinophil % 0.1 %; Hematocrit 48 % (35-47); Hemoglobin 15.9 g/dL (12.0-16.0); Lymphocyte % 11.1 %; Mean Corpuscular HGB Conc 34 g/dL (31-36); Mean Corpuscular Hemoglobin 31 pg (27-31); Mean Corpuscular Volume 92 fL (80-97); Mean Platelet Volume 8.4 fL (7.4-10.4); Platelet Count 473 10^3/uL (150-450); Red Blood Count 5.15 10^6 /uL (3.70-4.87); Red Cell Distribution Width 14 % (10-15); White Blood Count 15.1 10^3/uL (3.5-10.8)
[2022-09-17 07:01] LABS: Venous Bicarbonate HCO3 9.6 mmol/L (24-28)
[2022-09-17] MEDS ORDERED: Dextrose 50% Syringe 50 ml 25 GM/50 ML SYRINGE IV PUSH PRN ×2 (07:08→08:29)
[2022-09-17] MEDS ORDERED: Lactated Ringers 1000 ml BAG 1,000 ML IV ONE ×2 (07:28→08:29)
[2022-09-17 07:58] LABS: ALT 19 U/L (7-52); AST 15 U/L (13-39); Albumin 4.7 g/dL (3.2-5.2); Albumin/Globulin Ratio 1.3 (1-3); Alcohol, S < 13 mg/dL (<13); Alkaline Phosphatase 109 U/L (35-149); Blood Urea Nitrogen 22 mg/dL (6-24); C Reactive Protein 10.36 mg/L (<8.01); Calcium 10.2 mg/dL (8.6-10.3); Chloride 92 mmol/L (101-111); Creatine Kinase 85 U/L (10-223); Globulin 3.7 g/dL (2-4); Phosphorus 3.7 mg/dL (2.5-5.0); Potassium 4.8 mmol/L (3.5-5.0); Sodium 130 mmol/L (135-145); Total Protein 8.4 g/dL (6.4-8.9); eGFR CKD-EPI 90.8 (>60)
[2022-09-17] MEDS ORDERED: Insulin Infusion 100unit/100mL 100 UNIT/100 ML BAG IV SCH ×2 (08:00→09:00)
[2022-09-17 08:04] LABS: Anion Gap 28 mmol/L (2-11); CO2 Carbon Dioxide 10 mmol/L (22-32); Glucose 517 mg/dL (70-100)
[2022-09-17 08:10] LABS: PO2 Arterial 130 mmHg (80-100)
[2022-09-17 08:17] LABS: PCO2 Arterial <20 mmHg (35-45)
[2022-09-17] MEDS ORDERED: Acetaminophen IV 1 GM/100ML 1,000 MG/100 ML BAG IV PRN (08:29)
[2022-09-17] MEDS ORDERED: D5W 1/2 NS 1000 ml BAG 1,000 ML IV SCH ×2 (09:00)
[2022-09-17] MEDS ORDERED: Ondansetron 4 mg VIAL 2 MG/ML 2 ml VIAL ONE (09:05)
[2022-09-17] MEDS ORDERED: Ondansetron 4 mg VIAL 2 MG/ML 2 ml VIAL IV ONE (09:07)
[2022-09-17 09:16] LABS: HCG Pregnancy < 0.60 mIU/mL
[2022-09-17] MEDS ORDERED: Ondansetron 4 mg VIAL 2 MG/ML 2 ml VIAL IV PRN (09:25)
[2022-09-17 10:44] LABS: Glucose Confirmatory 423 mg/dL (70-100)
[2022-09-17] MEDS: Pantoprazole VIAL 40 MG VIAL IV SCH (10:44)
[2022-09-17 11:40] LABS: TSH Ultra Thyroid Stim Horm 0.71 mcIU/mL (0.34-5.60)
[2022-09-17 11:55] LABS: Blood Urea Nitrogen 20 mg/dL (6-24); Calcium 8.9 mg/dL (8.6-10.3); Chloride 97 mmol/L (101-111); Glucose 414 mg/dL (70-100); Phosphorus 3.8 mg/dL (2.5-5.0); Potassium 4.4 mmol/L (3.5-5.0); Sodium 136 mmol/L (135-145); eGFR CKD-EPI 109.1 (>60)
[2022-09-17 12:00] LABS: CO2 Carbon Dioxide < 7 mmol/L (22-32)
[2022-09-17] MEDS: D5W 1/2 NS KCl 20 meq 1000 ml 1,000 ML IV SCH ×2 (12:49→20:25)
[2022-09-17 15:06] LABS: Calcium 8.7 mg/dL (8.6-10.3); Magnesium 1.7 mg/dL (1.9-2.7); Phosphorus 2.6 mg/dL (2.5-5.0); Potassium 4.3 mmol/L (3.5-5.0); eGFR CKD-EPI 126.1 (>60)
[2022-09-17] MEDS ORDERED: Magnesium Sulfate 2 gm BAG 2 GM/50 ML BAG IVPB ONE (15:35)
[2022-09-17 18:18] LABS: Calcium 8.5 mg/dL (8.6-10.3); Magnesium 2.2 mg/dL (1.9-2.7); Phosphorus 2.4 mg/dL (2.5-5.0); Potassium 4.3 mmol/L (3.5-5.0)
[2022-09-17 18:55] LABS: Osmolality Serum 299 mOsm/kg (275-295)
[2022-09-17 23:06] LABS: Calcium 8.4 mg/dL (8.6-10.3); Magnesium 1.8 mg/dL (1.9-2.7); Phosphorus 2.2 mg/dL (2.5-5.0); Potassium 4.2 mmol/L (3.5-5.0); eGFR CKD-EPI 131.4 (>60)
[2022-09-18] MEDS ORDERED: Potassium Phosphate IV 15 MMOLE in NS 0.9% 250 ml 250 ML IVPB ONE (00:23)
[2022-09-18 03:39] LABS: Calcium 8.6 mg/dL (8.6-10.3); Magnesium 1.7 mg/dL (1.9-2.7); Phosphorus 2.4 mg/dL (2.5-5.0); Potassium 3.8 mmol/L (3.5-5.0); eGFR CKD-EPI 133.1 (>60)
[2022-09-18] MEDS ORDERED: Insulin GLARGINE 100 un/ml 10 ml VIAL SUBCUT ONE (04:00)
[2022-09-18] MEDS: D5W 1/2 NS KCl 20 meq 1000 ml 1,000 ML IV SCH (04:06)
[2022-09-18 04:56] LABS: ABS Basophils 0.1 10^3/ul (0-0.2); ABS Eosinophils 0.2 10^3/ul (0-0.6); ABS Lymphocytes 2.9 10^3/ul (1.0-4.8); ABS Monocytes 0.7 10^3/ul (0-0.8); ABS Neutrophils 6.5 10^3/ul (1.5-7.7); Eosinophil % 1.5 %; Hematocrit 36 % (35-47); Hemoglobin 12.3 g/dL (12.0-16.0); Mean Corpuscular HGB Conc 35 g/dL (31-36); Mean Corpuscular Hemoglobin 31 pg (27-31); Mean Corpuscular Volume 90 fL (80-97); Mean Platelet Volume 7.6 fL (7.4-10.4); Platelet Count 352 10^3/uL (150-450); Red Blood Count 3.96 10^6 /uL (3.70-4.87); Red Cell Distribution Width 14 % (10-15); White Blood Count 10.4 10^3/uL (3.5-10.8)
[2022-09-18 05:30] LABS: Calcium 8.5 mg/dL (8.6-10.3); HDL Cholesterol 39.3 mg/dL; Magnesium 1.7 mg/dL (1.9-2.7); Phosphorus 2.9 mg/dL (2.5-5.0); eGFR CKD-EPI 131.4 (>60)
[2022-09-18] MEDS ORDERED: Dextrose 50% Syringe 50 ml 25 GM/50 ML SYRINGE IV PUSH PRN (05:52)
[2022-09-18] MEDS: Pantoprazole VIAL 40 MG VIAL IV SCH (07:51)
[2022-09-18] MEDS ORDERED: Potassium Chlor 20 meq TAB.ER PO ONE (09:27)
[2022-09-18] MEDS ORDERED: Magnesium Sulfate 2 gm BAG 2 GM/50 ML BAG IVPB ONE (09:27)
[2022-09-18 10:24] LABS: Venous Bicarbonate HCO3 19.9 mmol/L (24-28)
[2022-09-18 10:44] VITALS: BP 107/72
[2022-09-18 10:45] LABS: Calcium 7.9 mg/dL (8.6-10.3); Potassium 4.1 mmol/L (3.5-5.0); eGFR CKD-EPI 134.2 (>60)
[2022-09-18] MEDS ORDERED: Insulin GLARGINE 100 un/ml 10 ml VIAL SUBCUT SCH (21:00)
== END 2022-09-18 11:00 | disposition left against medical advice (07) | DRG 420 ==
LOC: ED 06:09 → EDHOLD 08:24 → ICU 11:38
PROVIDERS: ADMIT Internal Medicine; ATTEND Internal Medicine

== ENCOUNTER 2022-10-12 13:35 | Inpatient (IN) ==
[2022-10-12 14:32] LABS: PO2 Arterial 140 mmHg (80-100)
[2022-10-12 14:42] LABS: ABS Basophils 0.1 10^3/ul (0-0.2); ABS Lymphocytes 2.4 10^3/ul (1.0-4.8); ABS Monocytes 0.6 10^3/ul (0-0.8); ABS Neutrophils 16.4 10^3/ul (1.5-7.7); Eosinophil % 0.1 %; Hematocrit 45 % (35-47); Hemoglobin 14.1 g/dL (12.0-16.0); Lymphocyte % 12.4 %; Mean Corpuscular HGB Conc 31 g/dL (31-36); Mean Corpuscular Hemoglobin 32 pg (27-31); Mean Corpuscular Volume 101 fL (80-97); Mean Platelet Volume 8.6 fL (7.4-10.4); Platelet Count 539 10^3/uL (150-450); Red Blood Count 4.43 10^6 /uL (3.70-4.87); Red Cell Distribution Width 15 % (10-15); White Blood Count 19.6 10^3/uL (3.5-10.8)
[2022-10-12 15:04] LABS: High Sens Troponin Baseline 5 pg/mL (<15)
[2022-10-12 15:34] LABS: ALT 19 U/L (7-52); AST 13 U/L (13-39); Albumin/Globulin Ratio 1.3 (1-3); Alkaline Phosphatase 140 U/L (35-149); Blood Urea Nitrogen 20 mg/dL (6-24); Calcium 8.9 mg/dL (8.6-10.3); Chloride 104 mmol/L (101-111); Creatine Kinase 27 U/L (10-223); Phosphorus 4.9 mg/dL (2.5-5.0); Sodium 133 mmol/L (135-145); eGFR CKD-EPI 97.9 (>60)
[2022-10-12 15:39] LABS: HCG Pregnancy < 0.60 mIU/mL
[2022-10-12 15:40] LABS: CO2 Carbon Dioxide < 7 mmol/L (22-32); Glucose 642 mg/dL (70-100); Potassium 5.7 mmol/L (3.5-5.0)
[2022-10-12] MEDS ORDERED: NORMOSOL-R pH 7.4 1000 mL BAG 1,000 ML IV ONE (15:40)
[2022-10-12] MEDS ORDERED: Dextrose 50% Syringe 50 ml 25 GM/50 ML SYRINGE IV PUSH PRN ×2 (15:40→16:00)
[2022-10-12 15:48] LABS: TSH Ultra Thyroid Stim Horm 1.61 mcIU/mL (0.34-5.60)
[2022-10-12 16:37] LABS: High Sensitivity Troponin 1 Hr 6 pg/mL (<15)
[2022-10-12 16:39] LABS: PO2 Arterial 138 mmHg (80-100)
[2022-10-12] MEDS ORDERED: NORMOSOL-R pH 7.4 1000 mL BAG 1,000 ML IV SCH (17:00)
[2022-10-12] MEDS: Insulin Infusion 100unit/100mL 100 UNIT/100 ML BAG IV SCH (17:05)
[2022-10-12 17:49] LABS: Blood Urea Nitrogen 24 mg/dL (6-24); Calcium 8.8 mg/dL (8.6-10.3); Chloride 103 mmol/L (101-111); Sodium 133 mmol/L (135-145); eGFR CKD-EPI 96.5 (>60)
[2022-10-12 17:52] LABS: CO2 Carbon Dioxide < 7 mmol/L (22-32); Glucose 694 mg/dL (70-100)
[2022-10-12] MEDS ORDERED: Ondansetron 4 mg VIAL 2 MG/ML 2 ml VIAL IV PRN (17:55)
[2022-10-12 18:49] LABS: Blood Urea Nitrogen 26 mg/dL (6-24); Chloride 104 mmol/L (101-111); Creatine Kinase 29 U/L (10-223); Phosphorus 5.8 mg/dL (2.5-5.0); Sodium 134 mmol/L (135-145); eGFR CKD-EPI 90.3 (>60)
[2022-10-12 18:55] LABS: CO2 Carbon Dioxide < 7 mmol/L (22-32); Glucose 659 mg/dL (70-100); Potassium 5.5 mmol/L (3.5-5.0)
[2022-10-12 20:58] LABS: Creatine Kinase 31 U/L (10-223); Magnesium 2.1 mg/dL (1.9-2.7); Phosphorus 5.8 mg/dL (2.5-5.0)
[2022-10-12] MEDS ORDERED: D5W 1/2 NS 1000 ml BAG 1,000 ML IV SCH (22:00)
[2022-10-12 22:04] LABS: Blood Urea Nitrogen 24 mg/dL (6-24); Calcium 8.9 mg/dL (8.6-10.3); Chloride 110 mmol/L (101-111); Glucose 304 mg/dL (70-100); Potassium 4.8 mmol/L (3.5-5.0); Sodium 140 mmol/L (135-145); eGFR CKD-EPI 105.2 (>60)
[2022-10-12 22:09] LABS: CO2 Carbon Dioxide < 7 mmol/L (22-32)
[2022-10-12] MEDS ORDERED: D10W 1000 ml BAG 1,000 ML IV SCH (23:45)
[2022-10-13] MEDS: D10W 1000 ml BAG 1,000 ML IV SCH ×4 (00:07→16:04)
[2022-10-13 01:53] LABS: Urine Appearance Clear; Urine Bilirubin 1+ (Small) (Negative); Urine Glucose Negative (Negative); Urine Ketones 4+ (>=160mg/dL) (Negative)
[2022-10-13 01:54] LABS: Urine Blood Trace (Intact) (Negative); Urine Specific Gravity 1.032 (1.002-1.030)
[2022-10-13 01:55] LABS: Urine Nitrite Negative (Negative); Urine Protein 1+ (30 mg/dL) (Negative); Urine Urobilinogen 0.2 (Negative) (Negative); Urine pH 5.5 (5.0-9.0)
[2022-10-13 02:02] LABS: Urine Bacteria 1+ (Absent); Urine Red Blood Cell 1+(3-5/hpf) (Absent); Urine Squamous Epithelial Cell Present (Absent); Urine White Blood Cell 1+(6-10/hpf) (Absent)
[2022-10-13 02:05] LABS: Urine Color Yellow
[2022-10-13] MEDS: Insulin Infusion 100unit/100mL 100 UNIT/100 ML BAG IV SCH (02:20)
[2022-10-13 02:21] LABS: Calcium 9.1 mg/dL (8.6-10.3); Magnesium 1.7 mg/dL (1.9-2.7); Potassium 4.1 mmol/L (3.5-5.0)
[2022-10-13] MEDS ORDERED: Magnesium Sulfate 2 gm BAG 2 GM/50 ML BAG IVPB ONE (02:26)
[2022-10-13 02:27] LABS: Phosphorus 2.4 mg/dL (2.5-5.0); eGFR CKD-EPI 110.1 (>60)
[2022-10-13 02:31] LABS: Urine Benzodiazepine Screen None Detected (None Detect); Urine Cannabinoids Screen None Detected (None Detect); Urine Opiates Screen None Detected (None Detect)
[2022-10-13] MEDS ORDERED: Linezolid 600 MG IVPREMIX(*) 600 MG/300 ML BAG IVPB SCH (03:00)
[2022-10-13 05:00] LABS: Calcium 9.2 mg/dL (8.6-10.3); Phosphorus 2.1 mg/dL (2.5-5.0); Potassium 3.6 mmol/L (3.5-5.0); eGFR CKD-EPI 126.7 (>60)
[2022-10-13 05:25] LABS: ABS Monocytes 0.8 10^3/ul (0-0.8); ABS Neutrophils 11.4 10^3/ul (1.5-7.7); Hematocrit 36 % (35-47); Hemoglobin 12.5 g/dL (12.0-16.0); Lymphocyte % 13.9 %; Mean Corpuscular HGB Conc 34 g/dL (31-36); Mean Corpuscular Hemoglobin 31 pg (27-31); Mean Corpuscular Volume 91 fL (80-97); Mean Platelet Volume 7.6 fL (7.4-10.4); Platelet Count 419 10^3/uL (150-450); Red Cell Distribution Width 13 % (10-15); White Blood Count 14.2 10^3/uL (3.5-10.8)
[2022-10-13 06:22] LABS: Calcium 8.7 mg/dL (8.6-10.3); Magnesium 2.4 mg/dL (1.9-2.7); Phosphorus 2.2 mg/dL (2.5-5.0); Potassium 3.7 mmol/L (3.5-5.0); eGFR CKD-EPI 108.4 (>60)
[2022-10-13] MEDS ORDERED: KCL 20 MEQ/100 ML IVPREMIX 20 MEQ/100 ML BAG IV ONE (06:33)
[2022-10-13 08:54] LABS: PCO2 Arterial 26 mmHg (35-45); PO2 Arterial 111 mmHg (80-100)
[2022-10-13] MEDS ORDERED: Dextrose 50% Syringe 50 ml 25 GM/50 ML SYRINGE IV PUSH PRN (09:32)
[2022-10-13] MEDS: Insulin GLARGINE 100 un/ml 10 ml VIAL SUBCUT SCH (10:31)
[2022-10-13 10:32] LABS: Calcium 8.4 mg/dL (8.6-10.3); Phosphorus 2.6 mg/dL (2.5-5.0); Potassium 4.6 mmol/L (3.5-5.0); eGFR CKD-EPI 126.7 (>60)
[2022-10-13] MEDS ORDERED: Lactated Ringers 1000 ml BAG 1,000 ML IV ONE (11:52)
[2022-10-13] MEDS: Amoxicillin/Clavul 875/125 TAB (Augmentin 875 tab) PO SCH ×2 (13:48→20:09)
[2022-10-13] MEDS: Enoxaparin 30 MG/0.3 ML SYR SUBCUT SCH (13:50)
[2022-10-13] MEDS: Chlorhexidine MOUTHWASH 0.12% 15 ML UDC SWISH SPIT SCH ×2 (13:50→20:09)
[2022-10-13 14:11] LABS: Blood Urea Nitrogen 14 mg/dL (6-24); Chloride 100 mmol/L (101-111); Potassium 3.6 mmol/L (3.5-5.0); Sodium 126 mmol/L (135-145); eGFR CKD-EPI 106.8 (>60)
[2022-10-13 14:12] LABS: Magnesium 1.6 mg/dL (1.9-2.7); Phosphorus 1.9 mg/dL (2.5-5.0)
[2022-10-13 14:34] LABS: Anion Gap 14 mmol/L (2-11); CO2 Carbon Dioxide 12 mmol/L (22-32)
[2022-10-13 16:45] LABS: Calcium 8.3 mg/dL (8.6-10.3); Potassium 3.8 mmol/L (3.5-5.0)
[2022-10-13 16:51] LABS: eGFR CKD-EPI 125.3 (>60)
[2022-10-13] MEDS: Potassium Chloride IV 20 MEQ in Lactated Ringers 1000 ml BAG 1,000 ML IVPB SCH (18:25)
[2022-10-13 19:26] LABS: Blood Urea Nitrogen 13 mg/dL (6-24); CO2 Carbon Dioxide 17 mmol/L (22-32); Calcium 8.8 mg/dL (8.6-10.3); Chloride 107 mmol/L (101-111); Glucose 292 mg/dL (70-100); Sodium 135 mmol/L (135-145); eGFR CKD-EPI 128.1 (>60)
[2022-10-13 19:28] LABS: Anion Gap 11 mmol/L (2-11)
[2022-10-13] MEDS ORDERED: Potassium Chlor 20 meq TAB.ER PO ONE (22:26)
[2022-10-14] MEDS: Potassium Chloride IV 20 MEQ in Lactated Ringers 1000 ml BAG 1,000 ML IVPB SCH (03:23)
[2022-10-14 05:12] LABS: Hematocrit 24 % (35-47); Hemoglobin 7.9 g/dL (12.0-16.0); Mean Corpuscular HGB Conc 34 g/dL (31-36); Mean Corpuscular Hemoglobin 31 pg (27-31); Mean Corpuscular Volume 91 fL (80-97); Mean Platelet Volume 7.3 fL (7.4-10.4); Platelet Count 190 10^3/uL (150-450); Red Blood Count 2.57 10^6 /uL (3.70-4.87); Red Cell Distribution Width 13 % (10-15); White Blood Count 6.1 10^3/uL (3.5-10.8)
[2022-10-14 05:52] LABS: Calcium 7.6 mg/dL (8.6-10.3); Phosphorus 1.7 mg/dL (2.5-5.0); Potassium 3.8 mmol/L (3.5-5.0); eGFR CKD-EPI 143.4 (>60)
[2022-10-14] MEDS ORDERED: Potassium Phosphate IV 15 MMOLE in NS 0.9% 250 ml 250 ML IVPB ONE (06:25)
[2022-10-14 07:09] LABS: ABS Basophils 0.1 10^3/ul (0-0.2); ABS Lymphocytes 2.9 10^3/ul (1.0-4.8); ABS Monocytes 0.5 10^3/ul (0-0.8); ABS Neutrophils 4.8 10^3/ul (1.5-7.7); Eosinophil % 0.4 %; Hematocrit 33 % (35-47); Hemoglobin 11.2 g/dL (12.0-16.0); Lymphocyte % 35.1 %; Mean Corpuscular HGB Conc 35 g/dL (31-36); Mean Corpuscular Hemoglobin 31 pg (27-31); Mean Corpuscular Volume 90 fL (80-97); Mean Platelet Volume 7.3 fL (7.4-10.4); Platelet Count 291 10^3/uL (150-450); Red Blood Count 3.61 10^6 /uL (3.70-4.87); Red Cell Distribution Width 13 % (10-15); White Blood Count 8.3 10^3/uL (3.5-10.8)
[2022-10-14 07:53] LABS: Calcium 8.5 mg/dL (8.6-10.3); Magnesium 1.4 mg/dL (1.9-2.7); Potassium 3.8 mmol/L (3.5-5.0); eGFR CKD-EPI 138.7 (>60)
[2022-10-14] MEDS ORDERED: Magnesium Sulf 4 GM/100 ML IV 4,000 MG/100 ML BAG IVPB ONE (08:16)
[2022-10-14] MEDS ORDERED: DULoxetine DR 60 mg CAP PO SCH (09:00)
[2022-10-14] MEDS: Insulin GLARGINE 100 un/ml 10 ml VIAL SUBCUT SCH (09:16)
[2022-10-14] MEDS: Chlorhexidine MOUTHWASH 0.12% 15 ML UDC SWISH SPIT SCH ×2 (09:17→13:08)
[2022-10-14] MEDS ORDERED: Dextrose 50% Syringe 50 ml 25 GM/50 ML SYRINGE IV PUSH PRN (12:39)
[2022-10-14] MEDS: Enoxaparin 30 MG/0.3 ML SYR SUBCUT SCH (13:07)
[2022-10-14 14:05] VITALS: BP 125/85
[2022-10-14 16:17] LABS: Calcium 8.4 mg/dL (8.6-10.3); Potassium 3.8 mmol/L (3.5-5.0); eGFR CKD-EPI 141.7 (>60)
== END 2022-10-14 16:07 | disposition left against medical advice (07) | DRG 420 ==
LOC: ED 13:35 → EDHOLD 15:59 → ICU 17:40
PROVIDERS: ADMIT Surgery Surgical Critical Care; ATTEND Surgery Surgical Critical Care